=== PATIENT | female | born 1940 | race Caucasian/White ===

== ENCOUNTER → 2018-01-08 07:06 | Outpatient (CLI) | payer MEDICARE, OTHER, SELFPAY ==
[2018-01-08 08:39] LABS: Add Manual Diff / Slide Review NO; Basophils Percent Auto 0.9 % (0-2); Eosinophils Percent Auto 2.3 % (2-4); Hematocrit 40.3 % (36-46); Hemoglobin 13.9 g/dL (12.0-16.0); Mean Corpuscular HGB Conc 34.6 % (30-36); Mean Corpuscular Hemoglobin 31.8 PG (26-34); Mean Corpuscular Volume 91.7 fL (80-100); Monocytes Percent Auto 13.3 % (3-14); Neutrophils Absolute Auto 1900 /uL (3000-5900); Neutrophils Percent Auto 40.5 % (50-75); Platelet Count 213 X10^3/uL (150-400); Red Blood Cell Count 4.39 X10^6/uL (4.0-5.2); Red Cell Distribution Width 12.8 % (11.6-14.8); White Blood Cell Count 4.6 X10^3/uL (4.5-11.0)
[2018-01-08 09:13] LABS: Alanine Aminotransferase 31 IU/L (9-52); Albumin 4.1 g/dL (3.5-5.0); Albumin Globulin Ratio 1.5 (1.0-2.8); Alkaline Phosphatase 93 U/L (38-126); Aspartate Aminotransferase 37 IU/L (14-36); Bilirubin Total 0.5 mg/dL (0.2-1.3); Calcium 9.5 mg/dL (8.4-10.2); Cholesterol 185 mg/dL (140-199); Estimated Glomerular Filt Rate > 60.0 mL/min (>60); Globulin 2.8 g/dL (1.7-4.1); Glucose 95 mg/dL (80-110); HDL Cholesterol 67 mg/dL (40-60); HEMOLYSIS < 15 (0-50); LDL Cholesterol Calculated 100 mg/dL (<100); Potassium 4.1 mmol/L (3.4-5.1); Sodium 139 mmol/L (137-145); Total Protein 6.9 g/dL (6.3-8.2); Triglycerides 89 mg/dL (35-150)
== END ==
PROVIDERS: PCP Internal Medicine; Visit Provider Internal Medicine
DX: I10 Essential (primary) hypertension (principal); E78.2 Mixed hyperlipidemia
CPT/HCPCS: 36415; 80053; 80061; 85025

== ENCOUNTER 2018-03-04 14:09 | Inpatient (IN) | payer MEDICARE, OTHER, SELFPAY ==
[2018-03-04] VITALS (12 sets, daily range): BP systolic 103–143; BP diastolic 61–88; PULSE 84–143; RESP 10–24; TEMP 36.5–37.1; O2SAT 95–100; BMI 23.7
--- NOTE | 2018-03-04 14:24 | ED.DIZZY ---
HPI - Dizziness <VARSHA Parks - Last Filed: 03/04/18 22:43> General Chief Complaint: Dizziness Stated Complaint: SHORTNESS OF BREATH,SHAKY Time Seen by Provider: 03/04/18 14:23 History of Present Illness HPI Narrative: 77-year-old female here for complaint of feeling lightheaded and slightly dizzy today. She reports that she started feeling like this when she woke up this morning at approximately 4 o'clock. She reports when she stood up she started feeling lightheaded. She denies any chest pain. Although she does state that she feels slightly different in the chest no shortness of breath. No fevers no chills. She denies any nausea or vomiting. She was able to ambulate into the emergency room. She denies any cardiac history. She denies any stressors or Related Data Home Medications Medication Instructions Recorded Confirmed NUTRITIONAL SUPPLEMENT (CRANBERRY) 1 cap PO Q DAY #0 06/27/11 03/04/18 Vitamin D3 2,000 iu PO Q DAY #0 06/27/11 03/04/18 polyethylene glycol 3350 [Miralax] 17 gm PO Q DAY #0 01/28/12 03/04/18 pramipexole [Mirapex] 0.25 mg PO HS 03/04/18 03/04/18 Previous Rx's Medication Instructions Recorded estradiol [Vagifem] 10 mcg VG SEE INSTRUCTIONS #90 tab 11/25/17 simvastatin 40 mg tablet 40 mg PO Q DAY #365 tab 01/07/18 apixaban [Eliquis] 5 mg PO BID #30 tab 03/05/18 diltiazem HCl 240 mg PO DAILY #30 cap 03/05/18 Allergies Allergy/AdvReac Type Severity Reaction Status Date / Time niacin [NIACIN] AdvReac Unknown itching Verified 01/07/18 11:39 Review of Systems <VARSHA Parks - Last Filed: 03/04/18 22:43> Constitutional Denies chills, Denies fatigue, Denies fever(s), Denies lethargy and Denies weakness Eyes Denies change in vision, Denies eye discharge, Denies irritation and Denies loss of vision ENT Ears, Nose, Mouth, and Throat: Denies change in voice, Denies neck pain and Denies sore throat Cardiovascular Denies chest pain, Reports lightheadedness, Denies dyspnea and Denies dyspnea on exertion Respiratory Denies cough, Denies dyspnea, Denies dyspnea on exertion and Denies wheezing Gastrointestinal Gastrointestinal: Denies abdominal pain, Denies change in bowel habits, Denies diarrhea, Denies nausea and Denies vomiting Genitourinary Denies hematuria, Denies flank pain, Denies urinary incontinence and Denies urinary urgency Musculoskeletal Denies neck pain Integumentary/Breasts Denies pruritus, Denies erythema, Denies rash and Denies wounds Neurologic Denies confusion, Denies loss of vision and Denies weakness Psychiatric Denies anxiety, Denies confusion, Denies depression, Denies homicidal ideation and Denies suicidal ideation Endocrine Denies fatigue and Denies flushing Hematologic/Lymphatic Denies easy bruising Allergic/Immunologic Denies wheezing Exam <VARSHA Parks - Last Filed: 03/04/18 22:43> Initial Vital Signs Initial Vital Signs: Vital Signs Temperature 97.8 F 03/04/18 14:19 Pulse Rate 137 H 03/04/18 14:19 Respiratory Rate 22 03/04/18 14:19 Blood Pressure 118/80 03/04/18 14:19 Pulse Oximetry 97 03/04/18 14:19 Const General: cooperative and well developed Nutritional Appearance: well nourished Orientation: alert, awake, oriented x3 and not confused [facility] Mouth: oral mucosae normal and moist mucous membranes Eyes Conjunctivae: conjunctivae normal Sclera: sclerae normal Pupils: PERRL EOM: EOM intact bilaterally Resp Effort & Inspection: normal respiratory effort, able to speak in complete sentences, no respiratory distress and no use of accessory muscles Auscultation: clear to auscultation bilaterally, no rales, no rhonchi and no wheezes Cardio Rate: tachycardic Rhythm: abnormal rhythm regularly irregular Heart Sounds: no click, no gallops, no murmurs and no rubs Pulses: normal peripheral pulses Skin General: no rashes or lesions noted, No jaundice and No petechiae Extrem General: full ROM, no clubbing, cyanosis or edema, no pedal edema, no calf tenderness and No edema <Faye Soler DO - Last Filed: 03/08/18 06:33> Initial Vital Signs Initial Vital Signs: Vital Signs Temperature 97.8 F 07/19/18 14:19 Pulse Rate 137 H 03/04/18 14:19 Respiratory Rate 22 03/04/18 14:19 Blood Pressure 118/80 03/04/18 14:19 Pulse Oximetry 97 03/04/18 14:19 Course <VARSHA Parks - Last Filed: 03/04/18 22:43> Orders Ordered: Discontinued Medications Apixaban (Eliquis) 5 mg PO BID [facility] Last Admin: 03/05/18 18:30 Dose: 5 mg Admin: 03/05/18 09:18 Dose: 5 mg Admin: 03/04/18 20:15 Dose: 5 mg Diltiazem HCl (Cardizem) 20 mg IV NOW ONE Stop: 03/04/18 14:31 Last Admin: 03/04/18 15:59 Dose: Diltiazem HCl (Cardizem) 10 mg IV NOW ONE Stop: 03/04/18 14:51 Last Admin: 03/04/18 14:25 Dose: 10 mg Diltiazem HCl (Cardizem) 30 mg PO Q6HR [facility] Last Admin: 03/05/18 12:49 Dose: 30 mg Admin: 03/05/18 09:17 Dose: 30 mg Diltiazem HCl (Cardizem) 30 mg PO NOW ONE Stop: 03/05/18 13:55 Last Admin: 03/05/18 14:00 Dose: 30 mg Diltiazem HCl (Cardizem) 60 mg PO Q6HR [facility] Diltiazem HCl (Cardizem Cd) 240 mg PO DAILY [facility] Last Admin: 03/05/18 18:50 Dose: 240 mg Diltiazem HCl 125 mg/ Dextrose 125 mls @ 5 mls/hr IV TITRATE [facility]; Protocol Last Admin: 03/05/18 14:52 Dose: Sodium Chloride (Normal Saline 0.9%) 500 mls @ 500 mls/hr IV BOLUS ONE Stop: 03/04/18 20:20 Last Infusion: 03/04/18 20:15 Dose: 0 mls/hr Admin: 03/04/18 19:14 Dose: 500 mls/hr Sodium Chloride (Normal Saline 0.9%) 250 mls @ 21 mls/hr IV Q24H PRN PRN Reason: Flush Metoprolol Tartrate (Lopressor) 25 mg PO NOW ONE Stop: 03/04/18 17:15 Last Admin: 03/04/18 17:21 Dose: 25 mg Pramipexole Dihydrochloride (Mirapex) 0.25 mg PO 1900 [facility] Last Admin: 03/04/18 22:01 Dose: 0.25 mg Admin: 03/04/18 21:58 Dose: 0.25 mg Vital Signs - 8 hr 03/04/18 15:41 03/04/18 16:00 03/04/18 17:07 Temperature Pulse Rate 104 H 102 H 106 H Respiratory Rate 15 15 13 Blood Pressure Blood Pressure [Right Arm] 123/81 H 109/61 120/76 Pulse Oximetry 100 95 99 03/04/18 18:05 03/04/18 19:00 03/04/18 19:10 Temperature 98.8 F Pulse Rate 113 H 101 H 94 H Respiratory Rate 24 19 11 L Blood Pressure 120/88 H 117/84 H 143/79 H Blood Pressure [Right Arm] Pulse Oximetry 100 97 99 03/04/18 20:00 03/04/18 21:00 03/04/18 22:00 Temperature 97.7 F 97.8 F Pulse Rate 93 H 84 84 Respiratory Rate 10 L 12 13 Blood Pressure 127/87 H 107/62 103/68 Blood Pressure [Right Arm] Pulse Oximetry 97 95 95 <Faye Soler, DO - Last Filed: 03/08/18 06:33> Orders Ordered: Discontinued Medications Apixaban (Eliquis) 5 mg PO BID [facility] Last Admin: 03/05/18 18:30 Dose: 5 mg Admin: 03/05/18 09:18 Dose: 5 mg Admin: 03/04/18 20:15 Dose: 5 mg Diltiazem HCl (Cardizem) 20 mg IV NOW ONE Stop: 03/04/18 14:31 Last Admin: 03/04/18 15:59 Dose: Diltiazem HCl (Cardizem) 10 mg IV NOW ONE Stop: 03/04/18 14:51 Last Admin: 03/04/18 14:25 Dose: 10 mg Diltiazem HCl (Cardizem) 30 mg PO Q6HR [facility] Last Admin: 03/05/18 12:49 Dose: 30 mg Admin: 03/05/18 09:17 Dose: 30 mg Diltiazem HCl (Cardizem) 30 mg PO NOW ONE Stop: 03/05/18 13:55 Last Admin: 03/05/18 14:00 Dose: 30 mg Diltiazem HCl (Cardizem) 60 mg PO Q6HR [facility] Diltiazem HCl (Cardizem Cd) 240 mg PO DAILY [facility] Last Admin: 03/05/18 18:50 Dose: 240 mg Diltiazem HCl 125 mg/ Dextrose 125 mls @ 5 mls/hr IV TITRATE [facility]; Protocol Last Admin: 03/05/18 14:52 Dose: Sodium Chloride (Normal Saline 0.9%) 500 mls @ 500 mls/hr IV BOLUS ONE Stop: 03/04/18 20:20 Last Infusion: 03/04/18 20:15 Dose: 0 mls/hr Admin: 03/04/18 19:14 Dose: 500 mls/hr Sodium Chloride (Normal Saline 0.9%) 250 mls @ 21 mls/hr IV Q24H PRN PRN Reason: Flush Metoprolol Tartrate (Lopressor) 25 mg PO NOW ONE Stop: 03/04/18 17:15 Last Admin: 03/04/18 17:21 Dose: 25 mg Pramipexole Dihydrochloride (Mirapex) 0.25 mg PO 1900 [facility] Last Admin: 03/04/18 22:01 Dose: 0.25 mg Admin: 03/04/18 21:58 Dose: 0.25 mg Vital Signs - 8 hr 03/04/18 15:41 03/04/18 16:00 03/04/18 17:07 Temperature Pulse Rate 104 H 102 H 106 H Respiratory Rate 15 15 13 Blood Pressure Blood Pressure [Right Arm] 123/81 H 109/61 120/76 Pulse Oximetry 100 95 99 03/04/18 18:05 03/04/18 19:00 03/04/18 19:10 Temperature 98.8 F Pulse Rate 113 H 101 H 94 H Respiratory Rate 24 19 11 L Blood Pressure 120/88 H 117/84 H 143/79 H Blood Pressure [Right Arm] Pulse Oximetry 100 97 99 03/04/18 20:00 03/04/18 21:00 03/04/18 22:00 Temperature 97.7 F 97.8 F Pulse Rate 93 H 84 84 Respiratory Rate 10 L 12 13 Blood Pressure 127/87 H 107/62 103/68 Blood Pressure [Right Arm] Pulse Oximetry 97 95 95 MDM - Dizziness <Lm EspitiaVARSHA - Last Filed: 03/04/18 22:43> Lab Data Result diagrams: 03/05/18 04:30 03/05/18 04:30 Lab Results 03/04/18 03/04/18 03/04/18 Range/Units 14:25 14:25 14:25 WBC 8.9 (4.5-11.0) X10^3/uL RBC 4.79 (4.0-5.2) X10^6/uL Hgb 15.1 (12.0-16.0) g/dL Hct 44.4 (36-46) % MCV 92.5 (80-100) fL MCH 31.4 (26-34) PG MCHC 34.0 (30-36) % RDW 13.3 (11.6-14.8) % Plt Count 289 (150-400) X10^3/uL Neut % (Auto) 64.4 (50-75) % Lymph % (Auto) 25.6 (25-40) % [place] % (Auto) 9.8 (3-14) % Eos % (Auto) 0.0 L (2-4) % Baso % (Auto) 0.2 (0-2) % Neut # (Auto) 5700 (0405-2751) /uL PT 11.6 (10.1-12.7) SECONDS INR 1.1 (0.9-1.3) APTT 27 (26.4-36.2) SECONDS Sodium 138 (137-145) mmol/L Potassium 4.0 (3.4-5.1) mmol/L Chloride 104 (98-107) mmol/L Carbon Dioxide 24 (22-32) mmol/L BUN 32 H (7-17) mg/dL Creatinine 1.00 (0.52-1.04) mg/dL Estimated GFR 54.1 L (>60) mL/min BUN/Creatinine Ratio 32.0 H (6-22) Glucose 125 H (80-110) mg/dL Calcium 9.4 (8.4-10.2) mg/dL Magnesium (1.6-2.3) mg/dL Total Bilirubin 0.7 (0.2-1.3) mg/dL AST 35 (14-36) IU/L ALT 29 (9-52) IU/L Alkaline Phosphatase 73 (38-126) U/L Total Creatine Kinase 103 (30-135) U/L CK-MB (CK-2) 1.99 (<2.37) ng/mL CK-MB (CK-2) Rel Index 1.9 (1.5-5.0) % Troponin I < 0.012 (0.01-0.034) ng/mL Total Protein 7.4 (6.3-8.2) g/dL Albumin 4.4 (3.5-5.0) g/dL Globulin 3.0 (1.7-4.1) g/dL Albumin/Globulin Ratio 1.5 (1.0-2.8) TSH (0.47-4.68) uIU/mL 03/04/18 03/04/18 03/05/18 Range/Units 14:25 14:25 04:30 WBC 7.8 (4.5-11.0) X10^3/uL RBC 4.97 (4.0-5.2) X10^6/uL Hgb 15.7 (12.0-16.0) g/dL Hct 46.2 H (36-46) % MCV 92.9 (80-100) fL MCH 31.5 (26-34) PG MCHC 33.9 (30-36) % RDW 13.3 (11.6-14.8) % Plt Count 290 (150-400) X10^3/uL Neut % (Auto) 52.6 (50-75) % Lymph % (Auto) 34.9 (25-40) % [place] % (Auto) 11.8 (3-14) % Eos % (Auto) 0.3 L (2-4) % Baso % (Auto) 0.4 (0-2) % Neut # (Auto) 4100 (9164-8006) /uL PT (10.1-12.7) SECONDS INR (0.9-1.3) APTT (26.4-36.2) SECONDS Sodium (137-145) mmol/L Potassium (3.4-5.1) mmol/L Chloride (98-107) mmol/L Carbon Dioxide (22-32) mmol/L BUN (7-17) mg/dL Creatinine (0.52-1.04) mg/dL Estimated GFR (>60) mL/min BUN/Creatinine Ratio (6-22) Glucose (80-110) mg/dL Calcium (8.4-10.2) mg/dL Magnesium 2.4 H (1.6-2.3) mg/dL Total Bilirubin (0.2-1.3) mg/dL AST (14-36) IU/L ALT (9-52) IU/L Alkaline Phosphatase (38-126) U/L Total Creatine Kinase (30-135) U/L CK-MB (CK-2) (<2.37) ng/mL CK-MB (CK-2) Rel Index (1.5-5.0) % Troponin I (0.01-0.034) ng/mL Total Protein (6.3-8.2) g/dL Albumin (3.5-5.0) g/dL Globulin (1.7-4.1) g/dL Albumin/Globulin Ratio (1.0-2.8) TSH 2.11 (0.47-4.68) uIU/mL 03/05/ Range/Units 04:30 WBC (4.5-11.0) X10^3/uL RBC (4.0-5.2) X10^6/uL Hgb (12.0-16.0) g/dL Hct (36-46) % MCV (80-100) fL MCH (26-34) PG MCHC (30-36) % RDW (11.6-14.8) % Plt Count (150-400) X10^3/uL Neut % (Auto) (50-75) % Lymph % (Auto) (25-40) % [place] % (Auto) (3-14) % Eos % (Auto) (2-4) % Baso % (Auto) (0-2) % Neut # (Auto) (0171-4987) /uL PT (10.1-12.7) SECONDS INR (0.9-1.3) APTT (26.4-36.2) SECONDS Sodium 138 (137-145) mmol/L Potassium 4.0 (3.4-5.1) mmol/L Chloride 104 (98-107) mmol/L Carbon Dioxide 26 (22-32) mmol/L BUN 23 H (7-17) mg/dL Creatinine 0.80 (0.52-1.04) mg/dL Estimated GFR > 60.0 (>60) mL/min BUN/Creatinine Ratio 28.8 H (6-22) Glucose 107 (80-110) mg/dL Calcium 9.0 (8.4-10.2) mg/dL Magnesium (1.6-2.3) mg/dL Total Bilirubin 0.5 (0.2-1.3) mg/dL AST 30 (14-36) IU/L ALT 32 (9-52) IU/L Alkaline Phosphatase 71 (38-126) U/L Total Creatine Kinase (30-135) U/L CK-MB (CK-2) (<2.37) ng/mL CK-MB (CK-2) Rel Index (1.5-5.0) % Troponin I (0.01-0.034) ng/mL Total Protein 7.0 (6.3-8.2) g/dL Albumin 4.1 (3.5-5.0) g/dL Globulin 2.9 (1.7-4.1) g/dL Albumin/Globulin Ratio 1.4 (1.0-2.8) TSH (0.47-4.68) uIU/mL Imaging Data CT scan - chest: Radiologist's impression: Signed Patient: [place] Sierra MR#: [id number] : 1940 Acct:[id number] Age/Sex: 77 / F Date of Service: 03/04/18 Loc: ED Accession Number: [id number] Procedure: CT angio chest PE protocol Ordering Provider: Lm Espitia PROCEDURE: CT ANGIO CHEST PE PROTOCOL INDICATIONS: New onset AFib RVR history of breast cancer TECHNIQUE: After the administration of intravenous contrast, 2 mm thick sections acquired from the pulmonary apices to the posterior costophrenic angles. 3-dimensional maximum intensity projection (MIP) coronal and sagittal reformats were then acquired through the thorax. For radiation dose reduction, the following was used: automated exposure control, adjustment of mA and/or kV according to patient size. COMPARISON: [facility], CT, CT CARTER, 09/08/2016, 13:32. FINDINGS: Image quality: Excellent. Pulmonary arteries: Pulmonary arteries are prominent in size, and demonstrate no intraluminal filling defects to suggest central pulmonary embolism. Lungs and pleura: There is 11 mm left apical nodule (se 6 im 14). There is an ill-defined right middle lobe pulmonary nodule measuring up to 8 mm (se 6 im 48). No pleural effusions or pneumothorax. Central and peripheral airways are patent. Mediastinum: Heart size is normal, without pericardial effusion. There is a possible filling defect in the left ventricle. Right atrial enlargement. No mediastinal or hilar adenopathy. Thoracic aorta is normal in caliber and enhancement. Esophagus is normal in caliber, without hiatal hernia. Bones and chest wall: No suspicious bony lesions. Right mastectomy with implant reconstruction. Right axillary postoperative change. Abdomen: Visualized upper abdominal solid organs appear normal in the early arterial phase of enhancement. IMPRESSION: 1. No CT evidence of acute pulmonary emboli. The pulmonary arteries are prominent in size which may represent elevated pressure. 2. Possible filling defect within the left ventricle. Please note study is not performed with cardiac gating which precludes definitive evaluation of cardiac lumens. 3. Bilateral pulmonary nodules. Recommend followup as described below. Fleischner Society criteria for SOLID lung nodule followup. Nodule size (mm)Low-risk patientHigh-risk patient?4No follow-up neededFollow-up at 12 mo; if no change, no further follow-up>[id number] CT at 12 mo; if no change, no further follow-up needed.Initial follow-up CT at 6-12 mo, then 18-24 mo if no change. >6-8Initial follow-up CT at 6-12 mo, then 18-24 mo if no change. Initial follow-up CT at 3-6 mo, then 9-12 mo and 24 mo if no change. >8Follow-up CT at 3, 9, 24 mo. Or PET and/or biopsy.Same as for low-risk pts. Dictated by: Luis Fernando Cruz M.D. on 03/04/2018 at 16:08 Approved by: Luis Fernando Cruz M.D. on 03/04/2018 at 16:16 ECG Data Interpretation: EKG shows atrial fibrillation with RVR ventricular rate of 130. QRS duration of 101. QT of 330. MDM Narrative Medical decision making narrative: ekg shows Afib with RVR no prior history of AFib. She was treated with 10 mg of diltiazem iv which decreased here ventricular rate to approximately about 100. Although blood pressure systolic lead dropped to the 90s. She was not given any further diltiazem. PE chest CT was obtained and was negative for blood clot does show a incidental finding of 8 mm nodule to the left lung. CBC was unremarkable. Chem panel shows GFR of 54.1 otherwise was unremarkable. Coags were normal. Cardiac enzymes were obtained and were unremarkable. Patient's ventricular rate started to climb back up into 115-120 area. She was given 25 mg of metoprolol orally. Due to rate control patient is admitted to hospital. Discussed case with hospitalist Dr. Lynch. Who accepted patient. Patient admitted inpatient services. Patient did not have symptoms of chest pain or shortness of breath although she did state she felt different. <Faye Soler, DO - Last Filed: 03/08/18 06:33> Lab Data Attestation: I reviewed the patient's lab results. Lab Results 03/04/18 03/04/18 03/04/18 Range/Units 14:25 14:25 14:25 WBC 8.9 (4.5-11.0) X10^3/uL RBC 4.79 (4.0-5.2) X10^6/uL Hgb 15.1 (12.0-16.0) g/dL Hct 44.4 (36-46) % MCV 92.5 (80-100) fL MCH 31.4 (26-34) PG MCHC 34.0 (30-36) % RDW 13.3 (11.6-14.8) % Plt Count 289 (150-400) X10^3/uL Neut % (Auto) 64.4 (50-75) % Lymph % (Auto) 25.6 (25-40) % [place] % (Auto) 9.8 (3-14) % Eos % (Auto) 0.0 L (2-4) % Baso % (Auto) 0.2 (0-2) % Neut # (Auto) 5700 (3052-2847) /uL PT 11.6 (10.1-12.7) SECONDS INR 1.1 (0.9-1.3) APTT 27 (26.4-36.2) SECONDS Sodium 138 (137-145) mmol/L Potassium 4.0 (3.4-5.1) mmol/L Chloride 104 (98-107) mmol/L Carbon Dioxide 24 (22-32) mmol/L BUN 32 H (7-17) mg/dL Creatinine 1.00 (0.52-1.04) mg/dL Estimated GFR 54.1 L (>60) mL/min BUN/Creatinine Ratio 32.0 H (6-22) Glucose 125 H (80-110) mg/dL Calcium 9.4 (8.4-10.2) mg/dL Magnesium (1.6-2.3) mg/dL Total Bilirubin 0.7 (0.2-1.3) mg/dL AST 35 (14-36) IU/L ALT 29 (9-52) IU/L Alkaline Phosphatase 73 (38-126) U/L Total Creatine Kinase 103 (30-135) U/L CK-MB (CK-2) 1.99 (<2.37) ng/mL CK-MB (CK-2) Rel Index 1.9 (1.5-5.0) % Troponin I < 0.012 (0.01-0.034) ng/mL Total Protein 7.4 (6.3-8.2) g/dL Albumin 4.4 (3.5-5.0) g/dL Globulin 3.0 (1.7-4.1) g/dL Albumin/Globulin Ratio 1.5 (1.0-2.8) TSH (0.47-4.68) uIU/mL 03/04/18 03/04/18 03/05/18 Range/Units 14:25 14:25 04:30 WBC 7.8 (4.5-11.0) X10^3/uL RBC 4.97 (4.0-5.2) X10^6/uL Hgb 15.7 (12.0-16.0) g/dL Hct 46.2 H (36-46) % MCV 92.9 (80-100) fL MCH 31.5 (26-34) PG MCHC 33.9 (30-36) % RDW 13.3 (11.6-14.8) % Plt Count 290 (150-400) X10^3/uL Neut % (Auto) 52.6 (50-75) % Lymph % (Auto) 34.9 (25-40) % [place] % (Auto) 11.8 (3-14) % Eos % (Auto) 0.3 L (2-4) % Baso % (Auto) 0.4 (0-2) % Neut # (Auto) 4100 (7994-0932) /uL PT (10.1-12.7) SECONDS INR (0.9-1.3) APTT (26.4-36.2) SECONDS Sodium (137-145) mmol/L Potassium (3.4-5.1) mmol/L Chloride (98-107) mmol/L Carbon Dioxide (22-32) mmol/L BUN (7-17) mg/dL Creatinine (0.52-1.04) mg/dL Estimated GFR (>60) mL/min BUN/Creatinine Ratio (6-22) Glucose (80-110) mg/dL Calcium (8.4-10.2) mg/dL Magnesium 2.4 H (1.6-2.3) mg/dL Total Bilirubin (0.2-1.3) mg/dL AST (14-36) IU/L ALT (9-52) IU/L Alkaline Phosphatase (38-126) U/L Total Creatine Kinase (30-135) U/L CK-MB (CK-2) (<2.37) ng/mL CK-MB (CK-2) Rel Index (1.5-5.0) % Troponin I (0.01-0.034) ng/mL Total Protein (6.3-8.2) g/dL Albumin (3.5-5.0) g/dL Globulin (1.7-4.1) g/dL Albumin/Globulin Ratio (1.0-2.8) TSH 2.11 (0.47-4.68) uIU/mL 03/05/18 Range/Units 04:30 WBC (4.5-11.0) X10^3/uL RBC (4.0-5.2) X10^6/uL Hgb (12.0-16.0) g/dL Hct (36-46) % MCV (80-100) fL MCH (26-34) PG MCHC (30-36) % RDW (11.6-14.8) % Plt Count (150-400) X10^3/uL Neut % (Auto) (50-75) % Lymph % (Auto) (25-40) % [place] % (Auto) (3-14) % Eos % (Auto) (2-4) % Baso % (Auto) (0-2) % Neut # (Auto) (7541-2796) /uL PT (10.1-12.7) SECONDS INR (0.9-1.3) APTT (26.4-36.2) SECONDS Sodium 138 (137-145) mmol/L Potassium 4.0 (3.4-5.1) mmol/L Chloride 104 (98-107) mmol/L Carbon Dioxide 26 (22-32) mmol/L BUN 23 H (7-17) mg/dL Creatinine 0.80 (0.52-1.04) mg/dL Estimated GFR > 60.0 (>60) mL/min BUN/Creatinine Ratio 28.8 H (6-22) Glucose 107 (80-110) mg/dL Calcium 9.0 (8.4-10.2) mg/dL Magnesium (1.6-2.3) mg/dL Total Bilirubin 0.5 (0.2-1.3) mg/dL AST 30 (14-36) IU/L ALT 32 (9-52) IU/L Alkaline Phosphatase 71 (38-126) U/L Total Creatine Kinase (30-135) U/L CK-MB (CK-2) (<2.37) ng/mL CK-MB (CK-2) Rel Index (1.5-5.0) % Troponin I (0.01-0.034) ng/mL Total Protein 7.0 (6.3-8.2) g/dL Albumin 4.1 (3.5-5.0) g/dL Globulin 2.9 (1.7-4.1) g/dL Albumin/Globulin Ratio 1.4 (1.0-2.8) TSH (0.47-4.68) uIU/mL ECG Data Attestation: I personally reviewed and interpreted this ECG as follows: Prior ECG tracings: not available for review Interpretation: EKG 1. atrial fibrillation rate [address] changes Q-wave noted in lead 3 some artifact noted in V4 EKG 2. Atrial fibrillation rate 134 with artifact still noted in V4 no ST changes Discharge Plan Departure Patient Disposition: Admitted As Inpatient Clinical Impression: Atrial fibrillation with RVR Discharge Date/Time: 03/04/18 18:17 Interventions: ED Discharge Assessment Last Done: 03/04/18 18:05 Admit Date/Time: 03/04/18 18:06 Admit Provider: Alma Rosa Lynch <Faye Soler DO - Last Filed: 03/08/18 06:33> Cosign ED Attending Margiature Attestation: I discussed all findings with the patient [and /spouse mother], Education has been performed regarding treatment plan, diagnosis, warning signs and symptoms and all concerns have been addressed. Verbally agree with and understood all of the above.
[2018-03-04] MEDS: dilTIAZem 25 MG/5 ML SDV 10 MG IV (14:25)
--- NOTE | 2018-03-04 14:31 | DI.RAD.S_ITS ---
PROCEDURE: XR CHEST 1V INDICATIONS: Lightheadedness TECHNIQUE: One view of the chest was acquired. COMPARISON: None. FINDINGS: Surgical changes and devices: Surgical clips projecting in the right axilla Lungs and pleura: No pleural effusions or pneumothorax. Lungs are clear. Diffuse mild scarring/atelectasis Mediastinum: Mediastinal contours appear normal. Heart size is normal. Bones and chest wall: No suspicious bony lesions. Overlying soft tissues appear unremarkable. IMPRESSION: Diffuse scarring/atelectasis. No acute consolidation. Dictated by: Angel Luis Winter M.D. on 03/04/2018 at 16:55 Approved by: Angel Luis Winter M.D. on 03/04/2018 at 16:57
[2018-03-04 14:39] LABS: Add Manual Diff / Slide Review NO; Basophils Percent Auto 0.2 % (0-2); Hematocrit 44.4 % (36-46); Hemoglobin 15.1 g/dL (12.0-16.0); Lymphocytes Percent Auto 25.6 % (25-40); Mean Corpuscular Hemoglobin 31.4 PG (26-34); Mean Corpuscular Volume 92.5 fL (80-100); Monocytes Percent Auto 9.8 % (3-14); Neutrophils Absolute Auto 5700 /uL (3000-5900); Neutrophils Percent Auto 64.4 % (50-75); Platelet Count 289 X10^3/uL (150-400); Red Blood Cell Count 4.79 X10^6/uL (4.0-5.2); Red Cell Distribution Width 13.3 % (11.6-14.8); White Blood Cell Count 8.9 X10^3/uL (4.5-11.0)
[2018-03-04 14:45] LABS: Alanine Aminotransferase 29 IU/L (9-52); Albumin 4.4 g/dL (3.5-5.0); Albumin Globulin Ratio 1.5 (1.0-2.8); Alkaline Phosphatase 73 U/L (38-126); Aspartate Aminotransferase 35 IU/L (14-36); Bilirubin Total 0.7 mg/dL (0.2-1.3); Blood Urea Nitrogen 32 mg/dL (7-17); Calcium 9.4 mg/dL (8.4-10.2); Carbon Dioxide 24 mmol/L (22-32); Chloride 104 mmol/L (98-107); Creatine Kinase 103 U/L (30-135); Estimated Glomerular Filt Rate 54.1 mL/min (>60); Glucose 125 mg/dL (80-110); Sodium 138 mmol/L (137-145); Total Protein 7.4 g/dL (6.3-8.2)
--- NOTE | 2018-03-04 14:53 | DI.CT.S_ITS ---
PROCEDURE: CT ANGIO CHEST PE PROTOCOL INDICATIONS: New onset AFib RVR history of breast cancer TECHNIQUE: After the administration of intravenous contrast, 2 mm thick sections acquired from the pulmonary apices to the posterior costophrenic angles. 3-dimensional maximum intensity projection (MIP) coronal and sagittal reformats were then acquired through the thorax. For radiation dose reduction, the following was used: automated exposure control, adjustment of mA and/or kV according to patient size. COMPARISON: [facility], CT, CT CARTER, 09/08/2016, 13:32. FINDINGS: Image quality: Excellent. Pulmonary arteries: Pulmonary arteries are prominent in size, and demonstrate no intraluminal filling defects to suggest central pulmonary embolism. Lungs and pleura: There is 11 mm left apical nodule (se 6 im 14). There is an ill-defined right middle lobe pulmonary nodule measuring up to 8 mm (se 6 im 48). No pleural effusions or pneumothorax. Central and peripheral airways are patent. Mediastinum: Heart size is normal, without pericardial effusion. There is a possible filling defect in the left ventricle. Right atrial enlargement. No mediastinal or hilar adenopathy. Thoracic aorta is normal in caliber and enhancement. Esophagus is normal in caliber, without hiatal hernia. Bones and chest wall: No suspicious bony lesions. Right mastectomy with implant reconstruction. Right axillary postoperative change. Abdomen: Visualized upper abdominal solid organs appear normal in the early arterial phase of enhancement. IMPRESSION: 1. No CT evidence of acute pulmonary emboli. The pulmonary arteries are prominent in size which may represent elevated pressure. 2. Possible filling defect within the left ventricle. Please note study is not performed with cardiac gating which precludes definitive evaluation of cardiac lumens. 3. Bilateral pulmonary nodules. Recommend followup as described below. Fleischner Society criteria for SOLID lung nodule followup. Nodule size (mm)Low-risk patientHigh-risk patient?4No follow-up neededFollow-up at 12 mo; if no change, no further follow-up>7-7Otjjuz-uv CT at 12 mo; if no change, no further follow-up needed.Initial follow-up CT at 6-12 mo, then 18-24 mo if no change. >6-8Initial follow-up CT at 6-12 mo, then 18-24 mo if no change. Initial follow-up CT at 3-6 mo, then 9-12 mo and 24 mo if no change. >8Follow-up CT at 3, 9, 24 mo. Or PET and/or biopsy.Same as for low-risk pts. Dictated by: Luis Fernando Cruz M.D. on 03/04/2018 at 16:08 Approved by: Luis Fernando Cruz M.D. on 03/04/2018 at 16:16
[2018-03-04 14:58] LABS: Troponin I < 0.012 ng/mL (0.01-0.034)
[2018-03-04 15:00] LABS: CKMB % Relative Index 1.9 % (1.5-5.0); Creatine Kinase MB 1.99 ng/mL (<2.37); HEMOLYSIS 20 (0-50)
--- NOTE | 2018-03-04 15:26 | PC.NURSE ---
Hr decreased to 90s but continues with afib.
--- NOTE | 2018-03-04 15:49 | PC.NURSE ---
PT had a 6 beat run of VTAC. Pt reported some pressure in left side of chest just prior to episode. BP stable at 126/92. hr at 94. Provider aware. no new orders given at this time.
[2018-03-04 16:17] LABS: INR 1.1 (0.9-1.3); Prothrombin Time 11.6 SECONDS (10.1-12.7)
[2018-03-04 16:20] LABS: PTT Partial Thromboplastin Tim 27 SECONDS (26.4-36.2)
--- NOTE | 2018-03-04 16:38 | ED_ITS ---
HPI - Dizziness <VARSHA Parks - Last Filed: 03/04/18 22:43> General Chief Complaint: Dizziness Stated Complaint: SHORTNESS OF BREATH,SHAKY Time Seen by Provider: 03/04/18 14:23 History of Present Illness HPI Narrative: 77-year-old female here for complaint of feeling lightheaded and slightly dizzy today. She reports that she started feeling like this when she woke up this morning at approximately 4 o'clock. She reports when she stood up she started feeling lightheaded. She denies any chest pain. Although she does state that she feels slightly different in the chest no shortness of breath. No fevers no chills. She denies any nausea or vomiting. She was able to ambulate into the emergency room. She denies any cardiac history. She denies any stressors or Related Data Home Medications Medication Instructions Recorded Confirmed NUTRITIONAL SUPPLEMENT (CRANBERRY) 1 cap PO Q DAY #0 06/27/11 03/04/18 Vitamin D3 2,000 iu PO Q DAY #0 06/27/11 03/04/18 polyethylene glycol 3350 [Miralax] 17 gm PO Q DAY #0 01/28/12 03/04/18 pramipexole [Mirapex] 0.25 mg PO HS 03/04/18 03/04/18 Previous Rx's Medication Instructions Recorded estradiol [Vagifem] 10 mcg VG SEE INSTRUCTIONS #90 tab 11/25/17 simvastatin 40 mg tablet 40 mg PO Q DAY #365 tab 01/07/18 apixaban [Eliquis] 5 mg PO BID #30 tab 03/05/18 diltiazem HCl 240 mg PO DAILY #30 cap 03/05/18 Allergies Allergy/AdvReac Type Severity Reaction Status Date / Time niacin [NIACIN] AdvReac Unknown itching Verified 01/07/18 11:39 Review of Systems <VARSHA Parks - Last Filed: 03/04/18 22:43> Constitutional Denies chills, Denies fatigue, Denies fever(s), Denies lethargy and Denies weakness Eyes Denies change in vision, Denies eye discharge, Denies irritation and Denies loss of vision ENT Ears, Nose, Mouth, and Throat: Denies change in voice, Denies neck pain and Denies sore throat Cardiovascular Denies chest pain, Reports lightheadedness, Denies dyspnea and Denies dyspnea on exertion Respiratory Denies cough, Denies dyspnea, Denies dyspnea on exertion and Denies wheezing Gastrointestinal Gastrointestinal: Denies abdominal pain, Denies change in bowel habits, Denies diarrhea, Denies nausea and Denies vomiting Genitourinary Denies hematuria, Denies flank pain, Denies urinary incontinence and Denies urinary urgency Musculoskeletal Denies neck pain Integumentary/Breasts Denies pruritus, Denies erythema, Denies rash and Denies wounds Neurologic Denies confusion, Denies loss of vision and Denies weakness Psychiatric Denies anxiety, Denies confusion, Denies depression, Denies homicidal ideation and Denies suicidal ideation Endocrine Denies fatigue and Denies flushing Hematologic/Lymphatic Denies easy bruising Allergic/Immunologic Denies wheezing Exam <VARSHA Parks - Last Filed: 03/04/18 22:43> Initial Vital Signs Initial Vital Signs: Vital Signs Temperature 97.8 F 03/04/18 14:19 Pulse Rate 137 H 03/04/18 14:19 Respiratory Rate 22 03/04/18 14:19 Blood Pressure 118/80 03/04/18 14:19 Pulse Oximetry 97 03/04/18 14:19 Const General: cooperative and well developed Nutritional Appearance: well nourished Orientation: alert, awake, oriented x3 and not confused [facility] Mouth: oral mucosae normal and moist mucous membranes Eyes Conjunctivae: conjunctivae normal Sclera: sclerae normal Pupils: PERRL EOM: EOM intact bilaterally Resp Effort & Inspection: normal respiratory effort, able to speak in complete sentences, no respiratory distress and no use of accessory muscles Auscultation: clear to auscultation bilaterally, no rales, no rhonchi and no wheezes Cardio Rate: tachycardic Rhythm: abnormal rhythm regularly irregular Heart Sounds: no click, no gallops, no murmurs and no rubs Pulses: normal peripheral pulses Skin General: no rashes or lesions noted, No jaundice and No petechiae Extrem General: full ROM, no clubbing, cyanosis or edema, no pedal edema, no calf tenderness and No edema <Faye Soler DO - Last Filed: 03/08/18 06:33> Initial Vital Signs Initial Vital Signs: Vital Signs Temperature 97.8 F 07/19/18 14:19 Pulse Rate 137 H 03/04/18 14:19 Respiratory Rate 22 03/04/18 14:19 Blood Pressure 118/80 03/04/18 14:19 Pulse Oximetry 97 03/04/18 14:19 Course <VARSHA Parks - Last Filed: 03/04/18 22:43> Orders Ordered: Discontinued Medications Apixaban (Eliquis) 5 mg PO BID [facility] Last Admin: 03/05/18 18:30 Dose: 5 mg Admin: 03/05/18 09:18 Dose: 5 mg Admin: 03/04/18 20:15 Dose: 5 mg Diltiazem HCl (Cardizem) 20 mg IV NOW ONE Stop: 03/04/18 14:31 Last Admin: 03/04/18 15:59 Dose: Diltiazem HCl (Cardizem) 10 mg IV NOW ONE Stop: 03/04/18 14:51 Last Admin: 03/04/18 14:25 Dose: 10 mg Diltiazem HCl (Cardizem) 30 mg PO Q6HR [facility] Last Admin: 03/05/18 12:49 Dose: 30 mg Admin: 03/05/18 09:17 Dose: 30 mg Diltiazem HCl (Cardizem) 30 mg PO NOW ONE Stop: 03/05/18 13:55 Last Admin: 03/05/18 14:00 Dose: 30 mg Diltiazem HCl (Cardizem) 60 mg PO Q6HR [facility] Diltiazem HCl (Cardizem Cd) 240 mg PO DAILY [facility] Last Admin: 03/05/18 18:50 Dose: 240 mg Diltiazem HCl 125 mg/ Dextrose 125 mls @ 5 mls/hr IV TITRATE [facility]; Protocol Last Admin: 03/05/18 14:52 Dose: Sodium Chloride (Normal Saline 0.9%) 500 mls @ 500 mls/hr IV BOLUS ONE Stop: 03/04/18 20:20 Last Infusion: 03/04/18 20:15 Dose: 0 mls/hr Admin: 03/04/18 19:14 Dose: 500 mls/hr Sodium Chloride (Normal Saline 0.9%) 250 mls @ 21 mls/hr IV Q24H PRN PRN Reason: Flush Metoprolol Tartrate (Lopressor) 25 mg PO NOW ONE Stop: 03/04/18 17:15 Last Admin: 03/04/18 17:21 Dose: 25 mg Pramipexole Dihydrochloride (Mirapex) 0.25 mg PO 1900 [facility] Last Admin: 03/04/18 22:01 Dose: 0.25 mg Admin: 03/04/18 21:58 Dose: 0.25 mg Vital Signs - 8 hr 03/04/18 15:41 03/04/18 16:00 03/04/18 17:07 Temperature Pulse Rate 104 H 102 H 106 H Respiratory Rate 15 15 13 Blood Pressure Blood Pressure [Right Arm] 123/81 H 109/61 120/76 Pulse Oximetry 100 95 99 03/04/18 18:05 03/04/18 19:00 03/04/18 19:10 Temperature 98.8 F Pulse Rate 113 H 101 H 94 H Respiratory Rate 24 19 11 L Blood Pressure 120/88 H 117/84 H 143/79 H Blood Pressure [Right Arm] Pulse Oximetry 100 97 99 03/04/18 20:00 03/04/18 21:00 03/04/18 22:00 Temperature 97.7 F 97.8 F Pulse Rate 93 H 84 84 Respiratory Rate 10 L 12 13 Blood Pressure 127/87 H 107/62 103/68 Blood Pressure [Right Arm] Pulse Oximetry 97 95 95 <Faye Soler, DO - Last Filed: 03/08/18 06:33> Orders Ordered: Discontinued Medications Apixaban (Eliquis) 5 mg PO BID [facility] Last Admin: 03/05/18 18:30 Dose: 5 mg Admin: 03/05/18 09:18 Dose: 5 mg Admin: 03/04/18 20:15 Dose: 5 mg Diltiazem HCl (Cardizem) 20 mg IV NOW ONE Stop: 03/04/18 14:31 Last Admin: 03/04/18 15:59 Dose: Diltiazem HCl (Cardizem) 10 mg IV NOW ONE Stop: 03/04/18 14:51 Last Admin: 03/04/18 14:25 Dose: 10 mg Diltiazem HCl (Cardizem) 30 mg PO Q6HR [facility] Last Admin: 03/05/18 12:49 Dose: 30 mg Admin: 03/05/18 09:17 Dose: 30 mg Diltiazem HCl (Cardizem) 30 mg PO NOW ONE Stop: 03/05/18 13:55 Last Admin: 03/05/18 14:00 Dose: 30 mg Diltiazem HCl (Cardizem) 60 mg PO Q6HR [facility] Diltiazem HCl (Cardizem Cd) 240 mg PO DAILY [facility] Last Admin: 03/05/18 18:50 Dose: 240 mg Diltiazem HCl 125 mg/ Dextrose 125 mls @ 5 mls/hr IV TITRATE [facility]; Protocol Last Admin: 03/05/18 14:52 Dose: Sodium Chloride (Normal Saline 0.9%) 500 mls @ 500 mls/hr IV BOLUS ONE Stop: 03/04/18 20:20 Last Infusion: 03/04/18 20:15 Dose: 0 mls/hr Admin: 03/04/18 19:14 Dose: 500 mls/hr Sodium Chloride (Normal Saline 0.9%) 250 mls @ 21 mls/hr IV Q24H PRN PRN Reason: Flush Metoprolol Tartrate (Lopressor) 25 mg PO NOW ONE Stop: 03/04/18 17:15 Last Admin: 03/04/18 17:21 Dose: 25 mg Pramipexole Dihydrochloride (Mirapex) 0.25 mg PO 1900 [facility] Last Admin: 03/04/18 22:01 Dose: 0.25 mg Admin: 03/04/18 21:58 Dose: 0.25 mg Vital Signs - 8 hr 03/04/18 15:41 03/04/18 16:00 03/04/18 17:07 Temperature Pulse Rate 104 H 102 H 106 H Respiratory Rate 15 15 13 Blood Pressure Blood Pressure [Right Arm] 123/81 H 109/61 120/76 Pulse Oximetry 100 95 99 03/04/18 18:05 03/04/18 19:00 03/04/18 19:10 Temperature 98.8 F Pulse Rate 113 H 101 H 94 H Respiratory Rate 24 19 11 L Blood Pressure 120/88 H 117/84 H 143/79 H Blood Pressure [Right Arm] Pulse Oximetry 100 97 99 03/04/18 20:00 03/04/18 21:00 03/04/18 22:00 Temperature 97.7 F 97.8 F Pulse Rate 93 H 84 84 Respiratory Rate 10 L 12 13 Blood Pressure 127/87 H 107/62 103/68 Blood Pressure [Right Arm] Pulse Oximetry 97 95 95 MDM - Dizziness <Lm EspitiaVARSHA - Last Filed: 03/04/18 22:43> Lab Data Result diagrams: 03/05/18 04:30 03/05/18 04:30 Lab Results 03/04/18 03/04/18 03/04/18 Range/Units 14:25 14:25 14:25 WBC 8.9 (4.5-11.0) X10^3/uL RBC 4.79 (4.0-5.2) X10^6/uL Hgb 15.1 (12.0-16.0) g/dL Hct 44.4 (36-46) % MCV 92.5 (80-100) fL MCH 31.4 (26-34) PG MCHC 34.0 (30-36) % RDW 13.3 (11.6-14.8) % Plt Count 289 (150-400) X10^3/uL Neut % (Auto) 64.4 (50-75) % Lymph % (Auto) 25.6 (25-40) % Brooke % (Auto) 9.8 (3-14) % Eos % (Auto) 0.0 L (2-4) % Baso % (Auto) 0.2 (0-2) % Neut # (Auto) 5700 (2883-8935) /uL PT 11.6 (10.1-12.7) SECONDS INR 1.1 (0.9-1.3) APTT 27 (26.4-36.2) SECONDS Sodium 138 (137-145) mmol/L Potassium 4.0 (3.4-5.1) mmol/L Chloride 104 (98-107) mmol/L Carbon Dioxide 24 (22-32) mmol/L BUN 32 H (7-17) mg/dL Creatinine 1.00 (0.52-1.04) mg/dL Estimated GFR 54.1 L (>60) mL/min BUN/Creatinine Ratio 32.0 H (6-22) Glucose 125 H (80-110) mg/dL Calcium 9.4 (8.4-10.2) mg/dL Magnesium (1.6-2.3) mg/dL Total Bilirubin 0.7 (0.2-1.3) mg/dL AST 35 (14-36) IU/L ALT 29 (9-52) IU/L Alkaline Phosphatase 73 (38-126) U/L Total Creatine Kinase 103 (30-135) U/L CK-MB (CK-2) 1.99 (<2.37) ng/mL CK-MB (CK-2) Rel Index 1.9 (1.5-5.0) % Troponin I < 0.012 (0.01-0.034) ng/mL Total Protein 7.4 (6.3-8.2) g/dL Albumin 4.4 (3.5-5.0) g/dL Globulin 3.0 (1.7-4.1) g/dL Albumin/Globulin Ratio 1.5 (1.0-2.8) TSH (0.47-4.68) uIU/mL 03/04/18 03/04/18 03/05/18 Range/Units 14:25 14:25 04:30 WBC 7.8 (4.5-11.0) X10^3/uL RBC 4.97 (4.0-5.2) X10^6/uL Hgb 15.7 (12.0-16.0) g/dL Hct 46.2 H (36-46) % MCV 92.9 (80-100) fL MCH 31.5 (26-34) PG MCHC 33.9 (30-36) % RDW 13.3 (11.6-14.8) % Plt Count 290 (150-400) X10^3/uL Neut % (Auto) 52.6 (50-75) % Lymph % (Auto) 34.9 (25-40) % Brooke % (Auto) 11.8 (3-14) % Eos % (Auto) 0.3 L (2-4) % Baso % (Auto) 0.4 (0-2) % Neut # (Auto) 4100 (1006-2072) /uL PT (10.1-12.7) SECONDS INR (0.9-1.3) APTT (26.4-36.2) SECONDS Sodium (137-145) mmol/L Potassium (3.4-5.1) mmol/L Chloride (98-107) mmol/L Carbon Dioxide (22-32) mmol/L BUN (7-17) mg/dL Creatinine (0.52-1.04) mg/dL Estimated GFR (>60) mL/min BUN/Creatinine Ratio (6-22) Glucose (80-110) mg/dL Calcium (8.4-10.2) mg/dL Magnesium 2.4 H (1.6-2.3) mg/dL Total Bilirubin (0.2-1.3) mg/dL AST (14-36) IU/L ALT (9-52) IU/L Alkaline Phosphatase (38-126) U/L Total Creatine Kinase (30-135) U/L CK-MB (CK-2) (<2.37) ng/mL CK-MB (CK-2) Rel Index (1.5-5.0) % Troponin I (0.01-0.034) ng/mL Total Protein (6.3-8.2) g/dL Albumin (3.5-5.0) g/dL Globulin (1.7-4.1) g/dL Albumin/Globulin Ratio (1.0-2.8) TSH 2.11 (0.47-4.68) uIU/mL 03/05/ Range/Units 04:30 WBC (4.5-11.0) X10^3/uL RBC (4.0-5.2) X10^6/uL Hgb (12.0-16.0) g/dL Hct (36-46) % MCV (80-100) fL MCH (26-34) PG MCHC (30-36) % RDW (11.6-14.8) % Plt Count (150-400) X10^3/uL Neut % (Auto) (50-75) % Lymph % (Auto) (25-40) % Brooke % (Auto) (3-14) % Eos % (Auto) (2-4) % Baso % (Auto) (0-2) % Neut # (Auto) (8453-8493) /uL PT (10.1-12.7) SECONDS INR (0.9-1.3) APTT (26.4-36.2) SECONDS Sodium 138 (137-145) mmol/L Potassium 4.0 (3.4-5.1) mmol/L Chloride 104 (98-107) mmol/L Carbon Dioxide 26 (22-32) mmol/L BUN 23 H (7-17) mg/dL Creatinine 0.80 (0.52-1.04) mg/dL Estimated GFR > 60.0 (>60) mL/min BUN/Creatinine Ratio 28.8 H (6-22) Glucose 107 (80-110) mg/dL Calcium 9.0 (8.4-10.2) mg/dL Magnesium (1.6-2.3) mg/dL Total Bilirubin 0.5 (0.2-1.3) mg/dL AST 30 (14-36) IU/L ALT 32 (9-52) IU/L Alkaline Phosphatase 71 (38-126) U/L Total Creatine Kinase (30-135) U/L CK-MB (CK-2) (<2.37) ng/mL CK-MB (CK-2) Rel Index (1.5-5.0) % Troponin I (0.01-0.034) ng/mL Total Protein 7.0 (6.3-8.2) g/dL Albumin 4.1 (3.5-5.0) g/dL Globulin 2.9 (1.7-4.1) g/dL Albumin/Globulin Ratio 1.4 (1.0-2.8) TSH (0.47-4.68) uIU/mL Imaging Data CT scan - chest: Radiologist's impression: Signed Patient: [place] Sierra MR#: [id number] : 1940 Acct:[id number] Age/Sex: 77 / F Date of Service: 03/04/18 Loc: ED Accession Number: [id number] Procedure: CT angio chest PE protocol Ordering Provider: Lm Espitia PROCEDURE: CT ANGIO CHEST PE PROTOCOL INDICATIONS: New onset AFib RVR history of breast cancer TECHNIQUE: After the administration of intravenous contrast, 2 mm thick sections acquired from the pulmonary apices to the posterior costophrenic angles. 3-dimensional maximum intensity projection (MIP) coronal and sagittal reformats were then acquired through the thorax. For radiation dose reduction, the following was used: automated exposure control, adjustment of mA and/or kV according to patient size. COMPARISON: [facility], CT, CT CARTER, 09/08/2016, 13:32. FINDINGS: Image quality: Excellent. Pulmonary arteries: Pulmonary arteries are prominent in size, and demonstrate no intraluminal filling defects to suggest central pulmonary embolism. Lungs and pleura: There is 11 mm left apical nodule (se 6 im 14). There is an ill-defined right middle lobe pulmonary nodule measuring up to 8 mm (se 6 im 48). No pleural effusions or pneumothorax. Central and peripheral airways are patent. Mediastinum: Heart size is normal, without pericardial effusion. There is a possible filling defect in the left ventricle. Right atrial enlargement. No mediastinal or hilar adenopathy. Thoracic aorta is normal in caliber and enhancement. Esophagus is normal in caliber, without hiatal hernia. Bones and chest wall: No suspicious bony lesions. Right mastectomy with implant reconstruction. Right axillary postoperative change. Abdomen: Visualized upper abdominal solid organs appear normal in the early arterial phase of enhancement. IMPRESSION: 1. No CT evidence of acute pulmonary emboli. The pulmonary arteries are prominent in size which may represent elevated pressure. 2. Possible filling defect within the left ventricle. Please note study is not performed with cardiac gating which precludes definitive evaluation of cardiac lumens. 3. Bilateral pulmonary nodules. Recommend followup as described below. Fleischner Society criteria for SOLID lung nodule followup. Nodule size (mm)Low-risk patientHigh-risk patient?4No follow-up neededFollow-up at 12 mo; if no change, no further follow-up>[id number] CT at 12 mo; if no change, no further follow-up needed.Initial follow-up CT at 6-12 mo, then 18-24 mo if no change. >6-8Initial follow-up CT at 6-12 mo, then 18-24 mo if no change. Initial follow- up CT at 3-6 mo, then 9-12 mo and 24 mo if no change. >8Follow-up CT at 3, 9, 24 mo. Or PET and/or biopsy.Same as for low-risk pts. Dictated by: Luis Fernando Cruz M.D. on 03/04/2018 at 16:08 Approved by: Luis Fernando Cruz M.D. on 03/04/2018 at 16:16 ECG Data Interpretation: EKG shows atrial fibrillation with RVR ventricular rate of 130. QRS duration of 101. QT of 330. MDM Narrative Medical decision making narrative: ekg shows Afib with RVR no prior history of AFib. She was treated with 10 mg of diltiazem iv which decreased here ventricular rate to approximately about 100. Although blood pressure systolic lead dropped to the 90s. She was not given any further diltiazem. PE chest CT was obtained and was negative for blood clot does show a incidental finding of 8 mm nodule to the left lung. CBC was unremarkable. Chem panel shows GFR of 54.1 otherwise was unremarkable. Coags were normal. Cardiac enzymes were obtained and were unremarkable. Patient's ventricular rate started to climb back up into 115-120 area. She was given 25 mg of metoprolol orally. Due to rate control patient is admitted to hospital. Discussed case with hospitalist Dr. Lynch. Who accepted patient. Patient admitted inpatient services. Patient did not have symptoms of chest pain or shortness of breath although she did state she felt different. <Faye Soler, DO - Last Filed: 03/08/18 06:33> Lab Data Attestation: I reviewed the patient's lab results. Lab Results 03/04/18 03/04/18 03/04/18 Range/Units 14:25 14:25 14:25 WBC 8.9 (4.5-11.0) X10^3/uL RBC 4.79 (4.0-5.2) X10^6/uL Hgb 15.1 (12.0-16.0) g/dL Hct 44.4 (36-46) % MCV 92.5 (80-100) fL MCH 31.4 (26-34) PG MCHC 34.0 (30-36) % RDW 13.3 (11.6-14.8) % Plt Count 289 (150-400) X10^3/uL Neut % (Auto) 64.4 (50-75) % Lymph % (Auto) 25.6 (25-40) % Brooke % (Auto) 9.8 (3-14) % Eos % (Auto) 0.0 L (2-4) % Baso % (Auto) 0.2 (0-2) % Neut # (Auto) 5700 (7005-5647) /uL PT 11.6 (10.1-12.7) SECONDS INR 1.1 (0.9-1.3) APTT 27 (26.4-36.2) SECONDS Sodium 138 (137-145) mmol/L Potassium 4.0 (3.4-5.1) mmol/L Chloride 104 (98-107) mmol/L Carbon Dioxide 24 (22-32) mmol/L BUN 32 H (7-17) mg/dL Creatinine 1.00 (0.52-1.04) mg/dL Estimated GFR 54.1 L (>60) mL/min BUN/Creatinine Ratio 32.0 H (6-22) Glucose 125 H (80-110) mg/dL Calcium 9.4 (8.4-10.2) mg/dL Magnesium (1.6-2.3) mg/dL Total Bilirubin 0.7 (0.2-1.3) mg/dL AST 35 (14-36) IU/L ALT 29 (9-52) IU/L Alkaline Phosphatase 73 (38-126) U/L Total Creatine Kinase 103 (30-135) U/L CK-MB (CK-2) 1.99 (<2.37) ng/mL CK-MB (CK-2) Rel Index 1.9 (1.5-5.0) % Troponin I < 0.012 (0.01-0.034) ng/mL Total Protein 7.4 (6.3-8.2) g/dL Albumin 4.4 (3.5-5.0) g/dL Globulin 3.0 (1.7-4.1) g/dL Albumin/Globulin Ratio 1.5 (1.0-2.8) TSH (0.47-4.68) uIU/mL 03/04/18 03/04/18 03/05/18 Range/Units 14:25 14:25 04:30 WBC 7.8 (4.5-11.0) X10^3/uL RBC 4.97 (4.0-5.2) X10^6/uL Hgb 15.7 (12.0-16.0) g/dL Hct 46.2 H (36-46) % MCV 92.9 (80-100) fL MCH 31.5 (26-34) PG MCHC 33.9 (30-36) % RDW 13.3 (11.6-14.8) % Plt Count 290 (150-400) X10^3/uL Neut % (Auto) 52.6 (50-75) % Lymph % (Auto) 34.9 (25-40) % Brooke % (Auto) 11.8 (3-14) % Eos % (Auto) 0.3 L (2-4) % Baso % (Auto) 0.4 (0-2) % Neut # (Auto) 4100 (3933-9969) /uL PT (10.1-12.7) SECONDS INR (0.9-1.3) APTT (26.4-36.2) SECONDS Sodium (137-145) mmol/L Potassium (3.4-5.1) mmol/L Chloride (98-107) mmol/L Carbon Dioxide (22-32) mmol/L BUN (7-17) mg/dL Creatinine (0.52-1.04) mg/dL Estimated GFR (>60) mL/min BUN/Creatinine Ratio (6-22) Glucose (80-110) mg/dL Calcium (8.4-10.2) mg/dL Magnesium 2.4 H (1.6-2.3) mg/dL Total Bilirubin (0.2-1.3) mg/dL AST (14-36) IU/L ALT (9-52) IU/L Alkaline Phosphatase (38-126) U/L Total Creatine Kinase (30-135) U/L CK-MB (CK-2) (<2.37) ng/mL CK-MB (CK-2) Rel Index (1.5-5.0) % Troponin I (0.01-0.034) ng/mL Total Protein (6.3-8.2) g/dL Albumin (3.5-5.0) g/dL Globulin (1.7-4.1) g/dL Albumin/Globulin Ratio (1.0-2.8) TSH 2.11 (0.47-4.68) uIU/mL 03/05/18 Range/Units 04:30 WBC (4.5-11.0) X10^3/uL RBC (4.0-5.2) X10^6/uL Hgb (12.0-16.0) g/dL Hct (36-46) % MCV (80-100) fL MCH (26-34) PG MCHC (30-36) % RDW (11.6-14.8) % Plt Count (150-400) X10^3/uL Neut % (Auto) (50-75) % Lymph % (Auto) (25-40) % Brooke % (Auto) (3-14) % Eos % (Auto) (2-4) % Baso % (Auto) (0-2) % Neut # (Auto) (0439-7170) /uL PT (10.1-12.7) SECONDS INR (0.9-1.3) APTT (26.4-36.2) SECONDS Sodium 138 (137-145) mmol/L Potassium 4.0 (3.4-5.1) mmol/L Chloride 104 (98-107) mmol/L Carbon Dioxide 26 (22-32) mmol/L BUN 23 H (7-17) mg/dL Creatinine 0.80 (0.52-1.04) mg/dL Estimated GFR > 60.0 (>60) mL/min BUN/Creatinine Ratio 28.8 H (6-22) Glucose 107 (80-110) mg/dL Calcium 9.0 (8.4-10.2) mg/dL Magnesium (1.6-2.3) mg/dL Total Bilirubin 0.5 (0.2-1.3) mg/dL AST 30 (14-36) IU/L ALT 32 (9-52) IU/L Alkaline Phosphatase 71 (38-126) U/L Total Creatine Kinase (30-135) U/L CK-MB (CK-2) (<2.37) ng/mL CK-MB (CK-2) Rel Index (1.5-5.0) % Troponin I (0.01-0.034) ng/mL Total Protein 7.0 (6.3-8.2) g/dL Albumin 4.1 (3.5-5.0) g/dL Globulin 2.9 (1.7-4.1) g/dL Albumin/Globulin Ratio 1.4 (1.0-2.8) TSH (0.47-4.68) uIU/mL ECG Data Attestation: I personally reviewed and interpreted this ECG as follows: Prior ECG tracings: not available for review Interpretation: EKG 1. atrial fibrillation rate [address] changes Q-wave noted in lead 3 some artifact noted in V4 EKG 2. Atrial fibrillation rate 134 with artifact still noted in V4 no ST changes Discharge Plan Departure Patient Disposition: Admitted As Inpatient Clinical Impression: Atrial fibrillation with RVR Discharge Date/Time: 03/04/18 18:17 Interventions: ED Discharge Assessment Last Done: 03/04/18 18:05 Admit Date/Time: 03/04/18 18:06 Admit Provider: Alma Rosa Lynch <Faye Soler DO - Last Filed: 03/08/18 06:33> Cosign ED Attending Margiature Attestation: I discussed all findings with the patient [and /spouse mother], Education has been performed regarding treatment plan, diagnosis, warning signs and symptoms and all concerns have been addressed. Verbally agree with and understood all of the above.
[2018-03-04] MEDS: METOPROLOL 25 MG TABLET PO (17:21)
--- NOTE | 2018-03-04 18:52 | DI.ECHO.S_ITS ---
[facility]---------+ [facility] +---------+ : : [address] : : : : [id number] : : : : Phone: [phone] Echocardiogram Report + + :Name: NIKI RAYMOND Study Date: 03/05/2018 Height: 71 in : :[facility] Exam Location: [facility] Weight: 170 lb : : Gender: Female BSA: 2.0 m2 : :: 1940 Age: 77 yrs BP: 119/80 mmHg: :Reason For Study: AFIB : : Performed By: Endy Raphael : :Referring: MIRNA CHEN : + + Interpretation Summary 1. Normal left ventricular size, wall thickness and systolic function with an estimated EF of 55 to 60% 2. Normal right ventricular size and systolic function. The estimated right atrial pressure is low. 3. No evidence for significant valvular pathology There is no old study available for comparison Procedure: A two-dimensional transthoracic echocardiogram with color flow and Doppler was performed. The study quality was technically difficult. There is no prior echocardiogram noted for this patient. A contrast injection of Definity was performed to improve assessment of LV function. The patient was in atrial fibrillation with rapid ventricular response during the exam with a heart rate exceeding 100 bpm. The patient had a heart rate of 95-124 beats per minute. Left Ventricle: The left ventricle is normal in size. There is normal left ventricular wall thickness. The ejection fraction is estimated to be 55-60%. There are no obvious focal wall motion abnormalities noted but poor endocardial definition reduces the sensitivity for the detection of such. Irregular rhythm makes identification of subtle wall motion abnormalities difficult. Right Ventricle: The right ventricle is normal in size and function. Atria: Both atria are normal in size. No color doppler evidence for an ASD. Mitral Valve: The mitral valve is normal in structure and function. There is no mitral regurgitation noted. Aortic Valve: The aortic valve opens well. No doppler evidence for hemodynamically significant valvular stenosis. No aortic regurgitation is present. Tricuspid Valve: The tricuspid valve leaflets are thin and pliable. There is trace tricuspid regurgitation. Pulmonary artery pressures cannot be estimated because of the lack of a measurable TR jet velocity. Pulmonic Valve: The pulmonic valve is not well visualized. Great Vessels: The aortic root is normal size. The dimensions of the ascending aorta are normal. The IVC is of normal diameter and collapses greater than 50% with a sniff. This suggests a low right atrial pressure of 3 mm Hg. Pericardium/ Pleura There is no pericardial effusion. There is no pleural effusion. MMode/2D Measurements & Calculations LVIDd: 3.7 cm Ao root diam: 2.9 cm LVIDs: 2.3 cm Aortic Jxn: 2.6 cm FS: 38.9 % asc Aorta Diam: 3.4 cm EPSS: 0.21 cm IVSd: 0.67 cm LVPWd: 0.93 cm LV lemos. diameter/BSA (cm/m^2): 1.9 LV sys. diameter/BSA (cm/m^2): 1.2 LA dimension: 2.9 cm RA long axis: 4.7 cm LA A2 area: 15.3 cm2 RA area: 13.7 cm2 LA A4 area: 15.1 cm2 RA vol: 33.8 ml LA length (vol): 5.4 cm RA : 17.2 ml/m2 LA vol: 36.5 ml IVC diam: 1.6 cm LA vol index: 18.5 ml/m2 Doppler Measurements & Calculations Ao V2 max: 78.3 cm/sec MV E max ramírez: 75.3 cm/sec Ao V2 mean: 62.5 cm/sec MV A max ramírez: 1.4 cm/sec Ao max P.5 mmHg MV E/A: 55.0 Ao mean P.6 mmHg Med Peak E' Ramírez: 7.5 cm/sec Ao V2 VTI: 14.9 cm E/E' med: 10.1 MV dec time: 0.11 sec Reading Physician:KELSIE
[2018-03-04] MEDS: SODIUM CHLORIDE 0.9% 500 ML IV (19:14)
[2018-03-04] MEDS: APIXABAN 5 MG TABLET PO (20:15)
--- NOTE | 2018-03-04 20:53 | PM.HP.1 ---
History of Present Illness Date Patient Seen: 03/04/18 Time Patient Seen: 17:56 Chief complaint: SHORTNESS OF BREATH,SHAKY Narrative: Patient is a 77-year-old woman with a history of hypertension, hyperlipidemia and breast cancer s/p mastectomy and 3 doses of radiation who presented to the ED after several hours of waxing and waning light-headedness, perceived anxiety and pounding heart. She woke up at 4AM this morning and felt sweaty and agitated with a pounding heart. She then got up around 7AM and felt light-headed on standing. She felt as though she might pass out, although she did not. It helped to put her head down toward her chest. She continued to have some feelings of anxiety, lightheadedness, and she initially attributed this to nervousness about going out on her partner?s boat, as she has had intermittent episodes of pounding heart which she attributed to anxiety during boating before. After the boat outing, the feelings of pounding or movement inside her chest and shortness of breath were still unresolved; she thought she may be having an anxiety or panic attack so she came to the ER. She has had a few similar but milder episodes in the past, which she attributed to anxiety. She has not had chest pain. She has not had tremor or vision changes and has no known history of thyroid disease. No unilateral leg swelling or pain. No known history of A fib or structural heart disease. She has a history of hypertension managed with Lisinopril and hydrochlorothiazide, and blood pressure is normally in the 110?s. She also takes aspirin and simvastatin. She does experience some light-headedness typically. She has no history of clot or stroke. She has a history of breast cancer which was treated 2 years ago. She had a lumpectomy and underwent 3 days of radiation, but then MRI showed the cancer had spread farther than initially thought, so she had a right mastectomy and reconstruction and did not undergo further radiation. She did not have any chemotherapy. In the ED, she was found to have A fib with RVR, heart rate in the 130?s-140?s which was difficult to control with diltiazem and metoprolol. 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) Essential hypertension (Chronic) Mixed hyperlipidemia (Chronic) Back pain (Chronic) Hyperglycemia (Chronic 06/27/11) Knee osteoarthritis (Acute) Surgical History H/O right mastectomy (Inactive ~10/2017) History of hip replacement (Acute) History of lumpectomy (Inactive 08/19/16) S/P carpal tunnel release (Inactive ~01/06/18) Family & Social History Social History: household members significant other Prior Living Arrangements House Safety & Behavioral: Feels Safe in Current Yes Environment Been Physically Hurt or No Threatened By a Person Suicidal Ideation Description None Tobacco & Substance use: Smoking Status Former smoker alcohol intake current alcohol intake frequency 0-2 drinks per day Substance Use Type does not use Meds Home Medications Medication Instructions Recorded Confirmed Type NUTRITIONAL SUPPLEMENT (CRANBERRY) 1 cap PO Q DAY #0 06/27/11 03/04/18 History Vitamin D3 2,000 iu PO Q DAY #0 06/27/11 03/04/18 History polyethylene glycol 3350 [Miralax] 17 gm PO Q DAY #0 01/28/12 03/04/18 History aspirin 81 mg PO QDAY #0 10/22/16 03/04/18 History lisinopril 5 mg PO Q DAY #365 tab 05/01/17 03/04/18 Rx estradiol [Vagifem] 10 mcg VG SEE INSTRUCTIONS #90 tab 11/25/17 03/04/18 Rx hydrochlorothiazide 25 mg tablet 25 mg PO QDAY #365 tab 01/07/18 03/04/18 Rx simvastatin 40 mg tablet 40 mg PO Q DAY #365 tab 01/07/18 03/04/18 Rx pramipexole [Mirapex] 0.25 mg PO HS 03/04/18 03/04/18 History Allergies Allergy/AdvReac Type Severity Reaction Status Date / Time niacin [NIACIN] AdvReac Unknown itching Verified 01/07/18 11:39 Review of Systems Review of Systems All systems reviewed & are unremarkable except as noted in HPI and below Exam Vital Signs (past 8 hours): - 03/04/18 14:19 03/04/18 14:25 03/04/18 14:41 Temperature 97.8 F Pulse Rate 137 H 143 H 124 H Respiratory Rate 22 18 Blood Pressure 118/80 117/80 Blood Pressure [Right Arm] 118/80 Pulse Oximetry 97 100 03/04/18 15:41 03/04/18 16:00 03/04/18 17:07 Temperature Pulse Rate 104 H 102 H 106 H Respiratory Rate 15 15 13 Blood Pressure Blood Pressure [Right Arm] 123/81 H 109/61 120/76 Pulse Oximetry 100 95 99 03/04/18 18:05 03/04/18 19:00 03/04/18 19:10 Temperature 98.8 F Pulse Rate 113 H 101 H 94 H Respiratory Rate 24 19 11 L Blood Pressure 120/88 H 117/84 H 143/79 H Blood Pressure [Right Arm] Pulse Oximetry 100 97 99 03/04/18 20:00 Temperature Pulse Rate 93 H Respiratory Rate 10 L Blood Pressure 127/87 H Blood Pressure [Right Arm] Pulse Oximetry 97 Oxygen Delivery Method Room Air Narrative Exam Narrative: GEN: Well developed, well nourished, no acute distress. HEENT: Normocephalic. PERRL, EOMI. No proptosis. Vision and hearing grossly intact. Neck supple, nontender without masses or thyromegaly. CARDIAC: Fast rate, Irregular rhythm. No murmurs, gallops or rubs. No carotid bruit. No cyanosis or pallor. EXTREMITY: No peripheral edema. Dorsalis pedis pulses intact bilaterally. Extremities warm and well perfused. No unilateral leg swelling, redness or pain. LUNGS: Breathing comfortably. Clear to auscultation bilaterally. No wheezes. ABDOMEN: Soft, nontender, nondistended. No guarding or rebound. No masses. NEURO: No tremor. PSYCH: Alert and oriented, responds appropriately to questions. Normal affect. Objective Labs Result Diagrams: 03/04/18 14:25 03/04/18 14:25 Labs: Laboratory Results - last 24 hr 03/04/18 03/04/18 03/04/18 14:25 14:25 14:25 WBC 8.9 RBC 4.79 Hgb 15.1 Hct 44.4 MCV 92.5 MCH 31.4 MCHC 34.0 RDW 13.3 Plt Count 289 Neut % (Auto) 64.4 Lymph % (Auto) 25.6 [place] % (Auto) 9.8 Eos % (Auto) 0.0 L Baso % (Auto) 0.2 Neut # (Auto) 5700 PT 11.6 INR 1.1 APTT 27 Sodium 138 Potassium 4.0 Chloride 104 Carbon Dioxide 24 BUN 32 H Creatinine 1.00 Estimated GFR 54.1 L BUN/Creatinine Ratio 32.0 H Glucose 125 H Calcium 9.4 Total Bilirubin 0.7 AST 35 ALT 29 Alkaline Phosphatase 73 Total Creatine Kinase 103 CK-MB (CK-2) 1.99 CK-MB (CK-2) Rel Index 1.9 Troponin I < 0.012 Total Protein 7.4 Albumin 4.4 Globulin 3.0 Albumin/Globulin Ratio 1.5 Assessment & Plan Plan: Assessment/Plan Narrative: 77 yo female with new onset atrial fibrillation. Seems likely that she has these episodes in the past but attributed them to anxiety. Possible etiologies include mild dehydration with elevated BUN/creatinine, thryoid disorder, electrolyte disturbance, valvular abnormality. Discussed warfarin vs NOACs with patient. 1. Will replete fluids with 500 cc bolus. 2. Diltiazem drip since she responded well to this in the ED. Titrate to resting heart rate <100. 3. Check Magnesium and thyroid. Na, K, Ca, Cl were normal. 4. Echocardiogram tomorrow. 5. Apixiban for anticoagulation. Hypertension. Will monitor blood pressure and add back her hctz and lisinopril as needed as we add rate control. Restless legs. Continue mirapex. DVT prophylaxis: apixiban CODE STATUS: full code DISPOSITION: home once rate is controlled adequately. Patient is at risk of decompensation given new onset atrial fibrillation and requires inpatient monitoring and will likely require 2 midnights of care. Quality VTE Deep Vein Thrombosis/Pulmonary Embolism Present on Admission: No
[2018-03-04 21:00] LABS: Magnesium 2.4 mg/dL (1.6-2.3)
--- NOTE | 2018-03-04 21:09 | PC.NURSE ---
1820 - Pt to room from ER. Able to stand and walk to bed. Denies lightheadedness or chest pain. HR 110-120 with activity. decreasing to 90's at rest. Educated pt to a-fib, treatment plan, and oriented to room and routine. 500cc bolus given as ordered. PT with hr in the 90's at rest. Diltiazem gtt not yet initated. Up to bsc, again, denies lightheadedness, denies chest pain. Snack provided. Call light in reach.
[2018-03-04 21:32] LABS: TSH w/ Reflex to FT4 2.11 uIU/mL (0.47-4.68)
[2018-03-04] MEDS: PRAMIPEXOLE 0.25 MG TABLET PO ×2 (21:58→22:01)
[2018-03-05] VITALS (17 sets, daily range): BP systolic 110–137; BP diastolic 55–95; PULSE 80–138; RESP 10–27; TEMP 36–36.6; O2SAT 95–105
[2018-03-05 05:09] LABS: Add Manual Diff / Slide Review NO; Basophils Percent Auto 0.4 % (0-2); Eosinophils Percent Auto 0.3 % (2-4); Hematocrit 46.2 % (36-46); Hemoglobin 15.7 g/dL (12.0-16.0); Lymphocytes Percent Auto 34.9 % (25-40); Mean Corpuscular HGB Conc 33.9 % (30-36); Mean Corpuscular Hemoglobin 31.5 PG (26-34); Mean Corpuscular Volume 92.9 fL (80-100); Monocytes Percent Auto 11.8 % (3-14); Neutrophils Absolute Auto 4100 /uL (3000-5900); Neutrophils Percent Auto 52.6 % (50-75); Platelet Count 290 X10^3/uL (150-400); Red Blood Cell Count 4.97 X10^6/uL (4.0-5.2); Red Cell Distribution Width 13.3 % (11.6-14.8); White Blood Cell Count 7.8 X10^3/uL (4.5-11.0)
[2018-03-05 05:19] LABS: Alanine Aminotransferase 32 IU/L (9-52); Albumin 4.1 g/dL (3.5-5.0); Albumin Globulin Ratio 1.4 (1.0-2.8); Alkaline Phosphatase 71 U/L (38-126); Aspartate Aminotransferase 30 IU/L (14-36); BUN Creatinine Ratio 28.8 (6-22); Bilirubin Total 0.5 mg/dL (0.2-1.3); Blood Urea Nitrogen 23 mg/dL (7-17); Carbon Dioxide 26 mmol/L (22-32); Chloride 104 mmol/L (98-107); Estimated Glomerular Filt Rate > 60.0 mL/min (>60); Globulin 2.9 g/dL (1.7-4.1); Glucose 107 mg/dL (80-110); HEMOLYSIS 17 (0-50); Sodium 138 mmol/L (137-145)
--- NOTE | 2018-03-05 07:43 | PM.PN.1 ---
Subjective Date Patient Seen: 03/05/18 Time Patient Seen: 07:43 Interval history: Please see discharge summary for this days details. Exam Vital Signs (past 8 hours): - 03/05/18 00:03 03/05/18 01:00 03/05/18 02:00 Temperature 96.8 F L Pulse Rate 82 96 H 90 Respiratory Rate 18 27 H 12 Blood Pressure 121/68 H 127/61 H 113/57 L Pulse Oximetry 96 96 96 03/05/18 03:00 03/05/18 04:00 03/05/18 05:00 Temperature 98 F Pulse Rate 92 H 90 92 H Respiratory Rate 16 15 15 Blood Pressure 110/68 119/77 117/72 Pulse Oximetry 96 96 96 03/05/18 06:00 Temperature Pulse Rate 87 Respiratory Rate 10 L Blood Pressure 123/84 H Pulse Oximetry 96 Oxygen Delivery Method Room Air Oxygen Flow Rate 0 Objective Labs Result Diagrams: 03/05/18 04:30 03/05/18 04:30 Labs: Laboratory Results - last 24 hr 03/04/18 03/04/18 03/04/18 14:25 14:25 14:25 WBC 8.9 RBC 4.79 Hgb 15.1 Hct 44.4 MCV 92.5 MCH 31.4 MCHC 34.0 RDW 13.3 Plt Count 289 Neut % (Auto) 64.4 Lymph % (Auto) 25.6 [place] % (Auto) 9.8 Eos % (Auto) 0.0 L Baso % (Auto) 0.2 Neut # (Auto) 5700 PT 11.6 INR 1.1 APTT 27 Sodium 138 Potassium 4.0 Chloride 104 Carbon Dioxide 24 BUN 32 H Creatinine 1.00 Estimated GFR 54.1 L BUN/Creatinine Ratio 32.0 H Glucose 125 H Calcium 9.4 Magnesium Total Bilirubin 0.7 AST 35 ALT 29 Alkaline Phosphatase 73 Total Creatine Kinase 103 CK-MB (CK-2) 1.99 CK-MB (CK-2) Rel Index 1.9 Troponin I < 0.012 Total Protein 7.4 Albumin 4.4 Globulin 3.0 Albumin/Globulin Ratio 1.5 TSH 03/04/18 03/04/18 03/05/18 14:25 14:25 04:30 WBC 7.8 RBC 4.97 Hgb 15.7 Hct 46.2 H MCV 92.9 MCH 31.5 MCHC 33.9 RDW 13.3 Plt Count 290 Neut % (Auto) 52.6 Lymph % (Auto) 34.9 [place] % (Auto) 11.8 Eos % (Auto) 0.3 L Baso % (Auto) 0.4 Neut # (Auto) 4100 PT INR APTT Sodium Potassium Chloride Carbon Dioxide BUN Creatinine Estimated GFR BUN/Creatinine Ratio Glucose Calcium Magnesium 2.4 H Total Bilirubin AST ALT Alkaline Phosphatase Total Creatine Kinase CK-MB (CK-2) CK-MB (CK-2) Rel Index Troponin I Total Protein Albumin Globulin Albumin/Globulin Ratio TSH 2.11 03/05/18 04:30 WBC RBC Hgb Hct MCV MCH MCHC RDW Plt Count Neut % (Auto) Lymph % (Auto) [place] % (Auto) Eos % (Auto) Baso % (Auto) Neut # (Auto) PT INR APTT Sodium 138 Potassium 4.0 Chloride 104 Carbon Dioxide 26 BUN 23 H Creatinine 0.80 Estimated GFR > 60.0 BUN/Creatinine Ratio 28.8 H Glucose 107 Calcium 9.0 Magnesium Total Bilirubin 0.5 AST 30 ALT 32 Alkaline Phosphatase 71 Total Creatine Kinase CK-MB (CK-2) CK-MB (CK-2) Rel Index Troponin I Total Protein 7.0 Albumin 4.1 Globulin 2.9 Albumin/Globulin Ratio 1.4 TSH Assessment & Plan Plan: Assessment/Plan Narrative: 77 yo female with new onset atrial fibrillation. Seems likely that she has these episodes in the past but attributed them to anxiety. Possible etiologies include mild dehydration with elevated BUN/creatinine, thryoid disorder, electrolyte disturbance, valvular abnormality. Discussed warfarin vs NOACs with patient. 1. EKG 2. Diltiazem 30 mg q 6 hours 3. Magnesium, thyroid, Na, K, Ca, and Cl were normal. 4. Echocardiogram today. 5. Apixiban for anticoagulation. Hypertension. Will monitor blood pressure and add back her hctz and lisinopril as needed as we add rate control. Restless legs. Continue mirapex. DVT prophylaxis: apixiban CODE STATUS: full code DISPOSITION: home once rate is controlled adequately. Patient is at risk of decompensation given new onset atrial fibrillation and requires inpatient monitoring and will likely require 2 midnights of care. Quality VTE Deep Vein Thrombosis/Pulmonary Embolism Present on Admission: No
[2018-03-05] MEDS: dilTIAZem 30 MG TABLET PO ×3 (09:17→14:00)
[2018-03-05] MEDS: APIXABAN 5 MG TABLET PO ×2 (09:18→18:30)
--- NOTE | 2018-03-05 09:30 | CM.MNRNOTE ---
Dayshift Note: Pt received laying in bed, HR 90s at rest. Dr. Lynch to bedside, HR up to 120s, a-fib RVR, while interacting with physician. Pt with echo at bedside, EKG done. HR up to 130s at times. Pt given first dose of oral diltiazem, 30 mg PO. HR remains in 110s-130. Pt denies dizziness, SOB or discomfort of any kind. Tolerating meals. Will continue to monitor, notify MD with changes.
--- NOTE | 2018-03-05 12:11 | CM.DANOTE ---
DCP: Case received, EMR reviewed and met with patient. Introduced self and role. DCP template completed with information currently available. Patient is a 77 year old female who admitted yesterday evening to the care of the hospitalist team. PCP: Dr. Gutierrez. Payer confirmed Medicare/[employer] Patient came in with symptoms of weakness and shortness of breath. Is inpatient status. Will be having an echo today. P: Patient plans to go home, has been independent. DCP will continue to plan and assess Sara Trimble RN/[employer] Supervisor
--- NOTE | 2018-03-05 14:45 | PC.NURSE ---
Day shift: On unit at approx 1445. Oriented to room. Call light in reach. Pt told that MD orders for bedrest and she can use BSC for now. High fall risk. Meds in drawer from ICU. Pt A&Ox3.
--- NOTE | 2018-03-05 17:58 | PM.DS.1 ---
History of Present Illness Date Patient Seen: 03/05/18 Time Patient Seen: 17:58 Chief complaint: SHORTNESS OF BREATH,SHAKY Narrative: Patient is a 77-year-old woman with a history of hypertension, hyperlipidemia and breast cancer s/p mastectomy and 3 doses of radiation who presented to the ED after several hours of waxing and waning light-headedness, perceived anxiety and pounding heart. She woke up at 4AM this morning and felt sweaty and agitated with a pounding heart. She then got up around 7AM and felt light-headed on standing. She felt as though she might pass out, although she did not. It helped to put her head down toward her chest. She continued to have some feelings of anxiety, lightheadedness, and she initially attributed this to nervousness about going out on her partner?s boat, as she has had intermittent episodes of pounding heart which she attributed to anxiety during boating before. After the boat outing, the feelings of pounding or movement inside her chest and shortness of breath were still unresolved; she thought she may be having an anxiety or panic attack so she came to the ER. She has had a few similar but milder episodes in the past, which she attributed to anxiety. She has not had chest pain. She has not had tremor or vision changes and has no known history of thyroid disease. No unilateral leg swelling or pain. No known history of A fib or structural heart disease. She has a history of hypertension managed with Lisinopril and hydrochlorothiazide, and blood pressure is normally in the 110?s. She also takes aspirin and simvastatin. She does experience some light-headedness typically. She has no history of clot or stroke. She has a history of breast cancer which was treated 2 years ago. She had a lumpectomy and underwent 3 days of radiation, but then MRI showed the cancer had spread farther than initially thought, so she had a right mastectomy and reconstruction and did not undergo further radiation. She did not have any chemotherapy. In the ED, she was found to have A fib with RVR, heart rate in the 130?s-140?s which was difficult to control with diltiazem and metoprolol. Discharge Providers Date of admission: 03/04/18 18:06 Primary care physician: Mike Gutierrez MD Discharge provider: Alma Rosa Lynch DO Summary Discharge Diagnosis: Atrial fibrillation with rapid ventricular response Hypertension Hyperlipidemia Restless Legs Pulmonary nodule Hospital Course: 77 yo female with new onset atrial fibrillation. Seems likely that she has these episodes in the past but attributed them to anxiety. Possible etiologies include mild dehydration with elevated BUN/creatinine, thryoid disorder, electrolyte disturbance, valvular abnormality, neuroendocrine. No valvular disease on echocardiogram. Rate control on oral diltiazem. Anticoagulation with apixiban. Normal electrolytes and thyroid. Hypertension. Blood pressures were controlled without her home hctz and lisinopril until just before discharge. She was told to stop this since we added the diltiazem. Will have her monitor her blood pressures at home and restart if necessary. She should follow up with Dr. Gutierrez, her PCP in the next week. Pulmonary nodules will require surveilance with repeat CT in 3 months. Patient is wondering if they could compare this to her breast MRI to see if these nodules were present then (10/2016). Will check with radiology. They did compare the CT scan to a prior CT in 08/2016. Restless legs. Continue mirapex. DVT prophylaxis: apixiban CODE STATUS: full code Status at Discharge Functional status at discharge: independent ambulation Overall status at discharge: patient is progressing back to baseline Time Spent with Patient Greater than 30 minutes Exam Vital Signs (past 8 hours): - 03/05/18 10:00 03/05/18 11:00 03/05/18 12:49 Temperature 97.8 F Pulse Rate 100 H 138 H Respiratory Rate 10 L 14 Blood Pressure 124/66 H 110/55 L 114/57 L Pulse Oximetry 96 03/05/18 14:00 03/05/18 16:01 Temperature 97.8 F Pulse Rate 103 H 80 Respiratory Rate 16 Blood Pressure 114/57 L 118/71 Pulse Oximetry 96 Oxygen Delivery Method Room Air Oxygen Flow Rate 0 Narrative Exam Narrative: GEN: Well developed, well nourished, no acute distress. HEENT: Normocephalic. PERRL, EOMI. No proptosis. Vision and hearing grossly intact. Neck supple, nontender without masses or thyromegaly. CARDIAC: Normal rate, Irregular rhythm. No murmurs, gallops or rubs. No carotid bruit. No cyanosis or pallor. EXTREMITY: No peripheral edema. Dorsalis pedis pulses intact bilaterally. Extremities warm and well perfused. No unilateral leg swelling, redness or pain. LUNGS: Breathing comfortably. Clear to auscultation bilaterally. No wheezes. ABDOMEN: Soft, nontender, nondistended. No guarding or rebound. No masses. NEURO: No tremor. PSYCH: Alert and oriented, responds appropriately to questions. Normal affect. Objective Imaging echocardiogram: Radiologist's impression: Interpretation Summary 1. Normal left ventricular size, wall thickness and systolic function with an estimated EF of 55 to 60% 2. Normal right ventricular size and systolic function. The estimated right atrial pressure is low. 3. No evidence for significant valvular pathology There is no old study available for comparison ECG: Atrial fibrillation with rapid ventricular response. CT scan - chest: Radiologist's impression: IMPRESSION: 1. No CT evidence of acute pulmonary emboli. The pulmonary arteries are prominent in size which may represent elevated pressure. 2. Possible filling defect within the left ventricle. Please note study is not performed with cardiac gating which precludes definitive evaluation of cardiac lumens. (subsequent echocardiogram did not note this defect) 3. Bilateral pulmonary nodules. Recommend followup as described below. Lungs and pleura: There is 11 mm left apical nodule (se 6 im 14). There is an ill-defined right middle lobe pulmonary nodule measuring up to 8 mm (se 6 im 48). No pleural effusions or pneumothorax. Central and peripheral airways are patent. Labs Result Diagrams: 03/05/18 04:30 03/05/18 04:30 Labs: Laboratory Results - last 24 hr 03/04/18 03/04/18 03/05/18 14:25 14:25 04:30 WBC 7.8 RBC 4.97 Hgb 15.7 Hct 46.2 H MCV 92.9 MCH 31.5 MCHC 33.9 RDW 13.3 Plt Count 290 Neut % (Auto) 52.6 Lymph % (Auto) 34.9 [place] % (Auto) 11.8 Eos % (Auto) 0.3 L Baso % (Auto) 0.4 Neut # (Auto) 4100 Sodium Potassium Chloride Carbon Dioxide BUN Creatinine Estimated GFR BUN/Creatinine Ratio Glucose Calcium Magnesium 2.4 H Total Bilirubin AST ALT Alkaline Phosphatase Total Protein Albumin Globulin Albumin/Globulin Ratio TSH 2.11 03/05/18 04:30 WBC RBC Hgb Hct MCV MCH MCHC RDW Plt Count Neut % (Auto) Lymph % (Auto) [place] % (Auto) Eos % (Auto) Baso % (Auto) Neut # (Auto) Sodium 138 Potassium 4.0 Chloride 104 Carbon Dioxide 26 BUN 23 H Creatinine 0.80 Estimated GFR > 60.0 BUN/Creatinine Ratio 28.8 H Glucose 107 Calcium 9.0 Magnesium Total Bilirubin 0.5 AST 30 ALT 32 Alkaline Phosphatase 71 Total Protein 7.0 Albumin 4.1 Globulin 2.9 Albumin/Globulin Ratio 1.4 TSH Discharge Plan Discharge Plan Patient Disposition: Home, Self-Care Provider Discharge Instructions Diet: Diet as Tolerated Activity: Avoid strenuous activity until follow up. Discharge Data Primary Care Provider: Mike Gutierrez Attending Provider: Alma Rosa Lynch Admit Date/Time: 03/04/18 18:06 Discharges patient from system. Discharge Date/Time: 03/05/18 19:10 Quality VTE Deep Vein Thrombosis/Pulmonary Embolism Present on Admission: No
[2018-03-05] MEDS: dilTIAZem CD 240 MG CAP PO (18:50)
== END 2018-03-05 19:10 | disposition home or self-care (01) | DRG 310 ==
LOC: ED 17:57 → ICU 03-05 07:44 → AC 03-05 18:00 → ICU 03-06 18:02
PROVIDERS: Emergency Medicine; Admitting Provider Family Medicine; Emergency Provider Nurse Practitioner Family; Family Provider Internal Medicine; PCP Internal Medicine; Visit Provider Family Medicine
DX: I48.91 Unspecified atrial fibrillation (principal); I10 Essential (primary) hypertension; E78.5 Hyperlipidemia, unspecified; G25.81 Restless legs syndrome; Z87.891 Personal history of nicotine dependence; R91.8 Other nonspecific abnormal finding of lung field
CPT/HCPCS: 36415; 36591; 36592; 71045; 71275; 80053; 82550; 82553; 83735; 84443; 84484; 85025; 85610; 85730; 93005; 93041; 93306; 96374; 99223; 99239; 99283; 99285; Q9957; Q9967

== ENCOUNTER → 2018-03-31 07:57 | Outpatient (CLI) | payer MEDICARE, OTHER, SELFPAY ==
[2018-03-04 18:31] VITALS: BMI 23.7
--- NOTE | 2018-03-31 09:23 | PM.TREADMILL ---
Cardiac Stress Test Report Referral & Results Date Patient Seen: 03/31/18 Time Patient Seen: 09:23 Requesting provider: Mike Gutierrez Indication: Atrial fibrillation Rest ECG: Unremarkable Procedure Note: Today following both written and verbal informed consent the patient was exercised according to a standard Bebeto protocol patient went for a total of 5 min 28 sec achieving a maximum heart rate of 138 maximum systolic blood pressure of 178. This is approximately 7.0 METS. Exercise was terminated at this point because of targets having been reached. Patient was also given Cardiolite through a previously started Hep-Lock IV by the nuclear technician approximately 1 minute prior to the cessation of exercise. There are no ST segment changes Normal heart rate and blood pressure response Functional aerobic impairment rated 0 the active scale No dysrhythmia noted, although lots of motion artifact may have obscured minor dysrhythmias such as PVCs or PACs. Impression: No evidence of ischemia. Excellent exercise capacity. Perfusion imaging will be reported separately Please note: Actual ECG tracings can be found in the PACS system.
--- NOTE | 2018-04-01 13:59 | DI.NM.S_ITS ---
DATE OF SERVICE: 03/31/2018 PROCEDURE: Exercise perfusion study. INDICATIONS: Atrial fibrillation with underlying hypertension, hyperlipidemia. RADIOPHARMACEUTICAL: 25.3 mCi technetium-99m Myoview IV was injected at stress and 26.4 mCi technetium-99m Myoview IV was injected at rest. CARDIAC STRESS: Patient underwent exercise perfusion study under the supervision of an attending staff. She walked on Bebeto protocol for 5 minutes 28 seconds, achieved 95% of target heart rate with normal blood pressure response. Baseline rhythm was sinus with low-voltage complexes in chest leads and poor R-wave progression, QS complexes in V1 to V2. There was low-voltage complexes in limb leads as well. Baseline heart rate was about 50. During stress, there was significant artifacts seen. There was intermittent PACs, PVCs without any ventricular tachycardia. In the immediate recovery, it was about 1-[address] depression in inferior leads and some nonspecific changes in anterior leads. RAW DATA: The right breast implant seen. There is increased diaphragmatic. GATED STUDY: Stress LV ejection fraction 82%. I don't see any obvious wall motion abnormalities. Resting end-diastolic volume is 71 mL. No transient ischemic dilatation. TID ratio is 0.93, which is within normal limits. Lung/heart ratio is 0.29, which is within normal limits. MYOCARDIAL PERFUSION SCAN: Stress supine, resting supine images, and stress prone images were compared to each other. It appears to be that patient has normal myocardial perfusion. CONCLUSION: This is a normal myocardial perfusion study. Overall, left ventricular (LV) function is preserved No transient ischemic dilatation. As far as perfusion scan is concerned, this is a low-risk myocardial perfusion scan. [place] - SHANNAN/benny/ doc#: [id number]/job#: [id number] dd: 04/01/2018 13:16:00 dt: 04/01/2018 13:49:00 DICTATING MD/COPIES TO: Nitza Barroso MD COPIES MNE: MATY
== END ==
PROVIDERS: Family Provider Internal Medicine; PCP Internal Medicine; Visit Provider Internal Medicine
DX: I48.91 Unspecified atrial fibrillation (principal); I10 Essential (primary) hypertension; E78.5 Hyperlipidemia, unspecified
CPT/HCPCS: 78452; 93016; 93017; 93018; A9502

== ENCOUNTER 2018-05-06 01:20 | Emergency (ER) | payer MEDICARE, OTHER, SELFPAY ==
[2018-03-04 18:31] VITALS: BMI 23.7
--- NOTE | 2018-05-06 01:22 | ED.ARRPALP ---
HPI - Arrhythmia/Palpitations General Chief Complaint: Arrhythmia/Palpitations Stated Complaint: thinks she is in afib Time Seen by Provider: 05/06/18 01:21 Source: patient Mode of arrival: ambulatory Limitations: no limitations History of Present Illness HPI narrative: 77-year-old female with a known history of atrial fibrillation. She was seen here in the emergency department back in February for 1st episode of this. She was sent home on apixaban and also diltiazem. She states that during her hospital visit here she had an echocardiogram which did not show any abnormalities. She states that she had a stress test performed shortly after she was discharged and this was also unremarkable. She stated that she converted back to sinus rhythm approximately 1 week after being discharged to the hospital. She states that she has not had any episodes since then. Has been taking her medications. She states that approximately 9 o'clock last evening she had which she felt like where the same symptoms she had when she was here with AFib the last time. She states she tried to go to sleep however was woken from sleep. No chest pain but feeling like her heart was pounding. Did have some shortness of breath and unsteadiness at the time. Related Data Home Medications Medication Instructions Recorded Confirmed NUTRITIONAL SUPPLEMENT (CRANBERRY) 1 cap PO Q DAY #0 06/27/11 03/16/18 Vitamin D3 2,000 iu PO Q DAY #0 06/27/11 03/16/18 polyethylene glycol 3350 [Miralax] 17 gm PO Q DAY #0 01/28/12 03/16/18 pramipexole [Mirapex] 0.25 mg PO HS 03/04/18 03/16/18 gabapentin 300 mg capsule 300 mg PO DAILY 03/16/18 lisinopril 5 mg tablet 5 mg PO DAILY 03/16/18 03/16/18 Previous Rx's Medication Instructions Recorded estradiol [Vagifem] 10 mcg VG SEE INSTRUCTIONS #90 tab 11/25/17 apixaban 5 mg tablet 5 mg PO BID #180 tab 03/16/18 atorvastatin 20 mg tablet 20 mg PO DAILY #90 tab 03/16/18 diltiazem CD 240 mg 240 mg PO DAILY #90 cap 03/16/18 capsule,extended release 24 hr hydrochlorothiazide 25 mg tablet 25 mg PO DAILY #90 tab 05/04/18 Allergies Allergy/AdvReac Type Severity Reaction Status Date / Time niacin [NIACIN] AdvReac Unknown itching Verified 03/16/18 15:17 Review of Systems Constitutional Denies fatigue, Denies fever(s) and Denies headache(s) ENT Ears, Nose, Mouth, and Throat: Denies vertigo, Denies dizziness, Denies headache(s) and Reports disequilibrium Cardiovascular Denies chest pain, Denies syncope, Reports irregular heart rhythm, Reports palpitations and Reports dyspnea Respiratory Reports dyspnea Gastrointestinal Gastrointestinal: Denies abdominal pain, Denies diarrhea and Denies nausea Genitourinary Denies dysuria Musculoskeletal Denies myalgias, Denies arthralgias, Denies numbness and Denies tingling Integumentary/Breasts Denies rash Neurologic Denies vertigo, Denies dizziness, Denies syncope, Denies headache(s), Denies lack of coordination, Denies memory loss, Denies numbness, Denies tingling and Reports disequilibrium Psychiatric Denies memory loss Endocrine Denies fatigue and Reports palpitations [facility] Medical History Neoplasm of right breast, 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) Essential hypertension (Chronic 1999) Mixed hyperlipidemia (Chronic 1999) Back pain (Chronic) Hyperglycemia (Chronic 06/27/11) Arthritis of finger (Chronic 2013) Cataract (Chronic 2012) Frequent UTI (Chronic 1993) Hip arthritis (Chronic 2013) Knee osteoarthritis (Chronic) Plantar fasciitis (Chronic 2003) Retinal tear (Chronic 2007) Chicken pox (Resolved) Measles (Resolved) Mumps (Resolved) Positive PPD (Resolved 1961) Surgical History H/O right mastectomy (Resolved ~10/2017) History of lumpectomy (Resolved 08/19/16) S/P carpal tunnel release (Resolved ~01/06/18) Family History Brother No problems noted. Father No problems noted. Mother Heart disease Exam Initial Vital Signs Initial Vital Signs: Vital Signs Temperature 98.2 F 05/06/18 01:31 Pulse Rate 72 05/06/18 01:31 Respiratory Rate 20 05/06/18 01:31 Blood Pressure 172/74 H 05/06/18 01:31 Pulse Oximetry 98 05/06/18 01:31 Const General: cooperative, healthy appearing, comfortable, well developed, well groomed and No acute distress Orientation: alert, awake and oriented x3 HENMT Head: normal to inspection and normocephalic Chest Chest: normal inspection of the chest Resp Effort & Inspection: normal respiratory effort Auscultation: clear to auscultation bilaterally Cardio Rate: regular rate Rhythm: regular rhythm Heart Sounds: no murmurs Pulses: radial pulses present GI Inspection: non-distended Palpation: soft Skin Lesions: no lesions Rashes: no rashes Neuro General: alert, awake and oriented x3 Cognition: normal cognition Speech: speech normal Gait: normal gait Motor: muscle tone normal throughout Sensory Exam: no sensory deficits noted Extrem General: normal to inspection, full ROM, capillary refill normal and No edema Psych Appearance: grossly normal and well kempt Course Orders Ordered: ED Orders 05/06/18 01:22 EKG-12 Lead Stat Vital Signs - 8 hr 05/06/18 01:31 05/06/18 01:53 05/06/18 02:05 Temperature 98.2 F Pulse Rate 72 62 65 Respiratory Rate 20 18 16 Blood Pressure 172/74 H Blood Pressure [Right Arm] 140/67 115/68 Pulse Oximetry 98 97 97 MDM - Arrhythmia/Palpitations Medical Records Attestation: I reviewed the patient's medical records. ECG Data Attestation: I personally reviewed and interpreted this ECG as follows: Prior ECG tracings: not available for review Interpretation: Sinus rhythm Normal axis Ventricular rate is 66 Normal QRS Normal QTC No ST T wave changes MDM Narrative Medical decision making narrative: The patient was in sinus rhythm upon arrival here to the emergency department. She states that she was uncertain as to when she converted back to sinus rhythm but she thought it was just prior to arrival here. She stated that the symptoms she was experiencing last evening are continuing to improve. Had a discussion with her regarding her symptoms. She was observed here in the emergency department for a period of time when her lightheadedness and other symptoms again continue to improve. She did ambulate around the emergency department without any problems and without any disequilibrium. She had a normal stress test within the past 2 months. History of atrial fibrillation. She states this felt like atrial fibrillation. Will hold on further workup for now. I suspect all of her symptoms are residual affects from her being in AFib. She was instructed to contact her primary care doctor tomorrow. She was given return precautions. Both her and her expressed understanding and agreement with plan. Discharge Plan Departure Patient Disposition: Home Clinical Impression: Palpitations Instructions: DI for Atrial Fibrillation, DI for Palpitations Activity Restrictions/Additional Instructions: We are not exactly sure if your any atrial fibrillation last night however given your history and the fact that you stated that symptoms felt very similar it is very possible that you were in AFib prior to arrival here in the ER. I would recommend you continue all of your medications as directed. Contact your primary care doctor for a follow-up. Return to the emergency department for any new symptoms, chest pain, shortness of breath, lightheadedness, palpitations that do not go away after period of time, or any other concerning symptoms. Prescriptions: No Action NUTRITIONAL SUPPLEMENT (CRANBERRY) 1 cap PO Q DAY Qty: 0 RF: 0 Vitamin D3 2,000 iu PO Q DAY Qty: 0 RF: 0 polyethylene glycol 3350 [Miralax] 119 GM powder 17 gm PO Q DAY Qty: 0 RF: 0 estradiol [Vagifem] 10 MCG tablet 10 mcg VG SEE INSTRUCTIONS Qty: 90 RF: 3 hydrochlorothiazide 25 mg tablet 25 mg PO DAILY Qty: 90 RF: 0 lisinopril 5 mg tablet 5 mg PO DAILY RF: 0 gabapentin 300 mg capsule 300 mg PO DAILY RF: 0 atorvastatin 20 mg tablet 20 mg PO DAILY Qty: 90 RF: 3 diltiazem HCl 240 mg capsule,extended release 24hr 240 mg PO DAILY Qty: 90 RF: 3 apixaban [Eliquis] 5 mg tablet 5 mg PO BID Qty: 180 RF: 3 pramipexole [Mirapex] 0.5 MG tablet 0.25 mg PO HS RF: 0
[2018-05-06 01:31] VITALS: BP 172/74; PULSE 72; RESP 20; TEMP 36.8; O2SAT 98; BMI 24.3
[2018-05-06 01:53] VITALS: BP 140/67; PULSE 62; RESP 18; O2SAT 97
[2018-05-06 02:05] VITALS: BP 115/68; PULSE 65; RESP 16; O2SAT 97
== END 2018-05-06 02:05 | disposition home or self-care (01) ==
PROVIDERS: Emergency Provider Emergency Medicine; Family Provider Internal Medicine; PCP Internal Medicine
DX: R00.2 Palpitations (principal)
CPT/HCPCS: 93005; 99282; 99283

== ENCOUNTER → 2018-11-04 09:07 | Outpatient (CLI) | payer MEDICARE, OTHER, SELFPAY ==
--- NOTE | 2018-11-04 | DI.MG.S_ITS ---
UNILATERAL LEFT DIGITAL SCREENING MAMMOGRAM 3D/2D WITH CAD POST MASTECTOMY: 11/04/2018 CLINICAL: Routine screening. Personal history of right breast cancer. Comparison is made to exams dated: 11/03/2017 mammogram, 05/15/2016 mammogram, and 02/13/2014 mammogram - [facility]. The tissue of left breast is extremely dense, which lowers the sensitivity of mammography. Current study was also evaluated with a Computer Aided Detection (CAD) system. There are benign calcifications in the left breast. No significant masses, calcifications, or other findings are seen in the breast. There has been no significant interval change. IMPRESSION: There is no mammographic evidence of malignancy. A 1 year screening mammogram is recommended. This exam was interpreted at Station ID: [id number]. NOTE: For mammograms, a report in lay terms will be sent to the patient. Approximately 15% of breast malignancies will not be visualized mammographically. In the management of a palpable breast mass, a negative mammogram must not discourage biopsy of a clinically suspicious lesion. Electronically Signed By: Riley garcia/benny:11/04/2018 13:40:32 copy to: ANTIONETTE MORA letter sent: Normal Exam ACR BI-RADS Category 2: Benign Finding(s) 3342F
== END ==
PROVIDERS: PCP Internal Medicine; Visit Provider Internal Medicine
DX: Z12.31 Encounter for screening mammogram for malignant neoplasm of breast (principal); Z85.3 Personal history of malignant neoplasm of breast
CPT/HCPCS: 77063; 77067

== ENCOUNTER → 2018-11-17 13:37 | Oncology outpatient (ONC) | payer MEDICARE, OTHER, SELFPAY ==
[2018-03-04 18:31] VITALS: BMI 23.7
[2018-11-17 14:18] VITALS: BP 124/91; PULSE 68; RESP 18; TEMP 36.8; O2SAT 96
--- NOTE | 2018-11-17 14:29 | ONC.PN ---
PN -Subjective Interval history: Diagnosis: DCIS of the right breast, ER negative Previous treatment: 1. Mastectomy October 2016 Interval history: The patient is a 78-year-old woman with a history of DCIS. She returns today for follow-up. Since her last visit here, she has been feeling generally well. She has had an recent knee replacement and is due for physical therapy later today. She has not noticed any other unexpected aches or pains. She has not noticed any changes in the chest wall or breast. No shortness of breath or cough. No GI complaints. She is otherwise feeling well. Her past medical history is otherwise notable for atrial fibrillation. She has a history of hypertension hyperlipidemia. Her current medications include Lipitor diltiazem Eliquis topical vaginal estrogen gabapentin hydrochlorothiazide lisinopril Mirapex and vitamins. Home Medications and Allergies Home Medications Medication Instructions Recorded Confirmed Type NUTRITIONAL SUPPLEMENT (CRANBERRY) 1 cap PO Q DAY #0 06/27/11 09/10/18 History Vitamin D3 2,000 iu PO Q DAY #0 06/27/11 09/10/18 History polyethylene glycol 3350 [Miralax] 17 gm PO Q DAY #0 01/28/12 09/10/18 History estradiol [Vagifem] 10 mcg VG SEE INSTRUCTIONS #90 tab 11/25/17 09/10/18 Rx diltiazem CD 240 mg 240 mg PO DAILY #90 cap 03/16/18 09/10/18 Rx capsule,extended release 24 hr gabapentin 300 mg capsule 300 mg PO DAILY 03/16/18 09/10/18 History vitamin B complex tablet 1 tab PO DAILY 06/04/18 09/10/18 History apixaban 5 mg tablet 5 mg PO BID #180 tab 11/08/18 Rx atorvastatin 20 mg tablet 20 mg PO DAILY #90 tab 11/08/18 Rx hydrochlorothiazide 25 mg tablet 25 mg PO DAILY #90 tab 11/08/18 Rx lisinopril 5 mg tablet 5 mg PO DAILY #90 tab 11/08/18 Rx pramipexole 0.5 mg tablet See Rx Instructions PO HS #90 tab 11/11/18 Rx Allergies Allergy/AdvReac Type Severity Reaction Status Date / Time niacin [NIACIN] AdvReac Unknown itching Verified 09/10/18 11:37 Exam Vital signs: Vital Signs Temp Pulse Resp BP Pulse Ox 11/17/18 14:18 98.3 F 68 18 124/91 H 96 Intake and Output 11/16/18 11/17/18 11/17/18 23:59 07:59 15:59 Other: Weight 81.6 kg Patient Weight 11/17/18 23:59 Weight 81.6 kg - Constitutional positive no acute distress, positive average body habitus - Routine HEENT Exam Head: Present: normocephalic, atraumatic Eye: Present: EOMI, PERRL. Absent: conjunctival icterus, scleral injection ENT: Present: mucous membranes moist, oropharynx clear - Routine Neck Exam Present: supple. Absent: lymphadenopathy, thyromegaly - Routine Chest/Breast/Axilla Exam Breast: Present: right mastectomy Axillae: Absent: lymphadenopathy Comments: She has a well-healed reconstruction on the right. There is no nodularity or masses. There are no suspicious masses in the left breast. There is no axillary adenopathy on either side. - Routine Respiratory Exam Present: Clear to auscultation bilaterally. Absent: rales, wheezes - Routine Cardiovascular Exam Present: RRR, S1, S2. Absent: murmur - Routine Abdominal Exam Present: soft, normoactive bowel sounds. Absent: tenderness, organomegaly, mass - Routine Extremities Exam Comments: She has some compression stockings on her lower extremities. She does have an incision over her right knee which appears to be healing well. - Routine Skin Exam Absent: petechiae, rash - Routine Neurological Exam Present: alert, oriented X3 - Routine Psychiatric Exam Present: normal affect, normal thought process Results - Imaging Additional studies: Procedures Colonoscopy (03/15/12) Assessment and Plan (1) DCIS (ductal carcinoma in situ) of breast Current visit: No Status: Acute 78-year-old woman with a history of DCIS. Her recent mammogram was negative. She is doing well and will return to clinic in 1 year for follow-up. She will be due for another mammogram at that time.
== END ==
LOC: ONC 13:38
PROVIDERS: PCP Internal Medicine
DX: Z09 Encounter for follow-up examination after completed treatment for conditions other than malignant neoplasm (principal); Z86.000 Personal history of in-situ neoplasm of breast; I48.91 Unspecified atrial fibrillation; I10 Essential (primary) hypertension; E78.5 Hyperlipidemia, unspecified; Z79.01 Long term (current) use of anticoagulants
CPT/HCPCS: 99214

== ENCOUNTER → 2018-12-10 08:29 | Outpatient (CLI) | payer MEDICARE, OTHER, SELFPAY ==
[2018-03-04 18:31] VITALS: BMI 23.7
[2018-12-10 09:02] LABS: Add Manual Diff / Slide Review NO; Basophils Absolute Auto 0 /uL (0-100); Basophils Percent Auto 0.9 % (0-2); Eosinophils Absolute Auto 100 /uL (0-450); Eosinophils Percent Auto 1.1 % (2-4); Hematocrit 40.3 % (36-46); Hemoglobin 13.8 g/dL (12.0-16.0); Lymphocytes Absolute Auto 1500 /uL (1100-4500); Lymphocytes Percent Auto 28.4 % (25-40); Mean Corpuscular HGB Conc 34.4 % (30-36); Mean Corpuscular Hemoglobin 31.9 PG (26-34); Mean Corpuscular Volume 92.9 fL (80-100); Monocytes Absolute Auto 700 /uL (0-900); Monocytes Percent Auto 12.6 % (3-14); Neutrophils Absolute Auto 3000 /uL (1500-7000); Platelet Count 291 X10^3/uL (150-400); Red Blood Cell Count 4.34 X10^6/uL (4.0-5.2); Red Cell Distribution Width 13.3 % (11.6-14.8); White Blood Cell Count 5.2 X10^3/uL (4.5-11.0)
[2018-12-10 09:22] LABS: Erythrocyte Sedimentation Rate 38 MM/HR (0-20)
[2018-12-10 09:34] LABS: Alanine Aminotransferase 15 IU/L (9-52); Albumin 4.6 g/dL (3.5-5.0); Albumin Globulin Ratio 1.5 (1.0-2.8); Alkaline Phosphatase 122 U/L (38-126); Aspartate Aminotransferase 24 IU/L (14-36); BUN Creatinine Ratio 22.5 (6-22); Bilirubin Total 0.5 mg/dL (0.2-1.3); Blood Urea Nitrogen 18 mg/dL (7-17); Calcium 9.8 mg/dL (8.4-10.2); Carbon Dioxide 28 mmol/L (22-32); Chloride 99 mmol/L (98-107); Estimated Glomerular Filt Rate > 60.0 mL/min (>60); Glucose 122 mg/dL (80-110); HEMOLYSIS < 15 (0-50); Potassium 4.3 mmol/L (3.4-5.1); Sodium 137 mmol/L (137-145); Total Protein 7.6 g/dL (6.3-8.2)
[2018-12-10 11:17] LABS: TSH w/ Reflex to FT4 0.93 uIU/mL (0.47-4.68)
== END ==
PROVIDERS: PCP Internal Medicine; Visit Provider Internal Medicine
DX: I10 Essential (primary) hypertension (principal); M17.10 Unilateral primary osteoarthritis, unspecified knee; R53.83 Other fatigue; Z79.01 Long term (current) use of anticoagulants
CPT/HCPCS: 36415; 80053; 84443; 85025; 85651

== ENCOUNTER 2018-12-23 10:30 | Outpatient (RCR) | payer MEDICARE, OTHER, SELFPAY ==
[2018-03-04 18:31] VITALS: BMI 23.7
--- NOTE | 2018-11-11 08:54 | PT.OIE ---
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) (Inactive ~06/2016) Back pain (Chronic) Hyperglycemia (Chronic 06/27/11) Cataract (Chronic 2012) Retinal tear (Inactive 2007) Positive PPD (Inactive 1961) Arthritis of finger (Chronic 2013) Hip arthritis (Chronic 2013) Frequent UTI (Chronic 1993) Chicken pox (Resolved) Knee osteoarthritis (Resolved) Measles (Resolved) Mumps (Resolved) Plantar fasciitis (Resolved 2003) Past Surgical History (Last Updated 09/10/18 @ 11:29 by Mike Gutierrez MD) H/O right mastectomy (Inactive ~10/2017) History of lumpectomy (Resolved 08/19/16) S/P carpal tunnel release (Resolved ~01/06/18) Provider Visit Care Team Role Provider Type Mike Gutierrez MD Primary Care Provider Physician Specialty: Internal Medicine Address: [address] [place] [address], [id number] Email: [email or web address] Kenny Coley MD Attending Provider Non-Staff Specialty: Orthopedics Address: [address] [place] [address] Email: Physical Therapy Initial Evaluation PT-OP-A Visit Information Start: 11/10/18 14:05 Freq: Status: Active Protocol: Document 11/10/18 15:14 [facility] (Rec: 11/10/18 15:25 [facility]AK [id number]) Out-Patient Physical Therapy Visit Information Visit Information Visit Type Initial Evaluation Visit Start Time 15:15 Visit Stop Time 16:10 Total Visit Minutes 55 Visit Number 1 Number of RETAIL PRICING COORDINATOR Visits 0 Evaluation Information Evaluation Date 11/10/18 Precautions Precautions WBAT right LE PT-OP-B Current Condition Start: 11/10/18 14:05 Freq: Status: Active Protocol: Document 11/10/18 15:14 [facility] (Rec: 11/10/18 15:25 [facility] [id number]) Current Condition History of Current Condition Onset Date 11/05/18 Current Complaints weakness, decreased ROM, swelling right knee History of Current Condition right TKA by Dr. Coley. Discharged home day after surgery. No stairs at home. Does have shower chair. No grab bars due to not wanting to drill into tile. Taking Tylenol 100mg 3x/day and Oxycodone 5mg PRN (reports taking prior to exercises, and took prior to PT today) Prior Treatments and Tests right CARLA Treatment Goals Patient/Caregiver Goals Return to dancing, taking walks Prior Functional Status Baseline Function- ADL's Independent Baseline Function- Mobility Independent Baseline Function- Gait independent, no device Baseline Function- Work/School retired Baseline Function- Recreation/Hobbies dancing 1-2x/wk, taking long walks Current Functional Impairments (Reported) Functional Limitations- ADL's painful, some assist from Functional Limitations- Mobility/Gait short distance FWW for gait uses left LE to lift right LE in and out of bed 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 PT-OP-C Subjective Start: 11/10/18 14:05 Freq: Status: Active Protocol: Document 11/10/18 15:14 [facility] (Rec: 11/11/18 08:52 [facility] [id number]) Patient Questionnaires Lower Extremity Functional Scale LEFS Score 14% LEFS Impairment 80 to 99% Impaired (Score 1-16 ) OP-PT Pain Assessment Pain Assessment Grid Paper Pain Assessment Grid Completed Yes Location right knee Pain Location Details anterior knee Intensity 5 Scale Used Numeric (1 - 10) Pain Alleviating Factors Cold Medication Inactivity PT-OP-G Mobility & Gait Start: 11/10/18 14:05 Freq: Status: Active Protocol: Document 11/10/18 15:14 [facility] (Rec: 11/11/18 08:52 [facility] [id number]) OP Mobility Evaluation Bed Mobility Supine to and from Sit uses left LE to move right LE Transfers Sit to Stand independent with use of UE's and decreased weight-bearing right LE OP Gait Assessment Gait Gait Assistance Required: Standby Assistance Distance (Feet) 50 Assistive Devices Assistive Device Front Wheeled Walker Gait Deviations General Gait Pattern Antalgic Decreased Stride Length Decreased Feet Clearance Flexed Trunk Factors Limiting Gait Function Factors Limiting Gait Function Decreased Strength Limited Range of Motion Pain Stair Climbing Evaluation Comments Stair Climbing Comments not assessed today. PT-OP-J Posture/Palpation/Skin Start: 11/10/18 14:05 Freq: Status: Active Protocol: Document 11/10/18 15:14 [facility] (Rec: 11/11/18 08:52 [facility] [id number]) Palpation Assessment Location right knee Palpation Findings Edema Soft Tissue Tightness Muscle Guarding Tenderness Palpation Details mild increase in warmth right knee. Skin Assessment Edema Assessment right knee Edema Degree 2+ Edema Appearance Puffy Subjective Edema Description Pain Tightness PT-OP-K Range of Motion Start: 11/10/18 14:05 Freq: Status: Active Protocol: Document 11/10/18 15:14 [facility] (Rec: 11/11/18 08:52 [facility] [id number]) Knee Goniometric Range of Motion Knee Measured in Degrees Right Flexion Active (degrees) 85 Flexion Passive (degrees) 92 Extension Active (degrees) 27 Extension Passive (degrees) 12 Left Flexion Active (degrees) 130 Extension Active (degrees) 0 Knee ROM Limitations Knee ROM Limitations Soft Tissue Tightness Muscle Weakness Pain Swelling PT-OP-M Strength Start: 11/10/18 14:05 Freq: Status: Active Protocol: Document 11/10/18 15:14 [facility] (Rec: 11/11/18 08:52 [facility] [id number]) Knee Strength Knee Manual Muscle Testing Right Comments independent SAQ within available ROM, SLR requires use of UE's with strap. Patient requires use of left LE to move right LE on and off bed Left Flexion (S2) 5 Normal Extension (L3) 5 Normal Ankle/Foot Strength Ankle and Foot Manual Muscle Testing mike Dorsiflexion (L4) 5 Normal Plantarflexion (S1) 5 Normal PT-OP-Q Treatments Start: 11/10/18 14:05 Freq: Status: Active Protocol: Document 11/10/18 15:14 [facility] (Rec: 11/10/18 16:43 [facility] [id number]) Self-Care/Home Management Treatment Education Patient Education Home Exercise Program Pain Management Other Education elevation above heart when icing Reviewed HEP and added standing hip/knee flex, standing knee flex PT-OP-R Modalities Start: 11/10/18 14:05 Freq: Status: Active Protocol: Document 11/10/18 15:14 [facility] (Rec: 11/10/18 16:43 [facility] [id number]) Electric Stimulation Electric Stimulation Interferential Current (IFC) Body Location right knee Duration (Minutes) 12 Intensity 18 Target/Sweep Sweep Patient Position Hooklying Combined With Heat/Cold Cold Pack Comments right LE elevated with wedge, bolster, and pillow PT-OP-T Assessment and Plan Start: 11/10/18 14:05 Freq: Status: Active Protocol: Document 11/10/18 15:14 [facility] (Rec: 11/11/18 08:52 [facility] [id number]) Physical Therapy Assessment Rehab Potential Rehabilitation Potential Good Evaluation Complexity Number of Personal Factors/Comorbidities 3 or More Number of Body Systems Impaired 3 Clinical Presentation at Evaluation Evolving Impairments Impairments Edema Gait Pain ROM Strength Other Concerns Barriers to Rehabilitation weakness right hip with prior CARLA. Goals 4 Impairment lacking HEP to address functional LE strength and ROM impairments Short Term Goal (STG) Progress HEP as tolerated to include functional, closed chain ex STG Duration 4 wks Fpc Goal (LTG) Patient to be independent and compliant with HEP LTG Duration 8 wks 3 Impairment pain right knee 5-8/10 Short Term Goal (STG) decrease pain to no greater than 4/10 STG Duration 4 wks Fpc Goal (LTG) decrease pain to no greater than 1-2/10 LTG Duration 8 wks 2 Impairment Antalgic gait using FWW Short Term Goal (STG) Patient able to ambulate with SPC with min to no limp on level surfaces and stairs STG Duration 4 wks Welding Manager Goal (LTG) Patient able to ambulate without assistive device with no limp on level and uneven surfaces LTG Duration 8 wks 1 Impairment right knee AROM 27-85 Short Term Goal (STG) Improve right knee AROM to 5- 110 STG Duration 4 wks Welding Manager Goal (LTG) Improve right knee AROM to 0- 120 LTG Duration 8 wks Assessment Summary Assessment Patient presents with typical ROM, gait, strength impairments s/p right TKA 3/22 /19. Moderate right LE edema. Patient HEP was reviewed and updated to include 2 standing ex. Gait training regarding upright posture, and increasing ROM of knee with gait using FWW. Patient compliant with wearing thigh- high ELISHA hose but was instructed to elevate right LE above heart when icing after exercise to help with edema. Her was present and both demonstrated good understanding of above. Patient has been compliant with HEP 3x/day as instructed in hospital. She is highly motivated and anticipate her to have a positive recovery from this surgery and be able to return to her active lifestyle. Physical Therapy Plan Frequency and Duration Frequency of Treatment 2x/Week Duration of Treatment 8 wks Plan of Care Start Date 11/10/18 Plan of Care End Date 01/10/19 Therapeutic Interventions Therapeutic Interventions Aquatic Therapy Gait Training Home Exercise Program Manual Therapy Neuromuscular Re-education Patient/Caregiver Education Self-Care/Home Management Soft Tissue Mobilization Taping Therapeutic Activities Therapeutic Exercises Modalities Cold Pack/Ice Massage Electric Stimulation Next Visit Focus/Plan Next Note Type Treatment Note Next Visit Plan Initiate use of recumbant elliptical for gentle warml-up and knee ROM, review HEP and progress with right knee TKA rehab for ROM, strengthening, gait training, pain and edema management with modalities.
--- NOTE | 2018-11-11 08:54 | PT.OPPOC ---
Current Diagnoses Other chronic pain (11/10/18) Unilateral primary osteoarthritis, right knee (11/10/18) Pain in right knee (11/10/18) Difficulty in walking, not elsewhere classified (11/10/18) Weakness (11/10/18) Aftercare following joint replacement surgery (11/10/18) Provider Visit Care Team Role Provider Type Mike Gutierrez MD Primary Care Provider Physician Specialty: Internal Medicine Address: [address] [place] [address] [address], [address] Email: [email or web address] Kenny Coley MD Attending Provider Non-Staff Specialty: Orthopedics Address: [address] [place] [address] [address], [address] Email: Plan Of Care PT-OP-T Assessment and Plan Start: 11/10/18 14:05 Freq: Status: Active Protocol: Document 11/10/18 15:14 SAK (Rec: 11/11/18 08:52 [facility] [id number]) Physical Therapy Assessment Rehab Potential Rehabilitation Potential Good Evaluation Complexity Number of Personal Factors/Comorbidities 3 or More Number of Body Systems Impaired 3 Clinical Presentation at Evaluation Evolving Impairments Impairments Edema Gait Pain ROM Strength Other Concerns Barriers to Rehabilitation weakness right hip with prior CARLA. Goals 4 Impairment lacking HEP to address functional LE strength and ROM impairments Short Term Goal (STG) Progress HEP as tolerated to include functional, closed chain ex STG Duration 4 wks Support Engineer Goal (LTG) Patient to be independent and compliant with HEP LTG Duration 8 wks 3 Impairment pain right knee 5-8/10 Short Term Goal (STG) decrease pain to no greater than 4/10 STG Duration 4 wks Support Engineer Goal (LTG) decrease pain to no greater than 1-2/10 LTG Duration 8 wks 2 Impairment Antalgic gait using FWW Short Term Goal (STG) Patient able to ambulate with SPC with min to no limp on level surfaces and stairs STG Duration 4 wks Support Engineer Goal (LTG) Patient able to ambulate without assistive device with no limp on level and uneven surfaces LTG Duration 8 wks 1 Impairment right knee AROM 27-85 Short Term Goal (STG) Improve right knee AROM to 5- 110 STG Duration 4 wks Halfway Goal (LTG) Improve right knee AROM to 0- 120 LTG Duration 8 wks Assessment Summary Assessment Patient presents with typical ROM, gait, strength impairments s/p right TKA 11/05. Moderate right LE edema. Patient HEP was reviewed and updated to include 2 standing ex. Gait training regarding upright posture, and increasing ROM of knee with gait using FWW. Patient compliant with wearing thigh- high ELISHA hose but was instructed to elevate right LE above heart when icing after exercise to help with edema. Her was present and both demonstrated good understanding of above. Patient has been compliant with HEP 3x/day as instructed in hospital. She is highly motivated and anticipate her to have a positive recovery from this surgery and be able to return to her active lifestyle. Physical Therapy Plan Frequency and Duration Frequency of Treatment 2x/Week Duration of Treatment 8 wks Plan of Care Start Date 11/10/18 Plan of Care End Date 01/10/19 Therapeutic Interventions Therapeutic Interventions Aquatic Therapy Gait Training Home Exercise Program Manual Therapy Neuromuscular Re-education Patient/Caregiver Education Self-Care/Home Management Soft Tissue Mobilization Taping Therapeutic Activities Therapeutic Exercises Modalities Cold Pack/Ice Massage Electric Stimulation Next Visit Focus/Plan Next Note Type Treatment Note Next Visit Plan Initiate use of recumbant elliptical for gentle warml-up and knee ROM, review HEP and progress with right knee TKA rehab for ROM, strengthening, gait training, pain and edema management with modalities. Plan of Care Dates Plan of Care Start Date 11/10/18 Plan of Care End Date 01/10/19 Please Sign and Return: I have reviewed this Plan of Care and certify that the skilled therapy services above are required to meet the patient?s needs. Physician Signature Date Printed Name and Credentials Clinical Instructor Signature Printed Name and Credentials
--- NOTE | 2018-11-12 14:59 | PT.OTN ---
Current Diagnoses Other chronic pain (11/12/18) Unilateral primary osteoarthritis, right knee (11/12/18) Pain in right knee (11/12/18) Physical Therapy Treatment Note PT-OP-A Visit Information Start: 11/10/18 14:05 Freq: Status: Active Protocol: Document 11/12/18 08:21 SAK (Rec: 11/12/18 09:00 [facility] [id number]) Out-Patient Physical Therapy Visit Information Visit Information Visit Type Treatment Note Visit Start Time 08:15 Visit Stop Time 09:12 Total Visit Minutes 57 Visit Number 2 Number of GOLD BURNISHER Visits 0 Evaluation Information Evaluation Date 11/10/18 Precautions Precautions WBAT right LE PT-OP-B Current Condition Start: 11/10/18 14:05 Freq: Status: Active Protocol: Document 11/10/18 15:14 SAK (Rec: 11/10/18 15:25 [facility] [id number]) Current Condition History of Current Condition Onset Date 11/05/18 Current Complaints weakness, decreased ROM, swelling right knee History of Current Condition right TKA by Dr. Coley. Discharged home day after surgery. No stairs at home. Does have shower chair. No grab bars due to not wanting to drill into tile. Taking Tylenol 100mg 3x/day and Oxycodone 5mg PRN (reports taking prior to exercises, and took prior to PT today) Prior Treatments and Tests right CARLA Treatment Goals Patient/Caregiver Goals Return to dancing, taking walks Prior Functional Status Baseline Function- ADL's Independent Baseline Function- Mobility Independent Baseline Function- Gait independent, no device Baseline Function- Work/School retired Baseline Function- Recreation/Hobbies dancing 1-2x/wk, taking long walks Current Functional Impairments (Reported) Functional Limitations- ADL's painful, some assist from Functional Limitations- Mobility/Gait short distance FWW for gait uses left LE to lift right LE in and out of bed 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 PT-OP-C Subjective Start: 11/10/18 14:05 Freq: Status: Active Protocol: Document 11/12/18 08:21 SAK (Rec: 11/12/18 14:57 [facility] [id number]) OP-PT Subjective Patient Comments Patient Comments Fatigued, took pain pill prior to PT. PT-OP-G Mobility & Gait Start: 11/10/18 14:05 Freq: Status: Active Protocol: Document 11/10/18 15:14 [facility] (Rec: 11/11/18 08:52 [facility] [id number]) OP Mobility Evaluation Bed Mobility Supine to and from Sit uses left LE to move right LE Transfers Sit to Stand independent with use of UE's and decreased weight-bearing right LE OP Gait Assessment Gait Gait Assistance Required: Standby Assistance Distance (Feet) 50 Assistive Devices Assistive Device Front Wheeled Walker Gait Deviations General Gait Pattern Antalgic Decreased Stride Length Decreased Feet Clearance Flexed Trunk Factors Limiting Gait Function Factors Limiting Gait Function Decreased Strength Limited Range of Motion Pain Stair Climbing Evaluation Comments Stair Climbing Comments not assessed today. PT-OP-J Posture/Palpation/Skin Start: 11/10/18 14:05 Freq: Status: Active Protocol: Document 11/10/18 15:14 [facility] (Rec: 11/11/18 08:52 [facility] [id number]) Palpation Assessment Location right knee Palpation Findings Edema Soft Tissue Tightness Muscle Guarding Tenderness Palpation Details mild increase in warmth right knee. Skin Assessment Edema Assessment right knee Edema Degree 2+ Edema Appearance Puffy Subjective Edema Description Pain Tightness PT-OP-K Range of Motion Start: 11/10/18 14:05 Freq: Status: Active Protocol: Document 11/10/18 15:14 [facility] (Rec: 11/11/18 08:52 [facility] [id number]) Knee Goniometric Range of Motion Knee Measured in Degrees Right Flexion Active (degrees) 85 Flexion Passive (degrees) 92 Extension Active (degrees) 27 Extension Passive (degrees) 12 Left Flexion Active (degrees) 130 Extension Active (degrees) 0 Knee ROM Limitations Knee ROM Limitations Soft Tissue Tightness Muscle Weakness Pain Swelling PT-OP-M Strength Start: 11/10/18 14:05 Freq: Status: Active Protocol: Document 11/10/18 15:14 [facility] (Rec: 11/11/18 08:52 [facility] [id number]) Knee Strength Knee Manual Muscle Testing Right Comments independent SAQ within available ROM, SLR requires use of UE's with strap. Patient requires use of left LE to move right LE on and off bed Left Flexion (S2) 5 Normal Extension (L3) 5 Normal Ankle/Foot Strength Ankle and Foot Manual Muscle Testing mike Dorsiflexion (L4) 5 Normal Plantarflexion (S1) 5 Normal PT-OP-Q Treatments Start: 11/10/18 14:05 Freq: Status: Active Protocol: Document 11/12/18 08:21 [facility] (Rec: 11/12/18 09:00 [facility] [id number]) Cardio Equipment Recumbent Elliptical (Biodex) Duration (Minutes) 6 Resistance 1 Seat Position 10 Therapeutic Exercises Supine Exercises quad set Side right Reps/Minutes towel roll under ankle gravity assisted knee flex Reps/Minutes 5x Sitting Exercises knee flex Reps/Minutes 3x 10 Comments opposite LE assisting with stretch LAQ Reps/Minutes 10x Standing Exercises HC stretch Equipment Used JULIAN Reps/Minutes 30 x 2 knee flex Reps/Minutes 10x march Reps/Minutes 10x step-touches Reps/Minutes 10x 4, 10x 6 Gait Training Gait Activity level surface Device Used cane Level of Assistance CGA to SBA, verbal cues for sequencing Self-Care/Home Management Treatment Education Patient Education Home Exercise Program Other Education added gravity eliminated knee flex PT-OP-R Modalities Start: 11/10/18 14:05 Freq: Status: Active Protocol: Document 11/12/18 08:21 [facility] (Rec: 11/12/18 09:00 [facility] [id number]) Electric Stimulation Electric Stimulation Interferential Current (IFC) Body Location right knee Duration (Minutes) 12 Intensity 18 Target/Sweep Sweep Patient Position Hooklying Combined With Heat/Cold Cold Pack Comments right LE elevated with wedge, bolster, and pillow PT-OP-T Assessment and Plan Start: 11/10/18 14:05 Freq: Status: Active Protocol: Document 11/12/18 08:21 [facility] (Rec: 11/12/18 09:00 [facility] [id number]) Physical Therapy Assessment Goals 4 Impairment lacking HEP to address functional LE strength and ROM impairments Short Term Goal (STG) Progress HEP as tolerated to include functional, closed chain ex STG Duration 4 wks Senior Living Goal (LTG) Patient to be independent and compliant with HEP LTG Duration 8 wks 3 Impairment pain right knee 5-8/10 Short Term Goal (STG) decrease pain to no greater than 4/10 STG Duration 4 wks Senior Living Goal (LTG) decrease pain to no greater than 1-2/10 LTG Duration 8 wks 2 Impairment Antalgic gait using FWW Short Term Goal (STG) Patient able to ambulate with SPC with min to no limp on level surfaces and stairs STG Duration 4 wks Continuity Director Goal (LTG) Patient able to ambulate without assistive device with no limp on level and uneven surfaces LTG Duration 8 wks 1 Impairment right knee AROM 27-85 Short Term Goal (STG) Improve right knee AROM to 5- 110 STG Duration 4 wks Continuity Director Goal (LTG) Improve right knee AROM to 0- 120 LTG Duration 8 wks Assessment Summary Assessment right knee flex inc to 94, with decreased edema noted at end of session as compared to last session. Demonstrates good understanding of HEP, present to observe and is able to assist with gravity assisted knee flex. Physical Therapy Plan Frequency and Duration Frequency of Treatment 2x/Week Duration of Treatment 8 wks Plan of Care Start Date 11/10/18 Plan of Care End Date 01/10/19 Therapeutic Interventions Therapeutic Interventions Aquatic Therapy Gait Training Home Exercise Program Manual Therapy Neuromuscular Re-education Patient/Caregiver Education Self-Care/Home Management Soft Tissue Mobilization Taping Therapeutic Activities Therapeutic Exercises Modalities Cold Pack/Ice Massage Electric Stimulation Next Visit Focus/Plan Next Note Type Treatment Note Next Visit Plan Add shuttle leg press and shuttle balance, contract- relax technique to increase knee flex.
--- NOTE | 2018-11-15 15:36 | PT.OTN ---
Current Diagnoses Other chronic pain (11/15/18) Unilateral primary osteoarthritis, right knee (11/15/18) Pain in right knee (11/15/18) Physical Therapy Treatment Note PT-OP-A Visit Information Start: 11/10/18 14:05 Freq: Status: Active Protocol: Document 11/15/18 09:10 SAK (Rec: 11/15/18 09:45 [facility] [id number]) Out-Patient Physical Therapy Visit Information Visit Information Visit Type Treatment Note Visit Start Time 08:15 Visit Stop Time 09:10 Total Visit Minutes 55 Visit Number 3 Number of LAUNDRY HOUSEKEEPING AIDE Visits 0 Evaluation Information Evaluation Date 11/10/18 Precautions Precautions WBAT right LE PT-OP-B Current Condition Start: 11/10/18 14:05 Freq: Status: Active Protocol: Document 11/10/18 15:14 SAK (Rec: 11/10/18 15:25 [facility] [id number]) Current Condition History of Current Condition Onset Date 11/05/18 Current Complaints weakness, decreased ROM, swelling right knee History of Current Condition right TKA by Dr. Coley. Discharged home day after surgery. No stairs at home. Does have shower chair. No grab bars due to not wanting to drill into tile. Taking Tylenol 100mg 3x/day and Oxycodone 5mg PRN (reports taking prior to exercises, and took prior to PT today) Prior Treatments and Tests right CARLA Treatment Goals Patient/Caregiver Goals Return to dancing, taking walks Prior Functional Status Baseline Function- ADL's Independent Baseline Function- Mobility Independent Baseline Function- Gait independent, no device Baseline Function- Work/School retired Baseline Function- Recreation/Hobbies dancing 1-2x/wk, taking long walks Current Functional Impairments (Reported) Functional Limitations- ADL's painful, some assist from Functional Limitations- Mobility/Gait short distance FWW for gait uses left LE to lift right LE in and out of bed 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 PT-OP-C Subjective Start: 11/10/18 14:05 Freq: Status: Active Protocol: Document 11/15/18 09:10 SAK (Rec: 11/15/18 09:45 [facility] [id number]) OP-PT Subjective Patient Comments Patient Comments Using cane instead of walker now. PT-OP-G Mobility & Gait Start: 11/10/18 14:05 Freq: Status: Active Protocol: Document 11/10/18 15:14 [facility] (Rec: 11/11/18 08:52 [facility] [id number]) OP Mobility Evaluation Bed Mobility Supine to and from Sit uses left LE to move right LE Transfers Sit to Stand independent with use of UE's and decreased weight-bearing right LE OP Gait Assessment Gait Gait Assistance Required: Standby Assistance Distance (Feet) 50 Assistive Devices Assistive Device Front Wheeled Walker Gait Deviations General Gait Pattern Antalgic Decreased Stride Length Decreased Feet Clearance Flexed Trunk Factors Limiting Gait Function Factors Limiting Gait Function Decreased Strength Limited Range of Motion Pain Stair Climbing Evaluation Comments Stair Climbing Comments not assessed today. PT-OP-J Posture/Palpation/Skin Start: 11/10/18 14:05 Freq: Status: Active Protocol: Document 11/10/18 15:14 [facility] (Rec: 11/11/18 08:52 [facility] [id number]) Palpation Assessment Location right knee Palpation Findings Edema Soft Tissue Tightness Muscle Guarding Tenderness Palpation Details mild increase in warmth right knee. Skin Assessment Edema Assessment right knee Edema Degree 2+ Edema Appearance Puffy Subjective Edema Description Pain Tightness PT-OP-K Range of Motion Start: 11/10/18 14:05 Freq: Status: Active Protocol: Document 11/10/18 15:14 [facility] (Rec: 11/11/18 08:52 [facility] [id number]) Knee Goniometric Range of Motion Knee Measured in Degrees Right Flexion Active (degrees) 85 Flexion Passive (degrees) 92 Extension Active (degrees) 27 Extension Passive (degrees) 12 Left Flexion Active (degrees) 130 Extension Active (degrees) 0 Knee ROM Limitations Knee ROM Limitations Soft Tissue Tightness Muscle Weakness Pain Swelling PT-OP-M Strength Start: 11/10/18 14:05 Freq: Status: Active Protocol: Document 11/10/18 15:14 [facility] (Rec: 11/11/18 08:52 [facility] [id number]) Knee Strength Knee Manual Muscle Testing Right Comments independent SAQ within available ROM, SLR requires use of UE's with strap. Patient requires use of left LE to move right LE on and off bed Left Flexion (S2) 5 Normal Extension (L3) 5 Normal Ankle/Foot Strength Ankle and Foot Manual Muscle Testing mike Dorsiflexion (L4) 5 Normal Plantarflexion (S1) 5 Normal PT-OP-Q Treatments Start: 11/10/18 14:05 Freq: Status: Active Protocol: Document 11/15/18 09:10 [facility] (Rec: 11/15/18 09:45 [facility] [id number]) Cardio Equipment Recumbent Elliptical (Biodex) Duration (Minutes) 8 Resistance 1 Seat Position 9 Gym Equipment Shuttle Recovery Bilateral Squats Resistance 50 Shuttle Recovery Platform Stable Reps/Time 10x Therapeutic Exercises Supine Exercises quad set Side right Reps/Minutes towel roll under ankle Comments 10x gravity assisted knee flex Reps/Minutes 6x Comments slider sheet Sitting Exercises knee flex Equipment Used L1 TB Reps/Minutes 10x Standing Exercises stair lunge Reps/Minutes 10x HC stretch Equipment Used JULIAN Reps/Minutes 30 x 2 knee flex Reps/Minutes 10x Gait Training Gait Activity stairs Level of Assistance verbal cues level surface Device Used cane Level of Assistance CGA to SBA, verbal cues for sequencing Distance/Duration 4 stairs Treatment Focus alternating pattern Comments 3x Self-Care/Home Management Treatment Education Patient Education Home Exercise Program Other Education added sitting knee flex with TB, gravity assisted knee flex , stair lunge, HC stretch PT-OP-R Modalities Start: 11/10/18 14:05 Freq: Status: Active Protocol: Document 11/15/18 09:10 [facility] (Rec: 11/15/18 09:45 [facility] [id number]) Electric Stimulation Electric Stimulation Interferential Current (IFC) Body Location right knee Duration (Minutes) 12 Intensity 18 Target/Sweep Sweep Patient Position Hooklying Combined With Heat/Cold Cold Pack Comments right LE elevated with wedge, bolster, and pillow PT-OP-T Assessment and Plan Start: 11/10/18 14:05 Freq: Status: Active Protocol: Document 11/15/18 09:10 [facility] (Rec: 11/15/18 09:45 [facility] [id number]) Physical Therapy Assessment Goals 4 Impairment lacking HEP to address functional LE strength and ROM impairments Short Term Goal (STG) Progress HEP as tolerated to include functional, closed chain ex STG Duration 4 wks Halfway Goal (LTG) Patient to be independent and compliant with HEP LTG Duration 8 wks 3 Impairment pain right knee 5-8/10 Short Term Goal (STG) decrease pain to no greater than 4/10 STG Duration 4 wks Halfway Goal (LTG) decrease pain to no greater than 1-2/10 LTG Duration 8 wks 2 Impairment Antalgic gait using FWW Short Term Goal (STG) Patient able to ambulate with SPC with min to no limp on level surfaces and stairs STG Duration 4 wks Supervisor Marble Goal (LTG) Patient able to ambulate without assistive device with no limp on level and uneven surfaces LTG Duration 8 wks 1 Impairment right knee AROM 27-85 Short Term Goal (STG) Improve right knee AROM to 5- 110 STG Duration 4 wks Supervisor Marble Goal (LTG) Improve right knee AROM to 0- 120 LTG Duration 8 wks Assessment Summary Assessment right knee flex PROM increased to 102, improved gait with ability to ambulate with straight cane, min limp, cues for increased knee flexion. Physical Therapy Plan Frequency and Duration Frequency of Treatment 2x/Week Duration of Treatment 8 wks Plan of Care Start Date 11/10/18 Plan of Care End Date 01/10/19 Therapeutic Interventions Therapeutic Interventions Aquatic Therapy Gait Training Home Exercise Program Manual Therapy Neuromuscular Re-education Patient/Caregiver Education Self-Care/Home Management Soft Tissue Mobilization Taping Therapeutic Activities Therapeutic Exercises Modalities Cold Pack/Ice Massage Electric Stimulation Next Visit Focus/Plan Next Note Type Treatment Note Next Visit Plan Add shuttle balance, contract- relax technique to increase knee flex. Single leg squat on shuttle leg press
--- NOTE | 2018-11-17 17:23 | PT.OTN ---
Current Diagnoses Other chronic pain (11/17/18) Unilateral primary osteoarthritis, right knee (11/17/18) Pain in right knee (11/17/18) Physical Therapy Treatment Note PT-OP-A Visit Information Start: 11/10/18 14:05 Freq: Status: Active Protocol: Document 11/17/18 14:30 SAK (Rec: 11/17/18 15:14 SAK [id number]) Out-Patient Physical Therapy Visit Information Visit Information Visit Type Treatment Note Visit Start Time 14:30 Visit Stop Time 15:25 Total Visit Minutes 55 Visit Number 3 Number of COAL EQUIPMENT OPERATOR Visits 0 Evaluation Information Evaluation Date 11/10/18 Precautions Precautions WBAT right LE PT-OP-B Current Condition Start: 11/10/18 14:05 Freq: Status: Active Protocol: Document 11/10/18 15:14 SAK (Rec: 11/10/18 15:25 [facility] [id number]) Current Condition History of Current Condition Onset Date 11/05/18 Current Complaints weakness, decreased ROM, swelling right knee History of Current Condition right TKA by Dr. Coley. Discharged home day after surgery. No stairs at home. Does have shower chair. No grab bars due to not wanting to drill into tile. Taking Tylenol 100mg 3x/day and Oxycodone 5mg PRN (reports taking prior to exercises, and took prior to PT today) Prior Treatments and Tests right CARLA Treatment Goals Patient/Caregiver Goals Return to dancing, taking walks Prior Functional Status Baseline Function- ADL's Independent Baseline Function- Mobility Independent Baseline Function- Gait independent, no device Baseline Function- Work/School retired Baseline Function- Recreation/Hobbies dancing 1-2x/wk, taking long walks Current Functional Impairments (Reported) Functional Limitations- ADL's painful, some assist from Functional Limitations- Mobility/Gait short distance FWW for gait uses left LE to lift right LE in and out of bed 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 PT-OP-C Subjective Start: 11/10/18 14:05 Freq: Status: Active Protocol: Document 11/17/18 14:30 SAK (Rec: 11/17/18 15:14 [facility] [id number]) OP-PT Subjective Patient Comments Patient Comments Ok the night after last session, bad night last night. Sees surgeon tomorrow. PT-OP-G Mobility & Gait Start: 11/10/18 14:05 Freq: Status: Active Protocol: Document 11/10/18 15:14 [facility] (Rec: 11/11/18 08:52 [facility] [id number]) OP Mobility Evaluation Bed Mobility Supine to and from Sit uses left LE to move right LE Transfers Sit to Stand independent with use of UE's and decreased weight-bearing right LE OP Gait Assessment Gait Gait Assistance Required: Standby Assistance Distance (Feet) 50 Assistive Devices Assistive Device Front Wheeled Walker Gait Deviations General Gait Pattern Antalgic Decreased Stride Length Decreased Feet Clearance Flexed Trunk Factors Limiting Gait Function Factors Limiting Gait Function Decreased Strength Limited Range of Motion Pain Stair Climbing Evaluation Comments Stair Climbing Comments not assessed today. PT-OP-J Posture/Palpation/Skin Start: 11/10/18 14:05 Freq: Status: Active Protocol: Document 11/10/18 15:14 [facility] (Rec: 11/11/18 08:52 [facility] [id number]) Palpation Assessment Location right knee Palpation Findings Edema Soft Tissue Tightness Muscle Guarding Tenderness Palpation Details mild increase in warmth right knee. Skin Assessment Edema Assessment right knee Edema Degree 2+ Edema Appearance Puffy Subjective Edema Description Pain Tightness PT-OP-K Range of Motion Start: 11/10/18 14:05 Freq: Status: Active Protocol: Document 11/10/18 15:14 [facility] (Rec: 11/11/18 08:52 [facility] [id number]) Knee Goniometric Range of Motion Knee Measured in Degrees Right Flexion Active (degrees) 85 Flexion Passive (degrees) 92 Extension Active (degrees) 27 Extension Passive (degrees) 12 Left Flexion Active (degrees) 130 Extension Active (degrees) 0 Knee ROM Limitations Knee ROM Limitations Soft Tissue Tightness Muscle Weakness Pain Swelling PT-OP-M Strength Start: 11/10/18 14:05 Freq: Status: Active Protocol: Document 11/10/18 15:14 [facility] (Rec: 11/11/18 08:52 [facility] [id number]) Knee Strength Knee Manual Muscle Testing Right Comments independent SAQ within available ROM, SLR requires use of UE's with strap. Patient requires use of left LE to move right LE on and off bed Left Flexion (S2) 5 Normal Extension (L3) 5 Normal Ankle/Foot Strength Ankle and Foot Manual Muscle Testing mike Dorsiflexion (L4) 5 Normal Plantarflexion (S1) 5 Normal PT-OP-Q Treatments Start: 11/10/18 14:05 Freq: Status: Active Protocol: Document 11/17/18 14:30 [facility] (Rec: 11/17/18 15:14 [facility] [id number]) Cardio Equipment Recumbent Elliptical (Biodex) Duration (Minutes) 8 Resistance 1 Seat Position 9 Gym Equipment Shuttle Recovery Unilateral Squats Resistance 37 left, 25 right Shuttle Recovery Platform Stable Bilateral Squats Resistance 50 Shuttle Recovery Platform Stable Reps/Time 10x Therapeutic Exercises Supine Exercises quad set Side right Reps/Minutes towel roll under ankle Comments 10x gravity assisted knee flex Reps/Minutes 4x Comments slider sheet Sitting Exercises LAQ Reps/Minutes 10x Comments manual assist at end range Standing Exercises stair lunge Reps/Minutes 10x HC stretch Reps/Minutes 30 x 2 knee flex Reps/Minutes 10x Gait Training Gait Activity stairs Description hallway stairs Level of Assistance verbal cues Distance/Duration 12 stairs Comments 4 stairs alternating pattern. level surface Device Used cane Level of Assistance CGA to SBA, verbal cues for sequencing Neuro Re-Education Treatment Balance Activities tiltboard Details standing bal and weight shift Comments fwd/bck, side PT-OP-R Modalities Start: 11/10/18 14:05 Freq: Status: Active Protocol: Document 11/17/18 14:30 [facility] (Rec: 11/17/18 15:14 [facility] [id number]) Electric Stimulation Electric Stimulation Interferential Current (IFC) Body Location right knee Duration (Minutes) 12 Intensity 18 Target/Sweep Sweep Patient Position Hooklying Combined With Heat/Cold Cold Pack Comments right LE elevated with wedge, bolster, and pillow PT-OP-T Assessment and Plan Start: 11/10/18 14:05 Freq: Status: Active Protocol: Document 11/17/18 14:30 [facility] (Rec: 11/17/18 15:14 [facility] [id number]) Physical Therapy Assessment Goals 4 Impairment lacking HEP to address functional LE strength and ROM impairments Short Term Goal (STG) Progress HEP as tolerated to include functional, closed chain ex STG Duration 4 wks Retirement Goal (LTG) Patient to be independent and compliant with HEP LTG Duration 8 wks 3 Impairment pain right knee 5-8/10 Short Term Goal (STG) decrease pain to no greater than 4/10 STG Duration 4 wks Ophthalmology Technician Goal (LTG) decrease pain to no greater than 1-2/10 LTG Duration 8 wks 2 Impairment Antalgic gait using FWW Short Term Goal (STG) Patient able to ambulate with SPC with min to no limp on level surfaces and stairs STG Duration 4 wks Ophthalmology Technician Goal (LTG) Patient able to ambulate without assistive device with no limp on level and uneven surfaces LTG Duration 8 wks 1 Impairment right knee AROM 27-85 Short Term Goal (STG) Improve right knee AROM to 5- 110 STG Duration 4 wks Ophthalmology Technician Goal (LTG) Improve right knee AROM to 0- 120 LTG Duration 8 wks Assessment Summary Assessment continues to make good progress with right knee flex increase to 110 today. Physical Therapy Plan Frequency and Duration Frequency of Treatment 2x/Week Duration of Treatment 8 wks Plan of Care Start Date 11/10/18 Plan of Care End Date 01/10/19 Therapeutic Interventions Therapeutic Interventions Aquatic Therapy Gait Training Home Exercise Program Manual Therapy Neuromuscular Re-education Patient/Caregiver Education Self-Care/Home Management Soft Tissue Mobilization Taping Therapeutic Activities Therapeutic Exercises Modalities Cold Pack/Ice Massage Electric Stimulation Next Visit Focus/Plan Next Note Type Treatment Note Next Visit Plan Initiate gentle patellar mobilization, continue to progress TKA rehab. Encourage symmetrical movement with gait.
--- NOTE | 2018-11-19 14:41 | PT.OTN ---
Current Diagnoses Other chronic pain (11/19/18) Unilateral primary osteoarthritis, right knee (11/19/18) Pain in right knee (11/19/18) Physical Therapy Treatment Note PT-OP-A Visit Information Start: 11/10/18 14:05 Freq: Status: Active Protocol: Document 11/19/18 09:52 LRN (Rec: 11/19/18 10:37 LRN [id number]) Out-Patient Physical Therapy Visit Information Visit Information Visit Type Treatment Note Visit Start Time 09:52 Visit Stop Time 10:44 Total Visit Minutes 52 Visit Number 4 Number of SQUARING MACHINE OPERATOR Visits 0 Evaluation Information Evaluation Date 11/10/18 PT-OP-B Current Condition Start: 11/10/18 14:05 Freq: Status: Active Protocol: Document 11/10/18 15:14 SAK (Rec: 11/10/18 15:25 SAK [id number]) Current Condition History of Current Condition Onset Date 11/05/18 Current Complaints weakness, decreased ROM, swelling right knee History of Current Condition right TKA by Dr. Coley. Discharged home day after surgery. No stairs at home. Does have shower chair. No grab bars due to not wanting to drill into tile. Taking Tylenol 100mg 3x/day and Oxycodone 5mg PRN (reports taking prior to exercises, and took prior to PT today) Prior Treatments and Tests right CARLA Treatment Goals Patient/Caregiver Goals Return to dancing, taking walks Prior Functional Status Baseline Function- ADL's Independent Baseline Function- Mobility Independent Baseline Function- Gait independent, no device Baseline Function- Work/School retired Baseline Function- Recreation/Hobbies dancing 1-2x/wk, taking long walks Current Functional Impairments (Reported) Functional Limitations- ADL's painful, some assist from Functional Limitations- Mobility/Gait short distance FWW for gait uses left LE to lift right LE in and out of bed 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 PT-OP-C Subjective Start: 11/10/18 14:05 Freq: Status: Active Protocol: Document 11/19/18 09:52 LRN (Rec: 11/19/18 10:37 LRN [id number]) OP-PT Subjective Patient Comments Patient Comments States her knee flexion is limited. Pt is 14 days post op R TKA. Had sotero removed yesterday. Not wearing socks at night anymore. PT-OP-G Mobility & Gait Start: 11/10/18 14:05 Freq: Status: Active Protocol: Document 11/10/18 15:14 [facility] (Rec: 11/11/18 08:52 [facility] [id number]) OP Mobility Evaluation Bed Mobility Supine to and from Sit uses left LE to move right LE Transfers Sit to Stand independent with use of UE's and decreased weight-bearing right LE OP Gait Assessment Gait Gait Assistance Required: Standby Assistance Distance (Feet) 50 Assistive Devices Assistive Device Front Wheeled Walker Gait Deviations General Gait Pattern Antalgic Decreased Stride Length Decreased Feet Clearance Flexed Trunk Factors Limiting Gait Function Factors Limiting Gait Function Decreased Strength Limited Range of Motion Pain Stair Climbing Evaluation Comments Stair Climbing Comments not assessed today. PT-OP-J Posture/Palpation/Skin Start: 11/10/18 14:05 Freq: Status: Active Protocol: Document 11/10/18 15:14 [facility] (Rec: 11/11/18 08:52 [facility] [id number]) Palpation Assessment Location right knee Palpation Findings Edema Soft Tissue Tightness Muscle Guarding Tenderness Palpation Details mild increase in warmth right knee. Skin Assessment Edema Assessment right knee Edema Degree 2+ Edema Appearance Puffy Subjective Edema Description Pain Tightness PT-OP-K Range of Motion Start: 11/10/18 14:05 Freq: Status: Active Protocol: Document 11/10/18 15:14 [facility] (Rec: 11/11/18 08:52 [facility] [id number]) Knee Goniometric Range of Motion Knee Measured in Degrees Right Flexion Active (degrees) 85 Flexion Passive (degrees) 92 Extension Active (degrees) 27 Extension Passive (degrees) 12 Left Flexion Active (degrees) 130 Extension Active (degrees) 0 Knee ROM Limitations Knee ROM Limitations Soft Tissue Tightness Muscle Weakness Pain Swelling PT-OP-M Strength Start: 11/10/18 14:05 Freq: Status: Active Protocol: Document 11/10/18 15:14 [facility] (Rec: 11/11/18 08:52 [facility] [id number]) Knee Strength Knee Manual Muscle Testing Right Comments independent SAQ within available ROM, SLR requires use of UE's with strap. Patient requires use of left LE to move right LE on and off bed Left Flexion (S2) 5 Normal Extension (L3) 5 Normal Ankle/Foot Strength Ankle and Foot Manual Muscle Testing mike Dorsiflexion (L4) 5 Normal Plantarflexion (S1) 5 Normal PT-OP-Q Treatments Start: 11/10/18 14:05 Freq: Status: Active Protocol: Document 11/19/18 09:52 LRN (Rec: 11/19/18 10:37 LRN [id number]) Cardio Equipment Recumbent Stepper (Sci-Fit) Duration (Minutes) 10 Resistance 1 Seat Position 9 Other Seat started at 13 Gym Equipment Shuttle Recovery Unilateral Squats Resistance 25, 37 right; 37 left Shuttle Recovery Platform Stable Reps/Time R: each wgt 10 reps, L: 20x Bilateral Squats Resistance 50 Shuttle Recovery Platform Stable Reps/Time 30x Therapeutic Exercises Supine Exercises R knee flex w/T-Ball Supine Exercise Name Active knee flex Side right Reps/Minutes 30x Gait Training Gait Activity level surface Device Used cane Level of Assistance CGA to SBA, verbal cues for sequencing Treatment Focus Weight shift left and pelvic lateral shift. Manual Therapy Treatment Joint Mobilizations R Patella Joint R patella Direction super>infer, med>lateral PT-OP-R Modalities Start: 11/10/18 14:05 Freq: Status: Active Protocol: Document 11/19/18 09:52 LRN (Rec: 11/19/18 10:37 LRN [id number]) Hot Pack/Cold Pack Treatment Cold Pack Location R knee Patient Position Supine Treatment Duration (minutes) 10 Comments LE elevated PT-OP-T Assessment and Plan Start: 11/10/18 14:05 Freq: Status: Active Protocol: Document 11/19/18 09:52 LRN (Rec: 11/19/18 10:37 LRN [id number]) Physical Therapy Assessment Assessment Summary Assessment Improved R active knee flex to 112-113 deg's. Hyper mobile R patella due to quad weakness . Good tolerance to ex with increase in LE strength noted on Shuttle. Further gait training needed. Physical Therapy Plan Frequency and Duration Frequency of Treatment 2x/Week Duration of Treatment 8 wks Plan of Care Start Date 11/10/18 Plan of Care End Date 01/10/19 Next Visit Focus/Plan Next Note Type Treatment Note Next Visit Plan Continue to progress TKA rehab . Gait training for proper weight shift and posture. Recheck symmetry of step lengths.
--- NOTE | 2018-11-24 13:23 | PT.OTN ---
Current Diagnoses Other chronic pain (11/24/18) Unilateral primary osteoarthritis, right knee (11/24/18) Pain in right knee (11/24/18) Physical Therapy Treatment Note PT-OP-A Visit Information Start: 11/10/18 14:05 Freq: Status: Active Protocol: Document 11/24/18 08:27 [facility] (Rec: 11/24/18 09:49 [facility] [id number]) Out-Patient Physical Therapy Visit Information Visit Information Visit Type Treatment Note Visit Start Time 08:15 Visit Stop Time 09:10 Total Visit Minutes 55 Visit Number 6 Number of PLASTICS FABRICATOR OR WELDER Visits 0 Precautions Precautions WBAT right LE PT-OP-B Current Condition Start: 11/10/18 14:05 Freq: Status: Active Protocol: Document 11/10/18 15:14 [facility] (Rec: 11/10/18 15:25 [facility] [id number]) Current Condition History of Current Condition Onset Date 11/05/18 Current Complaints weakness, decreased ROM, swelling right knee History of Current Condition right TKA by Dr. Coley. Discharged home day after surgery. No stairs at home. Does have shower chair. No grab bars due to not wanting to drill into tile. Taking Tylenol 100mg 3x/day and Oxycodone 5mg PRN (reports taking prior to exercises, and took prior to PT today) Prior Treatments and Tests right CARLA Treatment Goals Patient/Caregiver Goals Return to dancing, taking walks Prior Functional Status Baseline Function- ADL's Independent Baseline Function- Mobility Independent Baseline Function- Gait independent, no device Baseline Function- Work/School retired Baseline Function- Recreation/Hobbies dancing 1-2x/wk, taking long walks Current Functional Impairments (Reported) Functional Limitations- ADL's painful, some assist from Functional Limitations- Mobility/Gait short distance FWW for gait uses left LE to lift right LE in and out of bed 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 PT-OP-C Subjective Start: 11/10/18 14:05 Freq: Status: Active Protocol: Document 11/24/18 08:27 [facility] (Rec: 11/24/18 09:49 [facility] [id number]) OP-PT Subjective Patient Comments Patient Comments no new c/o, slept better last night. PT-OP-G Mobility & Gait Start: 11/10/18 14:05 Freq: Status: Active Protocol: Document 11/10/18 15:14 [facility] (Rec: 11/11/18 08:52 [facility] [id number]) OP Mobility Evaluation Bed Mobility Supine to and from Sit uses left LE to move right LE Transfers Sit to Stand independent with use of UE's and decreased weight-bearing right LE OP Gait Assessment Gait Gait Assistance Required: Standby Assistance Distance (Feet) 50 Assistive Devices Assistive Device Front Wheeled Walker Gait Deviations General Gait Pattern Antalgic Decreased Stride Length Decreased Feet Clearance Flexed Trunk Factors Limiting Gait Function Factors Limiting Gait Function Decreased Strength Limited Range of Motion Pain Stair Climbing Evaluation Comments Stair Climbing Comments not assessed today. PT-OP-J Posture/Palpation/Skin Start: 11/10/18 14:05 Freq: Status: Active Protocol: Document 11/10/18 15:14 [facility] (Rec: 11/11/18 08:52 [facility] [id number]) Palpation Assessment Location right knee Palpation Findings Edema Soft Tissue Tightness Muscle Guarding Tenderness Palpation Details mild increase in warmth right knee. Skin Assessment Edema Assessment right knee Edema Degree 2+ Edema Appearance Puffy Subjective Edema Description Pain Tightness PT-OP-K Range of Motion Start: 11/10/18 14:05 Freq: Status: Active Protocol: Document 11/10/18 15:14 [facility] (Rec: 11/11/18 08:52 [facility] [id number]) Knee Goniometric Range of Motion Knee Measured in Degrees Right Flexion Active (degrees) 85 Flexion Passive (degrees) 92 Extension Active (degrees) 27 Extension Passive (degrees) 12 Left Flexion Active (degrees) 130 Extension Active (degrees) 0 Knee ROM Limitations Knee ROM Limitations Soft Tissue Tightness Muscle Weakness Pain Swelling PT-OP-M Strength Start: 11/10/18 14:05 Freq: Status: Active Protocol: Document 11/10/18 15:14 [facility] (Rec: 11/11/18 08:52 [facility] [id number]) Knee Strength Knee Manual Muscle Testing Right Comments independent SAQ within available ROM, SLR requires use of UE's with strap. Patient requires use of left LE to move right LE on and off bed Left Flexion (S2) 5 Normal Extension (L3) 5 Normal Ankle/Foot Strength Ankle and Foot Manual Muscle Testing mike Dorsiflexion (L4) 5 Normal Plantarflexion (S1) 5 Normal PT-OP-Q Treatments Start: 11/10/18 14:05 Freq: Status: Active Protocol: Document 11/24/18 08:27 [facility] (Rec: 11/24/18 09:49 [facility] [id number]) Cardio Equipment Recumbent Elliptical (Biodex) Duration (Minutes) 5 Resistance 1 Seat Position 9 Bicycle (Upright) Duration (Minutes) 5 Resistance 2 Seat Position 6-5 Gym Equipment Shuttle Recovery Unilateral Squats Resistance 37 mike Shuttle Recovery Platform Stable Reps/Time 1x10 Bilateral Squats Resistance 75 Shuttle Recovery Platform Stable Reps/Time 30x Shuttle Balance chains red Details balance and weight shift Therapeutic Exercises Supine Exercises SAQ Reps/Minutes 10x quad set Side right Reps/Minutes towel roll under ankle Comments 10x gravity assisted knee flex Reps/Minutes 5x Comments slider sheet Standing Exercises knee extension Resistance L1 TB Reps/Minutes 10x knee flex Resistance 1# Reps/Minutes 10x Gait Training Gait Activity backward Treatment Focus knee extension stairs Description hallway stairs Level of Assistance verbal cues Distance/Duration 24 stairs Comments 4 stairs alternating pattern. level surface Level of Assistance SBA, verbal cues Treatment Focus Weight shift left and pelvic lateral shift. Manual Therapy Treatment Soft Tissue Mobilization quads, hamstrings Body Location right quad, HS Mobilization Type Rolling Strumming Intensity/Depth mod Body Position Hooklying PT-OP-R Modalities Start: 11/10/18 14:05 Freq: Status: Active Protocol: Document 11/25/18 08:27 [facility] (Rec: 11/25/18 13:23 [facility] [id number]) Electric Stimulation Electric Stimulation Interferential Current (IFC) Body Location right knee Duration (Minutes) 12 Intensity 18 Target/Sweep Sweep Patient Position Hooklying Combined With Heat/Cold Cold Pack Comments right LE elevated with wedge, bolster, and pillow PT-OP-T Assessment and Plan Start: 11/10/18 14:05 Freq: Status: Active Protocol: Document 11/25/18 08:27 [facility] (Rec: 11/25/18 13:23 [facility] [id number]) Physical Therapy Assessment Goals 4 Impairment lacking HEP to address functional LE strength and ROM impairments Short Term Goal (STG) Progress HEP as tolerated to include functional, closed chain ex STG Duration 4 wks Half-Way Goal (LTG) Patient to be independent and compliant with HEP LTG Duration 8 wks 3 Impairment pain right knee 5-8/10 Short Term Goal (STG) decrease pain to no greater than 4/10 STG Duration 4 wks Property And Supply Officer Goal (LTG) decrease pain to no greater than 1-2/10 LTG Duration 8 wks 2 Impairment Antalgic gait using FWW Short Term Goal (STG) Patient able to ambulate with SPC with min to no limp on level surfaces and stairs STG Duration 4 wks Half-Way Goal (LTG) Patient able to ambulate without assistive device with no limp on level and uneven surfaces LTG Duration 8 wks 1 Impairment right knee AROM 27-85 Short Term Goal (STG) Improve right knee AROM to 5- 110 STG Duration 4 wks Half-Way Goal (LTG) Improve right knee AROM to 0- 120 LTG Duration 8 wks Assessment Summary Assessment right knee PROM to 124 today, active 118 (end of session). Swelling decreasing, patient continues to wear thigh high compression stockings. Physical Therapy Plan Frequency and Duration Frequency of Treatment 2x/Week Duration of Treatment 8 wks Plan of Care Start Date 11/10/18 Plan of Care End Date 01/10/19 Therapeutic Interventions Therapeutic Interventions Aquatic Therapy Gait Training Home Exercise Program Manual Therapy Neuromuscular Re-education Patient/Caregiver Education Self-Care/Home Management Soft Tissue Mobilization Taping Therapeutic Activities Therapeutic Exercises Modalities Cold Pack/Ice Massage Electric Stimulation Next Visit Focus/Plan Next Note Type Treatment Note Next Visit Plan Continue TKA rehab, progress strengthening, add squats, 1- 2# ankle weights with SAQ
--- NOTE | 2018-11-26 15:34 | PT.OTN ---
Current Diagnoses Other chronic pain (11/26/18) Unilateral primary osteoarthritis, right knee (11/26/18) Pain in right knee (11/26/18) Physical Therapy Treatment Note PT-OP-A Visit Information Start: 11/10/18 14:05 Freq: Status: Active Protocol: Document 11/26/18 08:15 [facility] (Rec: 11/26/18 09:21 [facility] [id number]) Out-Patient Physical Therapy Visit Information Visit Information Visit Type Treatment Note Visit Start Time 08:15 Visit Stop Time 09:10 Total Visit Minutes 55 Visit Number 7 Number of OYSTER FISHERMAN Visits 0 Precautions Precautions WBAT right LE PT-OP-B Current Condition Start: 11/10/18 14:05 Freq: Status: Active Protocol: Document 11/10/18 15:14 [facility] (Rec: 11/10/18 15:25 [facility] [id number]) Current Condition History of Current Condition Onset Date 11/05/18 Current Complaints weakness, decreased ROM, swelling right knee History of Current Condition right TKA by Dr. Coley. Discharged home day after surgery. No stairs at home. Does have shower chair. No grab bars due to not wanting to drill into tile. Taking Tylenol 100mg 3x/day and Oxycodone 5mg PRN (reports taking prior to exercises, and took prior to PT today) Prior Treatments and Tests right CARLA Treatment Goals Patient/Caregiver Goals Return to dancing, taking walks Prior Functional Status Baseline Function- ADL's Independent Baseline Function- Mobility Independent Baseline Function- Gait independent, no device Baseline Function- Work/School retired Baseline Function- Recreation/Hobbies dancing 1-2x/wk, taking long walks Current Functional Impairments (Reported) Functional Limitations- ADL's painful, some assist from Functional Limitations- Mobility/Gait short distance FWW for gait uses left LE to lift right LE in and out of bed 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 PT-OP-C Subjective Start: 11/10/18 14:05 Freq: Status: Active Protocol: Document 11/26/18 08:15 [facility] (Rec: 11/26/18 09:21 [facility] [id number]) OP-PT Subjective Patient Comments Patient Comments Improving walking, compliant to HEP. Wondering if her is resisting her too much with knee flex with theraband, very sore. PT-OP-G Mobility & Gait Start: 11/10/18 14:05 Freq: Status: Active Protocol: Document 11/10/18 15:14 [facility] (Rec: 11/11/18 08:52 [facility] [id number]) OP Mobility Evaluation Bed Mobility Supine to and from Sit uses left LE to move right LE Transfers Sit to Stand independent with use of UE's and decreased weight-bearing right LE OP Gait Assessment Gait Gait Assistance Required: Standby Assistance Distance (Feet) 50 Assistive Devices Assistive Device Front Wheeled Walker Gait Deviations General Gait Pattern Antalgic Decreased Stride Length Decreased Feet Clearance Flexed Trunk Factors Limiting Gait Function Factors Limiting Gait Function Decreased Strength Limited Range of Motion Pain Stair Climbing Evaluation Comments Stair Climbing Comments not assessed today. PT-OP-J Posture/Palpation/Skin Start: 11/10/18 14:05 Freq: Status: Active Protocol: Document 11/10/18 15:14 [facility] (Rec: 11/11/18 08:52 [facility] [id number]) Palpation Assessment Location right knee Palpation Findings Edema Soft Tissue Tightness Muscle Guarding Tenderness Palpation Details mild increase in warmth right knee. Skin Assessment Edema Assessment right knee Edema Degree 2+ Edema Appearance Puffy Subjective Edema Description Pain Tightness PT-OP-K Range of Motion Start: 11/10/18 14:05 Freq: Status: Active Protocol: Document 11/10/18 15:14 [facility] (Rec: 11/11/18 08:52 [facility] [id number]) Knee Goniometric Range of Motion Knee Measured in Degrees Right Flexion Active (degrees) 85 Flexion Passive (degrees) 92 Extension Active (degrees) 27 Extension Passive (degrees) 12 Left Flexion Active (degrees) 130 Extension Active (degrees) 0 Knee ROM Limitations Knee ROM Limitations Soft Tissue Tightness Muscle Weakness Pain Swelling PT-OP-M Strength Start: 11/10/18 14:05 Freq: Status: Active Protocol: Document 11/10/18 15:14 [facility] (Rec: 11/11/18 08:52 [facility] [id number]) Knee Strength Knee Manual Muscle Testing Right Comments independent SAQ within available ROM, SLR requires use of UE's with strap. Patient requires use of left LE to move right LE on and off bed Left Flexion (S2) 5 Normal Extension (L3) 5 Normal Ankle/Foot Strength Ankle and Foot Manual Muscle Testing mike Dorsiflexion (L4) 5 Normal Plantarflexion (S1) 5 Normal PT-OP-Q Treatments Start: 11/10/18 14:05 Freq: Status: Active Protocol: Document 11/26/18 08:15 [facility] (Rec: 11/26/18 09:21 [facility] [id number]) Cardio Equipment Recumbent Elliptical (Biodex) Duration (Minutes) 5 Resistance 2 Seat Position 9 Bicycle (Upright) Duration (Minutes) 5 Resistance 2 Seat Position 5-4 Gym Equipment Shuttle Balance chains red Details balance and weight shift Comments fwd/bck, side Therapeutic Exercises Sitting Exercises hip ab/ER Resistance L2 TB Reps/Minutes 10x knee flex Equipment Used L2 TB Reps/Minutes 10x Comments painful Standing Exercises squats Reps/Minutes 10x2 Comments verbal and tactile cues, visual cues from mirror for alignment and form BOSU lunge Reps/Minutes 10x ea Comments cues for LE alignment knee extension Resistance L1 TB Reps/Minutes 10x Manual Therapy Treatment Soft Tissue Mobilization quads, hamstrings Body Location right quad, HS Mobilization Type Rolling Strumming Intensity/Depth mod Body Position Hooklying Joint Mobilizations R Patella Joint R patella Direction super>infer, med>lateral PT-OP-R Modalities Start: 11/10/18 14:05 Freq: Status: Active Protocol: Document 11/26/18 08:15 [facility] (Rec: 11/26/18 09:21 [facility] [id number]) Electric Stimulation Electric Stimulation Interferential Current (IFC) Body Location right knee Duration (Minutes) 12 Intensity 18 Target/Sweep Sweep Patient Position Hooklying Combined With Heat/Cold Cold Pack Comments right LE elevated with wedge, bolster, and pillow PT-OP-T Assessment and Plan Start: 11/10/18 14:05 Freq: Status: Active Protocol: Document 11/26/18 08:15 [facility] (Rec: 11/26/18 09:21 [facility] [id number]) Physical Therapy Assessment Goals 4 Impairment lacking HEP to address functional LE strength and ROM impairments Short Term Goal (STG) Progress HEP as tolerated to include functional, closed chain ex STG Duration 4 wks Special Education Assistant Goal (LTG) Patient to be independent and compliant with HEP LTG Duration 8 wks 3 Impairment pain right knee 5-8/10 Short Term Goal (STG) decrease pain to no greater than 4/10 STG Duration 4 wks Fpc Goal (LTG) decrease pain to no greater than 1-2/10 LTG Duration 8 wks 2 Impairment Antalgic gait using FWW Short Term Goal (STG) Patient able to ambulate with SPC with min to no limp on level surfaces and stairs STG Duration 4 wks Fpc Goal (LTG) Patient able to ambulate without assistive device with no limp on level and uneven surfaces LTG Duration 8 wks 1 Impairment right knee AROM 27-85 Short Term Goal (STG) Improve right knee AROM to 5- 110 STG Duration 4 wks Special Education Assistant Goal (LTG) Improve right knee AROM to 0- 120 LTG Duration 8 wks Physical Therapy Plan Frequency and Duration Frequency of Treatment 2x/Week Duration of Treatment 8 wks Plan of Care Start Date 11/10/18 Plan of Care End Date 01/10/19 Therapeutic Interventions Therapeutic Interventions Aquatic Therapy Gait Training Home Exercise Program Manual Therapy Neuromuscular Re-education Patient/Caregiver Education Self-Care/Home Management Soft Tissue Mobilization Taping Therapeutic Activities Therapeutic Exercises Modalities Cold Pack/Ice Massage Electric Stimulation Next Visit Focus/Plan Next Note Type Treatment Note Next Visit Plan Continue TKA rehab, progress strengthening, add squats, 1- 2# ankle weights with SAQ
--- NOTE | 2018-11-30 14:46 | PT.OTN ---
Current Diagnoses Other chronic pain (11/30/18) Unilateral primary osteoarthritis, right knee (11/30/18) Pain in right knee (11/30/18) Physical Therapy Treatment Note PT-OP-A Visit Information Start: 11/10/18 14:05 Freq: Status: Active Protocol: Document 11/30/18 08:59 [facility]AK (Rec: 11/30/18 09:47 [facility] [id number]) Out-Patient Physical Therapy Visit Information Visit Information Visit Type Treatment Note Visit Start Time 08:15 Visit Stop Time 09:10 Total Visit Minutes 55 Visit Number 8 Number of PUTTY MAKER Visits 0 Evaluation Information Evaluation Date 11/10/18 Precautions Precautions WBAT right LE PT-OP-B Current Condition Start: 11/10/18 14:05 Freq: Status: Active Protocol: Document 11/10/18 15:14 SAK (Rec: 11/10/18 15:25 [facility] [id number]) Current Condition History of Current Condition Onset Date 11/05/18 Current Complaints weakness, decreased ROM, swelling right knee History of Current Condition right TKA by Dr. Coley. Discharged home day after surgery. No stairs at home. Does have shower chair. No grab bars due to not wanting to drill into tile. Taking Tylenol 100mg 3x/day and Oxycodone 5mg PRN (reports taking prior to exercises, and took prior to PT today) Prior Treatments and Tests right CARLA Treatment Goals Patient/Caregiver Goals Return to dancing, taking walks Prior Functional Status Baseline Function- ADL's Independent Baseline Function- Mobility Independent Baseline Function- Gait independent, no device Baseline Function- Work/School retired Baseline Function- Recreation/Hobbies dancing 1-2x/wk, taking long walks Current Functional Impairments (Reported) Functional Limitations- ADL's painful, some assist from Functional Limitations- Mobility/Gait short distance FWW for gait uses left LE to lift right LE in and out of bed 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 PT-OP-C Subjective Start: 11/10/18 14:05 Freq: Status: Active Protocol: Document 11/30/18 08:59 [facility] (Rec: 11/30/18 09:47 [facility] [id number]) OP-PT Subjective Patient Comments Patient Comments Sleeping ok with use of pain medications. Tolerating increased activity fairly well . PT-OP-G Mobility & Gait Start: 11/10/18 14:05 Freq: Status: Active Protocol: Document 11/10/18 15:14 [facility] (Rec: 11/11/18 08:52 [facility] [id number]) OP Mobility Evaluation Bed Mobility Supine to and from Sit uses left LE to move right LE Transfers Sit to Stand independent with use of UE's and decreased weight-bearing right LE OP Gait Assessment Gait Gait Assistance Required: Standby Assistance Distance (Feet) 50 Assistive Devices Assistive Device Front Wheeled Walker Gait Deviations General Gait Pattern Antalgic Decreased Stride Length Decreased Feet Clearance Flexed Trunk Factors Limiting Gait Function Factors Limiting Gait Function Decreased Strength Limited Range of Motion Pain Stair Climbing Evaluation Comments Stair Climbing Comments not assessed today. PT-OP-J Posture/Palpation/Skin Start: 11/10/18 14:05 Freq: Status: Active Protocol: Document 11/10/18 15:14 [facility] (Rec: 11/11/18 08:52 [facility] [id number]) Palpation Assessment Location right knee Palpation Findings Edema Soft Tissue Tightness Muscle Guarding Tenderness Palpation Details mild increase in warmth right knee. Skin Assessment Edema Assessment right knee Edema Degree 2+ Edema Appearance Puffy Subjective Edema Description Pain Tightness PT-OP-K Range of Motion Start: 11/10/18 14:05 Freq: Status: Active Protocol: Document 11/10/18 15:14 [facility] (Rec: 11/11/18 08:52 [facility] [id number]) Knee Goniometric Range of Motion Knee Measured in Degrees Right Flexion Active (degrees) 85 Flexion Passive (degrees) 92 Extension Active (degrees) 27 Extension Passive (degrees) 12 Left Flexion Active (degrees) 130 Extension Active (degrees) 0 Knee ROM Limitations Knee ROM Limitations Soft Tissue Tightness Muscle Weakness Pain Swelling PT-OP-M Strength Start: 11/10/18 14:05 Freq: Status: Active Protocol: Document 11/10/18 15:14 [facility] (Rec: 11/11/18 08:52 [facility] [id number]) Knee Strength Knee Manual Muscle Testing Right Comments independent SAQ within available ROM, SLR requires use of UE's with strap. Patient requires use of left LE to move right LE on and off bed Left Flexion (S2) 5 Normal Extension (L3) 5 Normal Ankle/Foot Strength Ankle and Foot Manual Muscle Testing mike Dorsiflexion (L4) 5 Normal Plantarflexion (S1) 5 Normal PT-OP-Q Treatments Start: 11/10/18 14:05 Freq: Status: Active Protocol: Document 11/30/18 08:59 [facility] (Rec: 11/30/18 09:47 [facility] [id number]) Cardio Equipment Recumbent Elliptical (Biodex) Duration (Minutes) 5 Resistance 2 Seat Position 9 Bicycle (Upright) Duration (Minutes) 6 Resistance 2 Seat Position 5-4 Gym Equipment Shuttle Recovery Unilateral Squats Resistance 37 mike Shuttle Recovery Platform Stable Reps/Time 1x10 Bilateral Squats Resistance 75 Shuttle Recovery Platform Stable Reps/Time 30x Shuttle Balance chains red Details balance and weight shift Comments fwd/bck, side: feet parallel, staggered Therapeutic Exercises Supine Exercises gravity assisted knee flex Reps/Minutes 5x Comments slider sheet Sitting Exercises LAQ Resistance 1# Reps/Minutes 10x Standing Exercises squats Reps/Minutes 10x2 Comments verbal and tactile cues, visual cues from mirror for alignment and form BOSU lunge Reps/Minutes 10x ea Comments cues for LE alignment knee extension Resistance L1 TB Reps/Minutes 10x knee flex Resistance 1# Reps/Minutes 10x Manual Therapy Treatment Soft Tissue Mobilization TKA scar Mobilization Type Rolling Strumming Intensity/Depth Moderate quads, hamstrings Body Location right quad, HS Mobilization Type Rolling Strumming Intensity/Depth mod Body Position Hooklying PT-OP-R Modalities Start: 11/10/18 14:05 Freq: Status: Active Protocol: Document 11/30/18 08:59 [facility] (Rec: 11/30/18 14:46 [facility] [id number]) Electric Stimulation Electric Stimulation Interferential Current (IFC) Body Location right knee Duration (Minutes) 12 Intensity 18 Target/Sweep Sweep Patient Position Hooklying Combined With Heat/Cold Cold Pack Comments right LE elevated with wedge, bolster, and pillow PT-OP-T Assessment and Plan Start: 11/10/18 14:05 Freq: Status: Active Protocol: Document 11/30/18 08:59 [facility] (Rec: 11/30/18 09:47 [facility] [id number]) Physical Therapy Assessment Goals 4 Impairment lacking HEP to address functional LE strength and ROM impairments Short Term Goal (STG) Progress HEP as tolerated to include functional, closed chain ex STG Duration 4 wks Minesweeping Officer Goal (LTG) Patient to be independent and compliant with HEP LTG Duration 8 wks 3 Impairment pain right knee 5-8/10 Short Term Goal (STG) decrease pain to no greater than 4/10 STG Duration 4 wks Minesweeping Officer Goal (LTG) decrease pain to no greater than 1-2/10 LTG Duration 8 wks 2 Impairment Antalgic gait using FWW Short Term Goal (STG) Patient able to ambulate with SPC with min to no limp on level surfaces and stairs STG Duration 4 wks Minesweeping Officer Goal (LTG) Patient able to ambulate without assistive device with no limp on level and uneven surfaces LTG Duration 8 wks 1 Impairment right knee AROM 27-85 Short Term Goal (STG) Improve right knee AROM to 5- 110 STG Duration 4 wks Minesweeping Officer Goal (LTG) Improve right knee AROM to 0- 120 LTG Duration 8 wks Assessment Summary Assessment right knee PROM to 130, active 123. Extension passive 0, active -5 Physical Therapy Plan Frequency and Duration Frequency of Treatment 2x/Week Duration of Treatment 8 wks Plan of Care Start Date 11/10/18 Plan of Care End Date 01/10/19 Therapeutic Interventions Therapeutic Interventions Aquatic Therapy Gait Training Home Exercise Program Manual Therapy Neuromuscular Re-education Patient/Caregiver Education Self-Care/Home Management Soft Tissue Mobilization Taping Therapeutic Activities Therapeutic Exercises Modalities Cold Pack/Ice Massage Electric Stimulation Next Visit Focus/Plan Next Note Type Treatment Note Next Visit Plan Continue TKA rehab, progress strengthening, add squats, 1- 2# ankle weights with SAQ
--- NOTE | 2018-12-02 11:09 | PT.OTN ---
Current Diagnoses Other chronic pain (12/02/18) Unilateral primary osteoarthritis, right knee (12/02/18) Pain in right knee (12/02/18) Physical Therapy Treatment Note PT-OP-A Visit Information Start: 11/10/18 14:05 Freq: Status: Active Protocol: Document 12/02/18 08:17 [facility]AK (Rec: 12/02/18 08:59 [facility] [id number]) Out-Patient Physical Therapy Visit Information Visit Information Visit Type Treatment Note Visit Start Time 08:15 Visit Stop Time 09:10 Total Visit Minutes 55 Visit Number 9 Number of PROGRAM THERAPIST Visits 0 Evaluation Information Evaluation Date 11/10/18 Precautions Precautions WBAT right LE PT-OP-B Current Condition Start: 11/10/18 14:05 Freq: Status: Active Protocol: Document 11/10/18 15:14 [facility]AK (Rec: 11/10/18 15:25 [facility] [id number]) Current Condition History of Current Condition Onset Date 11/05/18 Current Complaints weakness, decreased ROM, swelling right knee History of Current Condition right TKA by Dr. Coley. Discharged home day after surgery. No stairs at home. Does have shower chair. No grab bars due to not wanting to drill into tile. Taking Tylenol 100mg 3x/day and Oxycodone 5mg PRN (reports taking prior to exercises, and took prior to PT today) Prior Treatments and Tests right CARLA Treatment Goals Patient/Caregiver Goals Return to dancing, taking walks Prior Functional Status Baseline Function- ADL's Independent Baseline Function- Mobility Independent Baseline Function- Gait independent, no device Baseline Function- Work/School retired Baseline Function- Recreation/Hobbies dancing 1-2x/wk, taking long walks Current Functional Impairments (Reported) Functional Limitations- ADL's painful, some assist from Functional Limitations- Mobility/Gait short distance FWW for gait uses left LE to lift right LE in and out of bed 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 PT-OP-C Subjective Start: 11/10/18 14:05 Freq: Status: Active Protocol: Document 12/02/18 08:17 SAK (Rec: 12/02/18 08:59 [facility] [id number]) OP-PT Subjective Patient Comments Patient Comments spent 12 hr away from [place] T[place] ice pack as recommended. Bad night last night, more swollen today. PT-OP-G Mobility & Gait Start: 11/10/18 14:05 Freq: Status: Active Protocol: Document 11/10/18 15:14 [facility] (Rec: 11/11/18 08:52 [facility] [id number]) OP Mobility Evaluation Bed Mobility Supine to and from Sit uses left LE to move right LE Transfers Sit to Stand independent with use of UE's and decreased weight-bearing right LE OP Gait Assessment Gait Gait Assistance Required: Standby Assistance Distance (Feet) 50 Assistive Devices Assistive Device Front Wheeled Walker Gait Deviations General Gait Pattern Antalgic Decreased Stride Length Decreased Feet Clearance Flexed Trunk Factors Limiting Gait Function Factors Limiting Gait Function Decreased Strength Limited Range of Motion Pain Stair Climbing Evaluation Comments Stair Climbing Comments not assessed today. PT-OP-J Posture/Palpation/Skin Start: 11/10/18 14:05 Freq: Status: Active Protocol: Document 11/10/18 15:14 [facility] (Rec: 11/11/18 08:52 [facility] [id number]) Palpation Assessment Location right knee Palpation Findings Edema Soft Tissue Tightness Muscle Guarding Tenderness Palpation Details mild increase in warmth right knee. Skin Assessment Edema Assessment right knee Edema Degree 2+ Edema Appearance Puffy Subjective Edema Description Pain Tightness PT-OP-K Range of Motion Start: 11/10/18 14:05 Freq: Status: Active Protocol: Document 11/10/18 15:14 [facility] (Rec: 11/11/18 08:52 [facility] [id number]) Knee Goniometric Range of Motion Knee Measured in Degrees Right Flexion Active (degrees) 85 Flexion Passive (degrees) 92 Extension Active (degrees) 27 Extension Passive (degrees) 12 Left Flexion Active (degrees) 130 Extension Active (degrees) 0 Knee ROM Limitations Knee ROM Limitations Soft Tissue Tightness Muscle Weakness Pain Swelling PT-OP-M Strength Start: 11/10/18 14:05 Freq: Status: Active Protocol: Document 11/10/18 15:14 [facility] (Rec: 11/11/18 08:52 [facility] [id number]) Knee Strength Knee Manual Muscle Testing Right Comments independent SAQ within available ROM, SLR requires use of UE's with strap. Patient requires use of left LE to move right LE on and off bed Left Flexion (S2) 5 Normal Extension (L3) 5 Normal Ankle/Foot Strength Ankle and Foot Manual Muscle Testing mike Dorsiflexion (L4) 5 Normal Plantarflexion (S1) 5 Normal PT-OP-Q Treatments Start: 11/10/18 14:05 Freq: Status: Active Protocol: Document 12/02/18 08:17 [facility] (Rec: 12/02/18 08:59 [facility] [id number]) Cardio Equipment Recumbent Elliptical (Biodex) Duration (Minutes) 5 Resistance 2 Seat Position 8 Bicycle (Upright) Duration (Minutes) 10 Resistance 2 Seat Position 5-4 Therapeutic Exercises Standing Exercises squats Comments verbal instruction to use theraband around thighs, emphasize alignment Gait Training Gait Activity stairs Description hallway stairs Level of Assistance verbal cues Distance/Duration 24 stairs Comments 4 stairs alternating pattern. level surface Level of Assistance SBA, verbal cues Treatment Focus Weight shift left and pelvic lateral shift. Manual Therapy Treatment Soft Tissue Mobilization TKA scar Mobilization Type Rolling Strumming Intensity/Depth Moderate quads, hamstrings Body Location right quad, HS Mobilization Type Rolling Strumming Intensity/Depth mod Body Position Hooklying Joint Mobilizations R Patella Joint R patella Direction super>infer, med>lateral PT-OP-R Modalities Start: 11/10/18 14:05 Freq: Status: Active Protocol: Document 12/02/18 08:17 [facility] (Rec: 12/02/18 08:59 [facility] [id number]) Electric Stimulation Electric Stimulation Interferential Current (IFC) Body Location right knee Duration (Minutes) 12 Intensity 18 Target/Sweep Sweep Patient Position Hooklying Combined With Heat/Cold Cold Pack Comments right LE elevated with wedge, bolster, and pillow PT-OP-T Assessment and Plan Start: 11/10/18 14:05 Freq: Status: Active Protocol: Document 12/02/18 08:17 [facility] (Rec: 12/02/18 08:59 [facility] [id number]) Physical Therapy Assessment Goals 4 Impairment lacking HEP to address functional LE strength and ROM impairments Short Term Goal (STG) Progress HEP as tolerated to include functional, closed chain ex STG Duration 4 wks Linux Systems Administrator Goal (LTG) Patient to be independent and compliant with HEP LTG Duration 8 wks 3 Impairment pain right knee 5-8/10 Short Term Goal (STG) decrease pain to no greater than 4/10 STG Duration 4 wks Linux Systems Administrator Goal (LTG) decrease pain to no greater than 1-2/10 LTG Duration 8 wks 2 Impairment Antalgic gait using FWW Short Term Goal (STG) Patient able to ambulate with SPC with min to no limp on level surfaces and stairs STG Duration 4 wks Fdc Goal (LTG) Patient able to ambulate without assistive device with no limp on level and uneven surfaces LTG Duration 8 wks 1 Impairment right knee AROM 27-85 Short Term Goal (STG) Improve right knee AROM to 5- 110 STG Duration 4 wks Linux Systems Administrator Goal (LTG) Improve right knee AROM to 0- 120 LTG Duration 8 wks Assessment Summary Assessment Improved muscular control on stairs. Increased time spent on scar mobilization, patellar mobilization, and soft tissue work to quads and hamstrings today. Physical Therapy Plan Frequency and Duration Frequency of Treatment 2x/Week Duration of Treatment 8 wks Plan of Care Start Date 11/10/18 Plan of Care End Date 01/10/19 Therapeutic Interventions Therapeutic Interventions Aquatic Therapy Gait Training Home Exercise Program Manual Therapy Neuromuscular Re-education Patient/Caregiver Education Self-Care/Home Management Soft Tissue Mobilization Taping Therapeutic Activities Therapeutic Exercises Modalities Cold Pack/Ice Massage Electric Stimulation Next Visit Focus/Plan Next Note Type Progress Note Next Visit Plan Emphasis on neutral LE alignment, functional strengthening and gait.
--- NOTE | 2018-12-06 16:34 | PT.OTN ---
Current Diagnoses Other chronic pain (12/06/18) Unilateral primary osteoarthritis, right knee (12/06/18) Pain in right knee (12/06/18) Physical Therapy Treatment Note PT-OP-A Visit Information Start: 11/10/18 14:05 Freq: Status: Active Protocol: Document 12/06/18 09:05 SAK (Rec: 12/06/18 09:51 [facility] [id number]) Out-Patient Physical Therapy Visit Information Visit Information Visit Type Treatment Note Visit Start Time 09:00 Visit Stop Time 09:57 Total Visit Minutes 57 Visit Number 10 Number of HYDROLOGICAL TECHNICAL OFFICER Visits 0 Evaluation Information Evaluation Date 11/10/18 Precautions Precautions WBAT right LE PT-OP-B Current Condition Start: 11/10/18 14:05 Freq: Status: Active Protocol: Document 11/10/18 15:14 SAK (Rec: 11/10/18 15:25 [facility] [id number]) Current Condition History of Current Condition Onset Date 11/05/18 Current Complaints weakness, decreased ROM, swelling right knee History of Current Condition right TKA by Dr. Coley. Discharged home day after surgery. No stairs at home. Does have shower chair. No grab bars due to not wanting to drill into tile. Taking Tylenol 100mg 3x/day and Oxycodone 5mg PRN (reports taking prior to exercises, and took prior to PT today) Prior Treatments and Tests right CARLA Treatment Goals Patient/Caregiver Goals Return to dancing, taking walks Prior Functional Status Baseline Function- ADL's Independent Baseline Function- Mobility Independent Baseline Function- Gait independent, no device Baseline Function- Work/School retired Baseline Function- Recreation/Hobbies dancing 1-2x/wk, taking long walks Current Functional Impairments (Reported) Functional Limitations- ADL's painful, some assist from Functional Limitations- Mobility/Gait short distance FWW for gait uses left LE to lift right LE in and out of bed 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 PT-OP-C Subjective Start: 11/10/18 14:05 Freq: Status: Active Protocol: Document 12/06/18 09:05 CANDIDA (Rec: 12/06/18 09:51 [facility] [id number]) OP-PT Subjective Patient Comments Patient Comments Did 3 waltzes with good tolerance 11/29/18. Yesterday sat too long and was very sore , taking 1 1/2 pills per day PT-OP-G Mobility & Gait Start: 11/10/18 14:05 Freq: Status: Active Protocol: Document 11/10/18 15:14 [facility] (Rec: 11/11/18 08:52 [facility] [id number]) OP Mobility Evaluation Bed Mobility Supine to and from Sit uses left LE to move right LE Transfers Sit to Stand independent with use of UE's and decreased weight-bearing right LE OP Gait Assessment Gait Gait Assistance Required: Standby Assistance Distance (Feet) 50 Assistive Devices Assistive Device Front Wheeled Walker Gait Deviations General Gait Pattern Antalgic Decreased Stride Length Decreased Feet Clearance Flexed Trunk Factors Limiting Gait Function Factors Limiting Gait Function Decreased Strength Limited Range of Motion Pain Stair Climbing Evaluation Comments Stair Climbing Comments not assessed today. PT-OP-J Posture/Palpation/Skin Start: 11/10/18 14:05 Freq: Status: Active Protocol: Document 11/10/18 15:14 [facility] (Rec: 11/11/18 08:52 [facility] [id number]) Palpation Assessment Location right knee Palpation Findings Edema Soft Tissue Tightness Muscle Guarding Tenderness Palpation Details mild increase in warmth right knee. Skin Assessment Edema Assessment right knee Edema Degree 2+ Edema Appearance Puffy Subjective Edema Description Pain Tightness PT-OP-K Range of Motion Start: 11/10/18 14:05 Freq: Status: Active Protocol: Document 11/10/18 15:14 [facility] (Rec: 11/11/18 08:52 [facility] [id number]) Knee Goniometric Range of Motion Knee Measured in Degrees Right Flexion Active (degrees) 85 Flexion Passive (degrees) 92 Extension Active (degrees) 27 Extension Passive (degrees) 12 Left Flexion Active (degrees) 130 Extension Active (degrees) 0 Knee ROM Limitations Knee ROM Limitations Soft Tissue Tightness Muscle Weakness Pain Swelling PT-OP-M Strength Start: 11/10/18 14:05 Freq: Status: Active Protocol: Document 11/10/18 15:14 [facility] (Rec: 11/11/18 08:52 [facility] [id number]) Knee Strength Knee Manual Muscle Testing Right Comments independent SAQ within available ROM, SLR requires use of UE's with strap. Patient requires use of left LE to move right LE on and off bed Left Flexion (S2) 5 Normal Extension (L3) 5 Normal Ankle/Foot Strength Ankle and Foot Manual Muscle Testing mike Dorsiflexion (L4) 5 Normal Plantarflexion (S1) 5 Normal PT-OP-Q Treatments Start: 11/10/18 14:05 Freq: Status: Active Protocol: Document 12/06/18 09:05 [facility] (Rec: 12/06/18 09:51 [facility] [id number]) Cardio Equipment Recumbent Elliptical (Biodex) Duration (Minutes) 6 Resistance 2 Seat Position 8 Bicycle (Upright) Duration (Minutes) 10 Resistance 2 Seat Position 5-4 Gym Equipment Shuttle Recovery Unilateral Squats Resistance 37 mike Shuttle Recovery Platform Stable Reps/Time 1x10 Bilateral Squats Resistance 75 Shuttle Recovery Platform Stable Reps/Time 30x Therapeutic Exercises Supine Exercises quad set Side right Reps/Minutes towel roll under ankle Comments 10x gravity assisted knee flex Reps/Minutes 2x Comments slider sheet Standing Exercises resisted walking Standing Exercise Name side, fwd,bck Equipment Used yellow TB squats Resistance L1 TB distal thighs Comments verbal instruction to use theraband around thighs, emphasize alignment knee extension Resistance L2 TB Reps/Minutes 10x HC stretch Reps/Minutes 30 x 2 Comments JULIAN Other Exercises foam stand Equipment Used blue foam Comments tandem EO , WBOS with EC Manual Therapy Treatment Soft Tissue Mobilization TKA scar Mobilization Type Rolling Strumming Intensity/Depth Moderate quads, hamstrings Body Location right quad, HS Mobilization Type Rolling Strumming Intensity/Depth mod Body Position Hooklying Joint Mobilizations R Patella Joint R patella Direction super>infer, med>lateral PT-OP-R Modalities Start: 11/10/18 14:05 Freq: Status: Active Protocol: Document 12/06/18 09:05 [facility] (Rec: 12/06/18 09:51 [facility] [id number]) Electric Stimulation Electric Stimulation Interferential Current (IFC) Body Location right knee Duration (Minutes) 12 Intensity 18 Target/Sweep Sweep Patient Position Hooklying Combined With Heat/Cold Cold Pack Comments right LE elevated with wedge, bolster, and pillow PT-OP-T Assessment and Plan Start: 11/10/18 14:05 Freq: Status: Active Protocol: Document 12/06/18 09:05 [facility] (Rec: 12/06/18 09:51 [facility] [id number]) Physical Therapy Assessment Goals 4 Impairment lacking HEP to address functional LE strength and ROM impairments Short Term Goal (STG) Progress HEP as tolerated to include functional, closed chain ex STG Duration MET Residential Goal (LTG) Patient to be independent and compliant with HEP (12/06/18good goal progress, ongoing progression) LTG Duration 8 wks 3 Impairment pain right knee 5-8/10 Short Term Goal (STG) decrease pain to no greater than 4/10 12/06/18: goal progress STG Duration 4 wks Residential Goal (LTG) decrease pain to no greater than 1-2/10 12/06/18: goal progress LTG Duration 8 wks 2 Impairment Antalgic gait using FWW Short Term Goal (STG) Patient able to ambulate with SPC with min to no limp on level surfaces and stairs STG Duration MET [facility]idential Goal (LTG) Patient able to ambulate without assistive device with no limp on level and uneven surfaces 12/06/18: good goal progress LTG Duration 8 wks 1 Impairment right knee AROM 27-85 Short Term Goal (STG) Improve right knee AROM to 5- 110 12/06/18: good goal progress 8- 130 STG Duration 4 wks Residential Goal (LTG) Improve right knee AROM to 0- 120 12/06/18: good goal progress 8- 130 LTG Duration 8 wks Physical Therapy Plan Frequency and Duration Frequency of Treatment 2x/Week Duration of Treatment 8 wks Plan of Care Start Date 11/10/18 Plan of Care End Date 01/10/19 Therapeutic Interventions Therapeutic Interventions Aquatic Therapy Gait Training Home Exercise Program Manual Therapy Neuromuscular Re-education Patient/Caregiver Education Self-Care/Home Management Soft Tissue Mobilization Taping Therapeutic Activities Therapeutic Exercises Modalities Cold Pack/Ice Massage Electric Stimulation Next Visit Focus/Plan Next Note Type Progress Note Next Visit Plan Excellent knee flex ROM, has not emphasized ext ROM at home as much. Encouraged increased emphasis on quad set with towel roll under ankle
--- NOTE | 2018-12-09 14:03 | PT.OTN ---
Current Diagnoses Other chronic pain (12/09/18) Unilateral primary osteoarthritis, right knee (12/09/18) Pain in right knee (12/09/18) Physical Therapy Treatment Note PT-OP-A Visit Information Start: 11/10/18 14:05 Freq: Status: Active Protocol: Document 12/09/18 11:25 SAK (Rec: 12/09/18 13:54 [facility] [id number]) Out-Patient Physical Therapy Visit Information Visit Information Visit Type Treatment Note Visit Start Time 11:13 Visit Stop Time 12:07 Total Visit Minutes 57 Visit Number 11 Number of RAILCAR BRAKE OPERATOR Visits 0 Evaluation Information Evaluation Date 11/10/18 Precautions Precautions WBAT right LE PT-OP-B Current Condition Start: 11/10/18 14:05 Freq: Status: Active Protocol: Document 11/10/18 15:14 SAK (Rec: 11/10/18 15:25 [facility] [id number]) Current Condition History of Current Condition Onset Date 11/05/18 Current Complaints weakness, decreased ROM, swelling right knee History of Current Condition right TKA by Dr. Coley. Discharged home day after surgery. No stairs at home. Does have shower chair. No grab bars due to not wanting to drill into tile. Taking Tylenol 100mg 3x/day and Oxycodone 5mg PRN (reports taking prior to exercises, and took prior to PT today) Prior Treatments and Tests right CARLA Treatment Goals Patient/Caregiver Goals Return to dancing, taking walks Prior Functional Status Baseline Function- ADL's Independent Baseline Function- Mobility Independent Baseline Function- Gait independent, no device Baseline Function- Work/School retired Baseline Function- Recreation/Hobbies dancing 1-2x/wk, taking long walks Current Functional Impairments (Reported) Functional Limitations- ADL's painful, some assist from Functional Limitations- Mobility/Gait short distance FWW for gait uses left LE to lift right LE in and out of bed 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 PT-OP-C Subjective Start: 11/10/18 14:05 Freq: Status: Active Protocol: Document 12/09/18 11:25 SAK (Rec: 12/09/18 12:10 [facility] [id number]) OP-PT Subjective Patient Comments Patient Comments Stopped taking pain medication 10/08/18. No change in pain; has left message with physician for alternative medication for pain and swelling. Having some pain down her right leg; lateral right ankle tingling; tingling for quite awhile, lateral thigh pain just yesterday, started while sitting in recliner. PT-OP-G Mobility & Gait Start: 11/10/18 14:05 Freq: Status: Active Protocol: Document 11/10/18 15:14 [facility] (Rec: 11/11/18 08:52 [facility] [id number]) OP Mobility Evaluation Bed Mobility Supine to and from Sit uses left LE to move right LE Transfers Sit to Stand independent with use of UE's and decreased weight-bearing right LE OP Gait Assessment Gait Gait Assistance Required: Standby Assistance Distance (Feet) 50 Assistive Devices Assistive Device Front Wheeled Walker Gait Deviations General Gait Pattern Antalgic Decreased Stride Length Decreased Feet Clearance Flexed Trunk Factors Limiting Gait Function Factors Limiting Gait Function Decreased Strength Limited Range of Motion Pain Stair Climbing Evaluation Comments Stair Climbing Comments not assessed today. PT-OP-J Posture/Palpation/Skin Start: 11/10/18 14:05 Freq: Status: Active Protocol: Document 11/10/18 15:14 [facility] (Rec: 11/11/18 08:52 [facility] [id number]) Palpation Assessment Location right knee Palpation Findings Edema Soft Tissue Tightness Muscle Guarding Tenderness Palpation Details mild increase in warmth right knee. Skin Assessment Edema Assessment right knee Edema Degree 2+ Edema Appearance Puffy Subjective Edema Description Pain Tightness PT-OP-K Range of Motion Start: 11/10/18 14:05 Freq: Status: Active Protocol: Document 11/10/18 15:14 [facility] (Rec: 11/11/18 08:52 [facility] [id number]) Knee Goniometric Range of Motion Knee Measured in Degrees Right Flexion Active (degrees) 85 Flexion Passive (degrees) 92 Extension Active (degrees) 27 Extension Passive (degrees) 12 Left Flexion Active (degrees) 130 Extension Active (degrees) 0 Knee ROM Limitations Knee ROM Limitations Soft Tissue Tightness Muscle Weakness Pain Swelling PT-OP-M Strength Start: 11/10/18 14:05 Freq: Status: Active Protocol: Document 11/10/18 15:14 [facility] (Rec: 11/11/18 08:52 [facility] [id number]) Knee Strength Knee Manual Muscle Testing Right Comments independent SAQ within available ROM, SLR requires use of UE's with strap. Patient requires use of left LE to move right LE on and off bed Left Flexion (S2) 5 Normal Extension (L3) 5 Normal Ankle/Foot Strength Ankle and Foot Manual Muscle Testing mike Dorsiflexion (L4) 5 Normal Plantarflexion (S1) 5 Normal PT-OP-Q Treatments Start: 11/10/18 14:05 Freq: Status: Active Protocol: Document 12/09/18 11:25 [facility] (Rec: 12/09/18 14:03 [facility] [id number]) Cardio Equipment Recumbent Elliptical (Biodex) Duration (Minutes) 5 Resistance 2 Seat Position 8 Other emphasis on neutral LE alignment Bicycle (Upright) Duration (Minutes) 10 Resistance 2 Seat Position 5-4 Other emphasis on neutral LE alignment Therapeutic Exercises Supine Exercises SLR Reps/Minutes 10x bridge Reps/Minutes 10x SAQ Reps/Minutes 10x quad set Side right Reps/Minutes alternating wit heelslide, manual overpressure Comments 15x Sidelying Exercises hip abd Reps/Minutes 10x clamshell Reps/Minutes 10x Gait Training Gait Activity level surface Level of Assistance SBA, verbal cues Treatment Focus Weight shift left and pelvic lateral shift. Manual Therapy Treatment Soft Tissue Mobilization TKA scar Mobilization Type Rolling Strumming Intensity/Depth Moderate quads, hamstrings Body Location right quad, HS Mobilization Type Rolling Strumming Intensity/Depth mod Body Position Hooklying PT-OP-R Modalities Start: 11/10/18 14:05 Freq: Status: Active Protocol: Document 12/09/18 11:25 [facility] (Rec: 12/09/18 12:10 [facility] [id number]) Electric Stimulation Electric Stimulation Interferential Current (IFC) Body Location right knee Duration (Minutes) 12 Intensity 18 Target/Sweep Sweep Patient Position Hooklying Combined With Heat/Cold Cold Pack Comments right LE elevated with wedge, bolster, and pillow PT-OP-T Assessment and Plan Start: 11/10/18 14:05 Freq: Status: Active Protocol: Document 12/09/18 11:25 [facility] (Rec: 12/09/18 12:10 [facility] [id number]) Physical Therapy Assessment Goals 4 Impairment lacking HEP to address functional LE strength and ROM impairments Short Term Goal (STG) Progress HEP as tolerated to include functional, closed chain ex STG Duration MET Engagement Manager Goal (LTG) Patient to be independent and compliant with HEP (12/06/18good goal progress, ongoing progression) LTG Duration 8 wks 3 Impairment pain right knee 5-8/10 Short Term Goal (STG) decrease pain to no greater than 4/10 12/06/18: goal progress STG Duration 4 wks Engagement Manager Goal (LTG) decrease pain to no greater than 1-2/10 12/06/18: goal progress LTG Duration 8 wks 2 Impairment Antalgic gait using FWW Short Term Goal (STG) Patient able to ambulate with SPC with min to no limp on level surfaces and stairs STG Duration [facility] Goal (LTG) Patient able to ambulate without assistive device with no limp on level and uneven surfaces 12/06/18: good goal progress LTG Duration 8 wks 1 Impairment right knee AROM 27-85 Short Term Goal (STG) Improve right knee AROM to 5- 110 12/06/18: good goal progress 8- 130 STG Duration 4 wks Engagement Manager Goal (LTG) Improve right knee AROM to 0- 120 12/06/18: good goal progress 8- 130 LTG Duration 8 wks Assessment Summary Assessment Feel hip weakness contributing to back, thigh and foot symptoms. Issued updated HEP, will need to continue further core strengthening to support LE function. Improved knee extension ROM with alternating heelslide and quad set Physical Therapy Plan Frequency and Duration Frequency of Treatment 2x/Week Duration of Treatment 8 wks Plan of Care Start Date 11/10/18 Plan of Care End Date 01/10/19 Therapeutic Interventions Therapeutic Interventions Aquatic Therapy Gait Training Home Exercise Program Manual Therapy Neuromuscular Re-education Patient/Caregiver Education Self-Care/Home Management Soft Tissue Mobilization Taping Therapeutic Activities Therapeutic Exercises Modalities Cold Pack/Ice Massage Electric Stimulation Next Visit Focus/Plan Next Note Type Progress Note Next Visit Plan Continue PT to progress knee extension ROM, strengthening of knees hips and core for improved biomechanics and decreased pain.
--- NOTE | 2018-12-13 14:54 | PT.OTN ---
Current Diagnoses Other chronic pain (12/13/18) Unilateral primary osteoarthritis, right knee (12/13/18) Pain in right knee (12/13/18) Physical Therapy Treatment Note PT-OP-A Visit Information Start: 11/10/18 14:05 Freq: Status: Active Protocol: Document 12/13/18 09:04 SAK (Rec: 12/13/18 09:48 [facility] [id number]) Out-Patient Physical Therapy Visit Information Visit Information Visit Type Treatment Note Visit Start Time 09:00 Visit Stop Time 09:55 Total Visit Minutes 55 Visit Number 12 Number of WATER TANKER DRIVER Visits 0 Evaluation Information Evaluation Date 11/10/18 Precautions Precautions WBAT right LE PT-OP-B Current Condition Start: 11/10/18 14:05 Freq: Status: Active Protocol: Document 11/10/18 15:14 SAK (Rec: 11/10/18 15:25 [facility] [id number]) Current Condition History of Current Condition Onset Date 11/05/18 Current Complaints weakness, decreased ROM, swelling right knee History of Current Condition right TKA by Dr. Coley. Discharged home day after surgery. No stairs at home. Does have shower chair. No grab bars due to not wanting to drill into tile. Taking Tylenol 100mg 3x/day and Oxycodone 5mg PRN (reports taking prior to exercises, and took prior to PT today) Prior Treatments and Tests right CARLA Treatment Goals Patient/Caregiver Goals Return to dancing, taking walks Prior Functional Status Baseline Function- ADL's Independent Baseline Function- Mobility Independent Baseline Function- Gait independent, no device Baseline Function- Work/School retired Baseline Function- Recreation/Hobbies dancing 1-2x/wk, taking long walks Current Functional Impairments (Reported) Functional Limitations- ADL's painful, some assist from Functional Limitations- Mobility/Gait short distance FWW for gait uses left LE to lift right LE in and out of bed 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 PT-OP-C Subjective Start: 11/10/18 14:05 Freq: Status: Active Protocol: Document 12/13/18 09:04 CANDIDA (Rec: 12/13/18 09:48 [facility] [id number]) OP-PT Subjective Patient Comments Patient Comments Contacted her doctor and had blood work done 12/10/18 due to continued concern over pain level, had to take a pain pill yesterday afternoon; states in afternoon her pain really increases despite use of ice, elevaton, rest. Sees surgeon tomorrow. PT-OP-G Mobility & Gait Start: 11/10/18 14:05 Freq: Status: Active Protocol: Document 11/10/18 15:14 [facility] (Rec: 11/11/18 08:52 [facility] [id number]) OP Mobility Evaluation Bed Mobility Supine to and from Sit uses left LE to move right LE Transfers Sit to Stand independent with use of UE's and decreased weight-bearing right LE OP Gait Assessment Gait Gait Assistance Required: Standby Assistance Distance (Feet) 50 Assistive Devices Assistive Device Front Wheeled Walker Gait Deviations General Gait Pattern Antalgic Decreased Stride Length Decreased Feet Clearance Flexed Trunk Factors Limiting Gait Function Factors Limiting Gait Function Decreased Strength Limited Range of Motion Pain Stair Climbing Evaluation Comments Stair Climbing Comments not assessed today. PT-OP-J Posture/Palpation/Skin Start: 11/10/18 14:05 Freq: Status: Active Protocol: Document 11/10/18 15:14 [facility] (Rec: 11/11/18 08:52 [facility] [id number]) Palpation Assessment Location right knee Palpation Findings Edema Soft Tissue Tightness Muscle Guarding Tenderness Palpation Details mild increase in warmth right knee. Skin Assessment Edema Assessment right knee Edema Degree 2+ Edema Appearance Puffy Subjective Edema Description Pain Tightness PT-OP-K Range of Motion Start: 11/10/18 14:05 Freq: Status: Active Protocol: Document 11/10/18 15:14 [facility] (Rec: 11/11/18 08:52 [facility] [id number]) Knee Goniometric Range of Motion Knee Measured in Degrees Right Flexion Active (degrees) 85 Flexion Passive (degrees) 92 Extension Active (degrees) 27 Extension Passive (degrees) 12 Left Flexion Active (degrees) 130 Extension Active (degrees) 0 Knee ROM Limitations Knee ROM Limitations Soft Tissue Tightness Muscle Weakness Pain Swelling PT-OP-M Strength Start: 11/10/18 14:05 Freq: Status: Active Protocol: Document 11/10/18 15:14 [facility] (Rec: 11/11/18 08:52 [facility] [id number]) Knee Strength Knee Manual Muscle Testing Right Comments independent SAQ within available ROM, SLR requires use of UE's with strap. Patient requires use of left LE to move right LE on and off bed Left Flexion (S2) 5 Normal Extension (L3) 5 Normal Ankle/Foot Strength Ankle and Foot Manual Muscle Testing mike Dorsiflexion (L4) 5 Normal Plantarflexion (S1) 5 Normal PT-OP-Q Treatments Start: 11/10/18 14:05 Freq: Status: Active Protocol: Document 12/13/18 09:04 [facility] (Rec: 12/13/18 09:48 [facility] [id number]) Cardio Equipment Recumbent Elliptical (Biodex) Duration (Minutes) 6 Resistance 2 Seat Position 8 Other emphasis on neutral LE alignment Bicycle (Upright) Duration (Minutes) 6 Resistance 2 Seat Position 5 Other emphasis on neutral LE alignment Therapeutic Exercises Supine Exercises quad set Side right Reps/Minutes alternating wit heelslide, manual overpressure Comments 15x Sidelying Exercises hip abd Reps/Minutes 10x clamshell Reps/Minutes 10x Standing Exercises knee extension Resistance L2 TB Reps/Minutes 10x HC stretch Reps/Minutes 30 x 2 Comments JULIAN Manual Therapy Treatment Soft Tissue Mobilization IT band Mobilization Type Rolling Strumming Body Position Sidelying TKA scar Mobilization Type Rolling Strumming Intensity/Depth Moderate quads, hamstrings Body Location right quad, HS, gastroc Mobilization Type Rolling Strumming Intensity/Depth mod Body Position Hooklying Joint Mobilizations R Patella Joint R patella Direction super>infer, med>lateral PT-OP-R Modalities Start: 11/10/18 14:05 Freq: Status: Active Protocol: Document 12/13/18 09:04 [facility] (Rec: 12/13/18 09:48 [facility] [id number]) Electric Stimulation Electric Stimulation Interferential Current (IFC) Body Location right knee Duration (Minutes) 12 Intensity 18 Target/Sweep Sweep Patient Position Hooklying Combined With Heat/Cold Cold Pack Comments right LE elevated with wedge, bolster, and pillow PT-OP-T Assessment and Plan Start: 11/10/18 14:05 Freq: Status: Active Protocol: Document 12/13/18 09:04 [facility] (Rec: 12/13/18 09:48 [facility] [id number]) Physical Therapy Assessment Goals 4 Impairment lacking HEP to address functional LE strength and ROM impairments Short Term Goal (STG) Progress HEP as tolerated to include functional, closed chain ex STG Duration MET [facility] Goal (LTG) Patient to be independent and compliant with HEP (12/06/18good goal progress, ongoing progression) LTG Duration 8 wks 3 Impairment pain right knee 5-8/10 Short Term Goal (STG) decrease pain to no greater than 4/10 12/06/18: goal progress STG Duration 4 wks Penitentiary Goal (LTG) decrease pain to no greater than 1-2/10 12/06/18: goal progress LTG Duration 8 wks 2 Impairment Antalgic gait using FWW Short Term Goal (STG) Patient able to ambulate with SPC with min to no limp on level surfaces and stairs STG Duration [facility] Goal (LTG) Patient able to ambulate without assistive device with no limp on level and uneven surfaces 12/06/18: good goal progress LTG Duration 8 wks 1 Impairment right knee AROM 27-85 Short Term Goal (STG) Improve right knee AROM to 5- 110 12/06/18: good goal progress 8- 130 STG Duration 4 wks Lab Intern Goal (LTG) Improve right knee AROM to 0- 120 12/06/18: good goal progress 8- 130 LTG Duration 8 wks Assessment Summary Assessment Improving right knee flex; complicated by patient need to put pillow under knee at night for comfort to sleep. Today's treatment focused more on manual therapy to right LE musculature and scar as well as emphasis on core stab with ex. Physical Therapy Plan Frequency and Duration Frequency of Treatment 2x/Week Duration of Treatment 8 wks Plan of Care Start Date 11/10/18 Plan of Care End Date 01/10/19 Therapeutic Interventions Therapeutic Interventions Aquatic Therapy Gait Training Home Exercise Program Manual Therapy Neuromuscular Re-education Patient/Caregiver Education Self-Care/Home Management Soft Tissue Mobilization Taping Therapeutic Activities Therapeutic Exercises Modalities Cold Pack/Ice Massage Electric Stimulation Next Visit Focus/Plan Next Note Type Treatment Note Next Visit Plan Continue PT pending recommendations from physician .
--- NOTE | 2018-12-16 16:17 | PT.OTN ---
Current Diagnoses Other chronic pain (12/16/18) Unilateral primary osteoarthritis, right knee (12/16/18) Pain in right knee (12/16/18) Physical Therapy Treatment Note PT-OP-A Visit Information Start: 11/10/18 14:05 Freq: Status: Active Protocol: Document 12/16/18 16:11 SAK (Rec: 12/16/18 16:17 [facility] [id number]) Out-Patient Physical Therapy Visit Information Visit Information Visit Type Treatment Note Visit Start Time 09:00 Visit Stop Time 09:55 Total Visit Minutes 55 Visit Number 13 Number of GEOTHERMAL OPERATIONS ENGINEER Visits 0 Evaluation Information Evaluation Date 11/10/18 Precautions Precautions WBAT right LE PT-OP-B Current Condition Start: 11/10/18 14:05 Freq: Status: Active Protocol: Document 11/10/18 15:14 [facility] (Rec: 11/10/18 15:25 [facility] [id number]) Current Condition History of Current Condition Onset Date 11/05/18 Current Complaints weakness, decreased ROM, swelling right knee History of Current Condition right TKA by Dr. Coley. Discharged home day after surgery. No stairs at home. Does have shower chair. No grab bars due to not wanting to drill into tile. Taking Tylenol 100mg 3x/day and Oxycodone 5mg PRN (reports taking prior to exercises, and took prior to PT today) Prior Treatments and Tests right CARLA Treatment Goals Patient/Caregiver Goals Return to dancing, taking walks Prior Functional Status Baseline Function- ADL's Independent Baseline Function- Mobility Independent Baseline Function- Gait independent, no device Baseline Function- Work/School retired Baseline Function- Recreation/Hobbies dancing 1-2x/wk, taking long walks Current Functional Impairments (Reported) Functional Limitations- ADL's painful, some assist from Functional Limitations- Mobility/Gait short distance FWW for gait uses left LE to lift right LE in and out of bed 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 PT-OP-C Subjective Start: 11/10/18 14:05 Freq: Status: Active Protocol: Document 12/16/18 16:11 [facility] (Rec: 12/16/18 16:17 [facility] [id number]) OP-PT Subjective Patient Comments Patient Comments Patient reports physician advised her to use ice and Tylenol, return in 6 months. X-ray showed good alignment and healing. PT-OP-G Mobility & Gait Start: 11/10/18 14:05 Freq: Status: Active Protocol: Document 11/10/18 15:14 [facility] (Rec: 11/11/18 08:52 [facility] [id number]) OP Mobility Evaluation Bed Mobility Supine to and from Sit uses left LE to move right LE Transfers Sit to Stand independent with use of UE's and decreased weight-bearing right LE OP Gait Assessment Gait Gait Assistance Required: Standby Assistance Distance (Feet) 50 Assistive Devices Assistive Device Front Wheeled Walker Gait Deviations General Gait Pattern Antalgic Decreased Stride Length Decreased Feet Clearance Flexed Trunk Factors Limiting Gait Function Factors Limiting Gait Function Decreased Strength Limited Range of Motion Pain Stair Climbing Evaluation Comments Stair Climbing Comments not assessed today. PT-OP-J Posture/Palpation/Skin Start: 11/10/18 14:05 Freq: Status: Active Protocol: Document 11/10/18 15:14 [facility] (Rec: 11/11/18 08:52 [facility] [id number]) Palpation Assessment Location right knee Palpation Findings Edema Soft Tissue Tightness Muscle Guarding Tenderness Palpation Details mild increase in warmth right knee. Skin Assessment Edema Assessment right knee Edema Degree 2+ Edema Appearance Puffy Subjective Edema Description Pain Tightness PT-OP-K Range of Motion Start: 11/10/18 14:05 Freq: Status: Active Protocol: Document 11/10/18 15:14 [facility] (Rec: 11/11/18 08:52 [facility] [id number]) Knee Goniometric Range of Motion Knee Measured in Degrees Right Flexion Active (degrees) 85 Flexion Passive (degrees) 92 Extension Active (degrees) 27 Extension Passive (degrees) 12 Left Flexion Active (degrees) 130 Extension Active (degrees) 0 Knee ROM Limitations Knee ROM Limitations Soft Tissue Tightness Muscle Weakness Pain Swelling PT-OP-M Strength Start: 11/10/18 14:05 Freq: Status: Active Protocol: Document 11/10/18 15:14 [facility] (Rec: 11/11/18 08:52 [facility] [id number]) Knee Strength Knee Manual Muscle Testing Right Comments independent SAQ within available ROM, SLR requires use of UE's with strap. Patient requires use of left LE to move right LE on and off bed Left Flexion (S2) 5 Normal Extension (L3) 5 Normal Ankle/Foot Strength Ankle and Foot Manual Muscle Testing mike Dorsiflexion (L4) 5 Normal Plantarflexion (S1) 5 Normal PT-OP-Q Treatments Start: 11/10/18 14:05 Freq: Status: Active Protocol: Document 12/16/18 16:11 [facility] (Rec: 12/16/18 16:17 [facility] [id number]) Cardio Equipment Recumbent Elliptical (Biodex) Duration (Minutes) 6 Resistance 2 Seat Position 8 Other emphasis on neutral LE alignment Bicycle (Upright) Duration (Minutes) 6 Resistance 2 Seat Position 5 Other emphasis on neutral LE alignment Gym Equipment Shuttle Recovery Unilateral Squats Resistance 37 mike Shuttle Recovery Platform Stable Reps/Time 1x10 Bilateral Squats Resistance 75 Shuttle Recovery Platform Stable Reps/Time 30x Therapeutic Exercises Supine Exercises gravity assisted knee flex Reps/Minutes 1x Sitting Exercises knee flex Equipment Used L1 TB Reps/Minutes 10x Comments light resistance Standing Exercises squats Resistance L2 TB distal thighs Comments verbal instruction to use theraband around thighs, emphasize alignment Gait Training Gait Activity stairs Description hallway stairs Level of Assistance verbal cues Distance/Duration 24 stairs Comments 4 stairs alternating pattern. Manual Therapy Treatment Soft Tissue Mobilization IT band Mobilization Type Rolling Strumming Body Position Supine TKA scar Mobilization Type Rolling Strumming Intensity/Depth Moderate quads, hamstrings Body Location right quad, HS, gastroc Mobilization Type Rolling Strumming Intensity/Depth mod Body Position Hooklying PT-OP-R Modalities Start: 11/10/18 14:05 Freq: Status: Active Protocol: Document 12/16/18 16:11 [facility] (Rec: 12/16/18 16:17 [facility] [id number]) Electric Stimulation Electric Stimulation Interferential Current (IFC) Body Location right knee Duration (Minutes) 12 Intensity 18 Target/Sweep Sweep Patient Position Hooklying Combined With Heat/Cold Cold Pack Comments right LE elevated with wedge, bolster, and pillow PT-OP-T Assessment and Plan Start: 11/10/18 14:05 Freq: Status: Active Protocol: Document 12/16/18 16:11 [facility] (Rec: 12/16/18 16:17 [facility] [id number]) Physical Therapy Assessment Goals 4 Impairment lacking HEP to address functional LE strength and ROM impairments Short Term Goal (STG) Progress HEP as tolerated to include functional, closed chain ex STG Duration MET Cork Cutter Goal (LTG) Patient to be independent and compliant with HEP (12/06/18good goal progress, ongoing progression) LTG Duration 8 wks 3 Impairment pain right knee 5-8/10 Short Term Goal (STG) decrease pain to no greater than 4/10 12/06/18: goal progress STG Duration 4 wks Cork Cutter Goal (LTG) decrease pain to no greater than 1-2/10 12/06/18: goal progress LTG Duration 8 wks 2 Impairment Antalgic gait using FWW Short Term Goal (STG) Patient able to ambulate with SPC with min to no limp on level surfaces and stairs STG Duration [facility] Goal (LTG) Patient able to ambulate without assistive device with no limp on level and uneven surfaces 12/06/18: good goal progress LTG Duration 8 wks 1 Impairment right knee AROM 27-85 Short Term Goal (STG) Improve right knee AROM to 5- 110 12/06/18: good goal progress 8- 130 STG Duration 4 wks [facility] Goal (LTG) Improve right knee AROM to 0- 120 12/06/18: good goal progress 8- 130 LTG Duration 8 wks Assessment Summary Assessment Patient demonstrating improved awareness of LE alignment with functional activities. Some HS soreness persists with patient able to tolerate minimal resistance to knee flex. Physical Therapy Plan Frequency and Duration Frequency of Treatment 2x/Week Duration of Treatment 8 wks Plan of Care Start Date 11/10/18 Plan of Care End Date 01/10/19 Therapeutic Interventions Therapeutic Interventions Aquatic Therapy Gait Training Home Exercise Program Manual Therapy Neuromuscular Re-education Patient/Caregiver Education Self-Care/Home Management Soft Tissue Mobilization Taping Therapeutic Activities Therapeutic Exercises Modalities Cold Pack/Ice Massage Electric Stimulation Next Visit Focus/Plan Next Note Type Treatment Note Next Visit Plan Add sport cord for resistance with gait with emphasis on neutral LE alignment, correct muscle activation.
--- NOTE | 2018-12-21 16:45 | PT.OTN ---
Current Diagnoses Other chronic pain (12/21/18) Unilateral primary osteoarthritis, right knee (12/21/18) Pain in right knee (12/21/18) Physical Therapy Treatment Note PT-OP-A Visit Information Start: 11/10/18 14:05 Freq: Status: Active Protocol: Document 12/21/18 10:28 SAK (Rec: 12/21/18 11:20 [facility] [id number]) Out-Patient Physical Therapy Visit Information Visit Information Visit Type Treatment Note Visit Start Time 09:00 Visit Stop Time 09:55 Total Visit Minutes 57 Visit Number 14 Number of PHOTOGRAPH PRINTER Visits 0 Evaluation Information Evaluation Date 11/10/18 Precautions Precautions WBAT right LE PT-OP-B Current Condition Start: 11/10/18 14:05 Freq: Status: Active Protocol: Document 11/10/18 15:14 SAK (Rec: 11/10/18 15:25 [facility] [id number]) Current Condition History of Current Condition Onset Date 11/05/18 Current Complaints weakness, decreased ROM, swelling right knee History of Current Condition right TKA by Dr. Coley. Discharged home day after surgery. No stairs at home. Does have shower chair. No grab bars due to not wanting to drill into tile. Taking Tylenol 100mg 3x/day and Oxycodone 5mg PRN (reports taking prior to exercises, and took prior to PT today) Prior Treatments and Tests right CARLA Treatment Goals Patient/Caregiver Goals Return to dancing, taking walks Prior Functional Status Baseline Function- ADL's Independent Baseline Function- Mobility Independent Baseline Function- Gait independent, no device Baseline Function- Work/School retired Baseline Function- Recreation/Hobbies dancing 1-2x/wk, taking long walks Current Functional Impairments (Reported) Functional Limitations- ADL's painful, some assist from Functional Limitations- Mobility/Gait short distance FWW for gait uses left LE to lift right LE in and out of bed 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 PT-OP-C Subjective Start: 11/10/18 14:05 Freq: Status: Active Protocol: Document 12/21/18 10:28 CANDIDA (Rec: 12/21/18 11:20 [facility] [id number]) OP-PT Subjective Patient Comments Patient Comments Reports she tolerated more activity over weekend, no worse pain. PT-OP-G Mobility & Gait Start: 11/10/18 14:05 Freq: Status: Active Protocol: Document 11/10/18 15:14 [facility] (Rec: 11/11/18 08:52 [facility] [id number]) OP Mobility Evaluation Bed Mobility Supine to and from Sit uses left LE to move right LE Transfers Sit to Stand independent with use of UE's and decreased weight-bearing right LE OP Gait Assessment Gait Gait Assistance Required: Standby Assistance Distance (Feet) 50 Assistive Devices Assistive Device Front Wheeled Walker Gait Deviations General Gait Pattern Antalgic Decreased Stride Length Decreased Feet Clearance Flexed Trunk Factors Limiting Gait Function Factors Limiting Gait Function Decreased Strength Limited Range of Motion Pain Stair Climbing Evaluation Comments Stair Climbing Comments not assessed today. PT-OP-J Posture/Palpation/Skin Start: 11/10/18 14:05 Freq: Status: Active Protocol: Document 11/10/18 15:14 [facility] (Rec: 11/11/18 08:52 [facility] [id number]) Palpation Assessment Location right knee Palpation Findings Edema Soft Tissue Tightness Muscle Guarding Tenderness Palpation Details mild increase in warmth right knee. Skin Assessment Edema Assessment right knee Edema Degree 2+ Edema Appearance Puffy Subjective Edema Description Pain Tightness PT-OP-K Range of Motion Start: 11/10/18 14:05 Freq: Status: Active Protocol: Document 11/10/18 15:14 [facility] (Rec: 11/11/18 08:52 [facility] [id number]) Knee Goniometric Range of Motion Knee Measured in Degrees Right Flexion Active (degrees) 85 Flexion Passive (degrees) 92 Extension Active (degrees) 27 Extension Passive (degrees) 12 Left Flexion Active (degrees) 130 Extension Active (degrees) 0 Knee ROM Limitations Knee ROM Limitations Soft Tissue Tightness Muscle Weakness Pain Swelling PT-OP-M Strength Start: 11/10/18 14:05 Freq: Status: Active Protocol: Document 11/10/18 15:14 [facility] (Rec: 11/11/18 08:52 [facility] [id number]) Knee Strength Knee Manual Muscle Testing Right Comments independent SAQ within available ROM, SLR requires use of UE's with strap. Patient requires use of left LE to move right LE on and off bed Left Flexion (S2) 5 Normal Extension (L3) 5 Normal Ankle/Foot Strength Ankle and Foot Manual Muscle Testing mike Dorsiflexion (L4) 5 Normal Plantarflexion (S1) 5 Normal PT-OP-Q Treatments Start: 11/10/18 14:05 Freq: Status: Active Protocol: Document 12/21/18 10:28 [facility] (Rec: 12/21/18 11:20 [facility] [id number]) Cardio Equipment Recumbent Elliptical (Biodex) Duration (Minutes) 6 Resistance 2 Seat Position 8 Other emphasis on neutral LE alignment Bicycle (Upright) Duration (Minutes) 6 Resistance 2 Seat Position 5 Other emphasis on neutral LE alignment Gym Equipment Shuttle Recovery Unilateral Squats Resistance 37 mike Shuttle Recovery Platform Stable Reps/Time 1x10 Bilateral Squats Resistance 75 Shuttle Recovery Platform Stable Reps/Time 30x Shuttle Balance chains red Details balance and weight shift Comments fwd/bck, side: feet parallel, staggered Sport Cord fwd, back, side Cord/Resistance green Reps/Duration 5x Therapeutic Exercises Sidelying Exercises hip abd Reps/Minutes 10x clamshell Reps/Minutes 10x Sitting Exercises knee flex Equipment Used L1 TB Reps/Minutes 10x Comments light resistance Standing Exercises squats Resistance L2 TB distal thighs Comments verbal instruction to use theraband around thighs, emphasize alignment Gait Training Gait Activity stairs Description hallway stairs Level of Assistance verbal cues Distance/Duration 24 stairs Comments 4 stairs alternating pattern. Manual Therapy Treatment Soft Tissue Mobilization IT band Mobilization Type Rolling Strumming Body Position Supine TKA scar Mobilization Type Rolling Strumming Intensity/Depth Moderate quads, hamstrings Body Location right quad, HS, gastroc Mobilization Type Rolling Strumming Intensity/Depth mod Body Position Hooklying Neuro Re-Education Treatment Balance Activities hurdles Reps/Duration 6x4 Comments cues for hip and knee flex, not circumduction PT-OP-R Modalities Start: 11/10/18 14:05 Freq: Status: Active Protocol: Document 12/21/18 10:28 [facility] (Rec: 12/21/18 11:20 [facility] [id number]) Electric Stimulation Electric Stimulation Interferential Current (IFC) Body Location right knee Duration (Minutes) 12 Intensity 18 Target/Sweep Sweep Patient Position Hooklying Combined With Heat/Cold Cold Pack Comments right LE elevated with wedge, bolster, and pillow PT-OP-T Assessment and Plan Start: 11/10/18 14:05 Freq: Status: Active Protocol: Document 12/21/18 10:28 CANDIDA (Rec: 12/21/18 11:20 SAK [id number]) Physical Therapy Assessment Goals 4 Impairment lacking HEP to address functional LE strength and ROM impairments Short Term Goal (STG) Progress HEP as tolerated to include functional, closed chain ex STG Duration MET Bar Gauger And Lubricator Tender Goal (LTG) Patient to be independent and compliant with HEP (12/06/18good goal progress, ongoing progression) LTG Duration 8 wks 3 Impairment pain right knee 5-8/10 Short Term Goal (STG) decrease pain to no greater than 4/10 12/06/18: goal progress STG Duration 4 wks Bar Gauger And Lubricator Tender Goal (LTG) decrease pain to no greater than 1-2/10 12/06/18: goal progress LTG Duration 8 wks 2 Impairment Antalgic gait using FWW Short Term Goal (STG) Patient able to ambulate with SPC with min to no limp on level surfaces and stairs STG Duration MET Mcc Goal (LTG) Patient able to ambulate without assistive device with no limp on level and uneven surfaces 12/06/18: good goal progress LTG Duration 8 wks 1 Impairment right knee AROM 27-85 Short Term Goal (STG) Improve right knee AROM to 5- 110 12/06/18: good goal progress 8- 130 STG Duration 4 wks Bar Gauger And Lubricator Tender Goal (LTG) Improve right knee AROM to 0- 120 12/06/18: good goal progress 8- 130 LTG Duration 8 wks Assessment Summary Assessment Decreasing pain and improving activity level. Improved strength with MMT and functionally. Physical Therapy Plan Frequency and Duration Frequency of Treatment 2x/Week Duration of Treatment 8 wks Plan of Care Start Date 11/10/18 Plan of Care End Date 01/10/19 Therapeutic Interventions Therapeutic Interventions Aquatic Therapy Gait Training Home Exercise Program Manual Therapy Neuromuscular Re-education Patient/Caregiver Education Self-Care/Home Management Soft Tissue Mobilization Taping Therapeutic Activities Therapeutic Exercises Modalities Cold Pack/Ice Massage Electric Stimulation Next Visit Focus/Plan Next Note Type Treatment Note Next Visit Plan Transition to independent HEP after 1 further treatment.
--- NOTE | 2018-12-23 11:27 | PT.OTN ---
Current Diagnoses Other chronic pain (12/23/18) Unilateral primary osteoarthritis, right knee (12/23/18) Pain in right knee (12/23/18) Physical Therapy Treatment Note PT-OP-A Visit Information Start: 11/10/18 14:05 Freq: Status: Active Protocol: Document 12/23/18 10:41 SAK (Rec: 12/23/18 11:26 [facility] [id number]) Out-Patient Physical Therapy Visit Information Visit Information Visit Type Treatment Note Visit Start Time 09:00 Visit Stop Time 09:55 Total Visit Minutes 57 Visit Number 14 Number of WIRE COATER Visits 0 Evaluation Information Evaluation Date 11/10/18 Precautions Precautions WBAT right LE PT-OP-B Current Condition Start: 11/10/18 14:05 Freq: Status: Active Protocol: Document 11/10/18 15:14 SAK (Rec: 11/10/18 15:25 [facility] [id number]) Current Condition History of Current Condition Onset Date 11/05/18 Current Complaints weakness, decreased ROM, swelling right knee History of Current Condition right TKA by Dr. Coley. Discharged home day after surgery. No stairs at home. Does have shower chair. No grab bars due to not wanting to drill into tile. Taking Tylenol 100mg 3x/day and Oxycodone 5mg PRN (reports taking prior to exercises, and took prior to PT today) Prior Treatments and Tests right CARLA Treatment Goals Patient/Caregiver Goals Return to dancing, taking walks Prior Functional Status Baseline Function- ADL's Independent Baseline Function- Mobility Independent Baseline Function- Gait independent, no device Baseline Function- Work/School retired Baseline Function- Recreation/Hobbies dancing 1-2x/wk, taking long walks Current Functional Impairments (Reported) Functional Limitations- ADL's painful, some assist from Functional Limitations- Mobility/Gait short distance FWW for gait uses left LE to lift right LE in and out of bed 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 PT-OP-C Subjective Start: 11/10/18 14:05 Freq: Status: Active Protocol: Document 12/23/18 10:41 CANDIDA (Rec: 12/23/18 11:26 [facility] [id number]) OP-PT Subjective Patient Comments Patient Comments Feeling pretty good, gets tired but pain minimal. PT-OP-G Mobility & Gait Start: 11/10/18 14:05 Freq: Status: Active Protocol: Document 11/10/18 15:14 [facility] (Rec: 11/11/18 08:52 [facility] [id number]) OP Mobility Evaluation Bed Mobility Supine to and from Sit uses left LE to move right LE Transfers Sit to Stand independent with use of UE's and decreased weight-bearing right LE OP Gait Assessment Gait Gait Assistance Required: Standby Assistance Distance (Feet) 50 Assistive Devices Assistive Device Front Wheeled Walker Gait Deviations General Gait Pattern Antalgic Decreased Stride Length Decreased Feet Clearance Flexed Trunk Factors Limiting Gait Function Factors Limiting Gait Function Decreased Strength Limited Range of Motion Pain Stair Climbing Evaluation Comments Stair Climbing Comments not assessed today. PT-OP-J Posture/Palpation/Skin Start: 11/10/18 14:05 Freq: Status: Active Protocol: Document 11/10/18 15:14 [facility] (Rec: 11/11/18 08:52 [facility] [id number]) Palpation Assessment Location right knee Palpation Findings Edema Soft Tissue Tightness Muscle Guarding Tenderness Palpation Details mild increase in warmth right knee. Skin Assessment Edema Assessment right knee Edema Degree 2+ Edema Appearance Puffy Subjective Edema Description Pain Tightness PT-OP-K Range of Motion Start: 11/10/18 14:05 Freq: Status: Active Protocol: Document 11/10/18 15:14 [facility] (Rec: 11/11/18 08:52 [facility] [id number]) Knee Goniometric Range of Motion Knee Measured in Degrees Right Flexion Active (degrees) 85 Flexion Passive (degrees) 92 Extension Active (degrees) 27 Extension Passive (degrees) 12 Left Flexion Active (degrees) 130 Extension Active (degrees) 0 Knee ROM Limitations Knee ROM Limitations Soft Tissue Tightness Muscle Weakness Pain Swelling PT-OP-M Strength Start: 11/10/18 14:05 Freq: Status: Active Protocol: Document 11/10/18 15:14 [facility] (Rec: 11/11/18 08:52 [facility] [id number]) Knee Strength Knee Manual Muscle Testing Right Comments independent SAQ within available ROM, SLR requires use of UE's with strap. Patient requires use of left LE to move right LE on and off bed Left Flexion (S2) 5 Normal Extension (L3) 5 Normal Ankle/Foot Strength Ankle and Foot Manual Muscle Testing mike Dorsiflexion (L4) 5 Normal Plantarflexion (S1) 5 Normal PT-OP-Q Treatments Start: 11/10/18 14:05 Freq: Status: Active Protocol: Document 12/23/18 10:41 [facility] (Rec: 12/23/18 11:26 [facility] [id number]) Cardio Equipment Recumbent Elliptical (Biodex) Duration (Minutes) 6 Resistance 2 Seat Position 8 Other emphasis on neutral LE alignment Bicycle (Upright) Duration (Minutes) 6 Resistance 2 Seat Position 5 Other emphasis on neutral LE alignment Gym Equipment Shuttle Recovery Unilateral Squats Resistance 37 mike Shuttle Recovery Platform Stable Reps/Time 1x10 Bilateral Squats Resistance 75 Shuttle Recovery Platform Stable Reps/Time 30x Shuttle Balance chains red Details balance and weight shift Comments fwd/bck, side: feet parallel, staggered Therapeutic Exercises Sitting Exercises knee flex Equipment Used L1 TB Reps/Minutes 10x Comments light resistance Standing Exercises HC stretch Reps/Minutes 30 x 2 Comments JULIAN Gait Training Gait Activity stairs Description hallway stairs Level of Assistance verbal cues Distance/Duration 24 stairs Comments 4 stairs alternating pattern. Manual Therapy Treatment Soft Tissue Mobilization IT band Mobilization Type Rolling Strumming Body Position Supine TKA scar Mobilization Type Rolling Strumming Intensity/Depth Moderate quads, hamstrings Body Location right quad, HS, gastroc Mobilization Type Rolling Strumming Intensity/Depth mod Body Position Hooklying PT-OP-R Modalities Start: 11/10/18 14:05 Freq: Status: Active Protocol: Document 12/23/18 10:41 [facility] (Rec: 12/23/18 11:26 [facility] [id number]) Electric Stimulation Electric Stimulation Interferential Current (IFC) Body Location right knee Duration (Minutes) 12 Intensity 18 Target/Sweep Sweep Patient Position Hooklying Combined With Heat/Cold Cold Pack Comments right LE elevated with wedge, bolster, and pillow PT-OP-T Assessment and Plan Start: 11/10/18 14:05 Freq: Status: Active Protocol: Document 12/23/18 10:41 [facility] (Rec: 12/23/18 11:26 [facility] [id number]) Physical Therapy Assessment Goals 4 Impairment lacking HEP to address functional LE strength and ROM impairments Short Term Goal (STG) Progress HEP as tolerated to include functional, closed chain ex STG Duration 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) Patient to be independent and compliant with HEP (12/06/18good goal progress, ongoing progression) LTG Duration MET 3 Impairment pain right knee 5-8/10 Short Term Goal (STG) decrease pain to no greater than 4/10 12/06/18: goal progress STG Duration 4 wks Nursing Home Goal (LTG) decrease pain to no greater than 1-2/10 12/06/18: goal progress LTG Duration MET 2 Impairment Antalgic gait using FWW Short Term Goal (STG) Patient able to ambulate with SPC with min to no limp on level surfaces and stairs STG Duration MET Nursing Home Goal (LTG) Patient able to ambulate without assistive device with no limp on level and uneven surfaces 12/06/18: good goal progress LTG Duration MET 1 Impairment right knee AROM 27-85 Short Term Goal (STG) Improve right knee AROM to 5- 110 12/06/18: good goal progress 8- 130 STG Duration 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) Improve right knee AROM to 0- 120 12/06/18: good goal progress 8- 130 LTG Duration MET Assessment Summary Assessment Goals achieved, patient ready for discharge. Physical Therapy Plan Discharge Physical Therapy Discharge Reasons Goals Met
== END 2019-02-10 11:23 | disposition home or self-care (01) ==
LOC: PHYS 10:30
PROVIDERS: PCP Internal Medicine; Visit Provider Orthopaedic Surgery
DX: M17.11 Unilateral primary osteoarthritis, right knee (principal); M25.561 Pain in right knee; G89.29 Other chronic pain
CPT/HCPCS: 97014; 97110; 97116; 97140; 97162; 97535; G0283

== ENCOUNTER → 2019-04-20 12:37 | Outpatient (CLI) | payer MEDICARE, OTHER, SELFPAY ==
[2018-03-04 18:31] VITALS: BMI 23.7
--- NOTE | 2019-04-20 13:26 | DI.CT.S_ITS ---
PROCEDURE: CT CHEST WO CON INDICATIONS: pulmonary nodule TECHNIQUE: Noncontrast 5 mm thick sections acquired from the pulmonary apices to the posterior costophrenic angles. 1 mm lung window, 5 mm thick coronal and sagittal and 7 mm axial MIP reformats were then acquired. For radiation dose reduction, the following was used: automated exposure control, adjustment of mA and/or kV according to patient size. COMPARISON: [facility], CT, CT ANGIO CHEST PE PROTOCOL, 03/04/2018, 14:54. FINDINGS: Image quality: Excellent. Lungs and pleura: No acute air space opacities. Previously identified pulmonary nodules are again seen, located within the left apex seen on series 3 image 44 measuring 11 mm, and also seen on the right at the right middle lobe anteriorly, measuring 8 mm, seen on series 3 image 205. No pleural effusions or pneumothorax. Central and peripheral airways are patent and normal in caliber. Mediastinum: Heart size is normal. No pericardial effusion. No mediastinal adenopathy by size criteria. Thoracic aorta and central pulmonary arteries are normal in size. Esophagus is normal in caliber. No hiatal hernia. Bones and chest wall: No suspicious bony lesions. No vertebral body compression fractures. No axillary or supraclavicular adenopathy by size criteria. Thyroid gland appears normal where well seen. Abdomen: Visualized upper abdominal solid organs and bowel loops appear normal in the absence of contrast. IMPRESSION: Stable appearing bilateral small pulmonary nodules, measuring 11 mm at the left apex and 8 mm at the anterior border of the lateral segment right middle lobe. Given the size of these structures a followup noncontrast low dose pulmonary nodule followup CT scan is recommended in 1 year. Assuming no change thereafter no additional followup would be recommended. Dictated by: Fred Barnes M.D. on 04/20/2019 at 13:27 Approved by: Fred Barnes M.D. on 04/20/2019 at 13:34
== END ==
PROVIDERS: PCP Internal Medicine; Visit Provider Internal Medicine
DX: R91.8 Other nonspecific abnormal finding of lung field (principal)
CPT/HCPCS: 71250

== ENCOUNTER → 2020-01-06 13:35 | Outpatient (CLI) | payer MEDICARE, OTHER, SELFPAY ==
[2018-03-04 18:31] VITALS: BMI 23.7
--- NOTE | 2020-01-06 13:37 | DI.MG.S_ITS ---
UNILATERAL LEFT DIGITAL SCREENING MAMMOGRAM 3D/2D WITH CAD POST MASTECTOMY: 01/06/2020 CLINICAL: Personal history of breast cancer. Comparison is made to exams dated: 11/04/2018 mammogram, 11/03/2017 mammogram, and 05/15/2016 mammogram - [facility]. The tissue of left breast is extremely dense, which lowers the sensitivity of mammography. Current study was also evaluated with a Computer Aided Detection (CAD) system. There are benign calcifications in the left breast. No significant masses, calcifications, or other findings are seen in the breast. There has been no significant interval change. IMPRESSION: There is no mammographic evidence of malignancy. A 1 year screening mammogram is recommended. This exam was interpreted at Station ID: [id number]. NOTE: For mammograms, a report in lay terms will be sent to the patient. Approximately 15% of breast malignancies will not be visualized mammographically. In the management of a palpable breast mass, a negative mammogram must not discourage biopsy of a clinically suspicious lesion. Electronically Signed By: Eliana chen/benny:01/06/2020 15:02:46 copy to: PRITI PEREZ letter sent: Normal Exam ACR BI-RADS Category 2: Benign Finding(s) [id number]
== END ==
PROVIDERS: PCP Internal Medicine
DX: Z12.31 Encounter for screening mammogram for malignant neoplasm of breast (principal); Z86.000 Personal history of in-situ neoplasm of breast
CPT/HCPCS: 77063; 77067

== ENCOUNTER 2020-01-30 19:19 | Emergency (ER) | payer MEDICARE, OTHER, SELFPAY ==
[2018-03-04 18:31] VITALS: BMI 23.7
[2020-01-30] VITALS (14 sets, daily range): BP systolic 113–171; BP diastolic 69–99; PULSE 87–115; RESP 11–20; O2SAT 94–100
--- NOTE | 2020-01-30 19:31 | DI.RAD.S_ITS ---
PROCEDURE: XR CHEST 1V INDICATIONS: shortness of breath TECHNIQUE: One view of the chest was acquired. COMPARISON: [facility], CT, CT CHEST WO CON, 04/20/2019, 12:39. [facility], CR, XR CHEST 1V, 03/04/2018, 14:38. FINDINGS: Surgical changes and devices: None. Lungs and pleura: Left basilar infiltrate consistent with pneumonia. No pleural effusions or pneumothorax. Mediastinum: Mediastinal contours appear normal. Heart size is normal. Bones and chest wall: No suspicious bony lesions. Overlying soft tissues appear unremarkable. IMPRESSION: Left lower lobe pneumonia. Dictated by: Nevaeh Sales M.D. on 01/30/2020 at 20:03 Approved by: Nevaeh Sales M.D. on 01/30/2020 at 20:05
--- NOTE | 2020-01-30 19:34 | ED_ITS ---
HPI - Arrhythmia/Palpitations General Chief Complaint: Arrhythmia/Palpitations Stated Complaint: Dizzy/Light Headed/SOB/High BP and Pulse/Afib Time Seen by Provider: 01/30/20 19:30 Source: patient Mode of arrival: Ambulatory Limitations: no limitations History of Present Illness HPI narrative: The patient complains of dizziness. Have rest there is no disease, when she stands up, she developed dizziness. There is slight dyspnea associated with the dizziness. She has no associated chest pain. She has atrial fib, she is on Cardizem XR 240 mg daily. With the current symptoms she has no chest pain. She has no dyspnea at rest. She has no peripheral edema, no orthopnea. She was diagnosed with atrial fib about 2 years ago. She has no history of CAD/mi. She denies recent illness. She has had no headache, sore throat, cough. She is generally in normal sinus rhythm, she felt the conversion to atrial fib while at home, coinciding with the development of dizziness. Related Data Home Medications Medication Instructions Recorded Confirmed NUTRITIONAL SUPPLEMENT (CRANBERRY) 1 cap PO Q DAY #0 06/27/11 10/25/19 polyethylene glycol 3350 [Miralax] 17 gm PO Q DAY #0 01/28/12 10/25/19 gabapentin 300 mg capsule 300 mg PO DAILY 03/16/18 10/25/19 vitamin B complex 1 tab PO DAILY 06/04/18 10/25/19 Previous Rx's Medication Instructions Recorded estradiol [Vagifem] 10 mcg VG SEE INSTRUCTIONS #90 tab 04/04/19 lisinopril 5 mg tablet 5 mg PO DAILY #90 tab 08/15/19 hydrochlorothiazide 25 mg tablet 25 mg PO DAILY #90 tab 09/05/19 apixaban 5 mg tablet See Rx Instructions .ROUTE 10/06/19 .COMPLEX #180 tablet atorvastatin 20 mg tablet See Rx Instructions .ROUTE 10/06/19 .COMPLEX #90 tablet diltiazem HCl 240 mg See Rx Instructions .ROUTE 10/21/19 capsule,extended release 24 hr .COMPLEX #90 capsule fluconazole 150 mg tablet 150 mg PO ONCE #1 tab 10/25/19 triamcinolone acetonide 0.1 % 1 applictn TOP BID #15 gram 10/25/19 topical ointment pramipexole 0.5 mg tablet See Rx Instructions .ROUTE 11/14/19 .COMPLEX #90 tablet metoprolol tartrate 12.5 mg PO BID #30 tab 01/31/20 Allergies Allergy/AdvReac Type Severity Reaction Status Date / Time niacin [NIACIN] AdvReac Unknown itching Verified 10/25/19 09:55 Review of Systems Review of Systems ROS Unobtainable: All systems reviewed & are unremarkable except as noted in HPI and below Constitutional Constitutional: Denies chills, Denies fever(s), Denies lethargy and Denies weakness Eyes Eyes: Denies change in vision ENT Ears, Nose, Mouth, and Throat: Denies vertigo, Reports dizziness, Denies neck pain and Denies sore throat Cardiovascular Cardiovascular: Denies chest pain, Denies syncope, Reports rapid heart rate and Reports dyspnea Respiratory Respiratory: Reports dyspnea Gastrointestinal Gastrointestinal: Denies abdominal pain, Denies nausea and Denies vomiting Musculoskeletal Musculoskeletal: Denies back pain and Denies neck pain Integumentary/Breasts Skin/Breast: Denies erythema, Denies rash and Denies wounds Neurologic Neurologic: Denies confusion, Denies vertigo, Reports dizziness, Denies syncope, Denies memory loss and Denies weakness Psychiatric Psychiatric: Denies confusion, Denies memory loss and Denies mood swings Patient History Medical History Arthritis of finger (Chronic 2013) Back pain (Chronic) Cataract (Chronic 2012) Chicken pox (Resolved) Essential hypertension (Chronic 1999) Frequent UTI (Chronic 1993) Hip arthritis (Chronic 2013) Hyperglycemia (Chronic 06/27/11) Knee osteoarthritis (Resolved) Measles (Resolved) Mixed hyperlipidemia (Chronic 1999) Mumps (Resolved) Neoplasm of right breast, 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 Father No problems noted. 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) leisure activities: exercise ([place]), games ([employer]) and other (Dance) Smoking Status: Former smoker Tobacco: How many years used: 20 Smokeless tobacco user: other (Cigarettes) quit status: quit date established (1979) second hand exposure: No alcohol intake: current (Couple of margaritas a day. Currently not drinking.) substance use type: does not use Smoking Status: Former smoker alcohol intake frequency: 0-2 drinks per day Substance Use Type: does not use Exam Initial Vital Signs Initial Vital Signs: Vital Signs Pulse Rate 110 H 01/30/20 19:29 Respiratory Rate 20 01/30/20 19:29 Blood Pressure 171/99 H 01/30/20 19:29 Pulse Oximetry 98 01/30/20 19:29 Const General: cooperative and well developed Nutritional Appearance: well nourished [facility] Head: normocephalic and atraumatic Mouth: oral mucosae normal Throat: posterior oropharynx normal Eyes Pupils: PERRL EOM: EOM intact bilaterally Neck Neck: No JVD Chest Chest: normal palpation of entire chest wall Resp Effort & Inspection: normal respiratory effort and able to speak in complete sentences Auscultation: clear to auscultation bilaterally, no rales, no rhonchi and no wheezes Cardio Rate: tachycardic Rhythm: abnormal rhythm irregularly irregular Heart Sounds: S1 normal, S2 normal, no click, no gallops, no murmurs and no rubs Pulses: normal peripheral pulses GI Inspection: non-distended Palpation: soft, no hepatosplenomegaly, No guarding, No pulsatile mass and No tender Auscultation: normal bowel sounds Back/Spine/Pelvis Back: No back tenderness and No CVA tenderness Thoracic/Lumbar Spine: thoracic and lumbar spine normal to inspection Skin General: no rashes or lesions noted, No jaundice and No petechiae Neuro General: patient alert, patient oriented x3, gait normal and no focal motor deficits Speech: speech normal Extrem General: full ROM, no clubbing, cyanosis or edema, no pedal edema and no calf t enderness Psych Appearance: grossly normal Mental Status: mental status grossly normal Attitude: cooperative Thought Process: normal Procedures Cardioversion Consent Signed: Yes Indication: Atrial fib Stability: Stable Joules used: 50 and 100 (x2) Cardiac rhythm post-cardioversion: Atrial fib Additional Comments: Three attempts of cardioversion were attempted, efforts were not successful. The patient has no dyspnea, no chest pain, no weakness or dizziness after the attempts. Procedural Sedation Consent signed: Yes Time out performed: Yes Indication: cardioversion ASA Class: II Mallampati Airway Classification: Class I Time of Last PO Intake: 06:00 Preparation: groundwater monitoring technician applied, pulse oximeter, capnometry used, supplemental O2 applied, suction/airway equipment at bedside and IV secured IV Etomidate dose (mg): 16 ED Sedation Level: Moderate (Concious) Patient Tolerated Procedure: Well Complications: none Interventions: Oxygen applied Course Course Course Narrative: Rate control was successful with IV Lopressor, and oral Cardizem. Cardioversion was unsuccessful. The patient is anticoagulated. In addition to the Cardizem she are ready takes, Lopressor 12.5 mg b.i.d. was added. She is clinically stable and will be discharged home despite the ineffective cardioversion. She is advised to contact her doctor tomorrow for follow-up. Of note, radiology interpretation of the chest x-ray suggests left lower lobe infiltrate. The patient has no clinical findings suggesting pneumonia. Orders Ordered: ED Orders 01/30/20 19:27 EKG-12 Lead Stat 01/30/20 19:31 XR chest 1V Stat 01/30/20 19:35 Complete Blood Count AUTO DIFF Stat Comprehensive Metabolic Panel Stat Lipase Stat Partial Thromboplastin Time Stat Prothrombin Time INR Stat Troponin & CK Cardiac Panel Stat 01/30/20 22:41 EKG-12 Lead Routine Discontinued Medications Diltiazem HCl (Cardizem Cd) 240 mg PO NOW ONE Stop: 01/30/20 20:19 Last Admin: 01/30/20 20:24 Dose: 240 mg Documented by: CARLA Etomidate (Amidate) 16 mg IV NOW ONE Stop: 01/30/20 22:26 Last Admin: 01/30/20 22:35 Dose: 16 mg Documented by: CARLA Sodium Chloride (Normal Saline 0.9%) 1,000 mls @ 150 mls/hr IV CONT GANESH Last Infusion: 01/31/20 00:34 Dose: 0 mls/hr Documented by: Admin: 01/30/20 19:51 Dose: 150 mls/hr Documented by: CARLA Sodium Chloride (Normal Saline 0.9%) 1,000 mls @ 125 mls/hr IV CONT GANESH Last Admin: 01/30/20 21:26 Dose: Not Given Documented by: CARLA Metoprolol Tartrate (Lopressor) 5 mg IV Q5M GANESH Stop: 01/30/20 19:56 Last Admin: 01/30/20 20:04 Dose: 5 mg Documented by: Admin: 01/30/20 19:58 Dose: 5 mg Documented by: Admin: 01/30/20 19:52 Dose: 5 mg Documented by: CARLA Metoprolol Tartrate (Lopressor) 25 mg PO NOW ONE Stop: 01/31/20 00:10 Last Admin: 01/31/20 00:12 Dose: 25 mg Documented by: CARLA Vital Signs Vital signs: Vital Signs - 8 hr 01/30/20 19:29 01/30/20 19:55 01/30/20 20:04 Pulse Rate 110 H 115 H 105 H Respiratory Rate 20 11 L 11 L Blood Pressure 171/99 H Blood Pressure [Right Arm] 124/77 113/69 Pulse Oximetry 98 97 97 01/30/20 20:08 01/30/20 21:45 01/30/20 22:30 Pulse Rate 87 87 105 H Respiratory Rate 13 18 12 Blood Pressure Blood Pressure [Right Arm] 117/78 154/96 H 134/85 Pulse Oximetry 95 96 97 01/30/20 22:35 01/30/20 22:40 01/30/20 22:45 Pulse Rate 102 H 93 H 109 H Respiratory Rate 15 14 15 Blood Pressure Blood Pressure [Right Arm] 134/83 134/85 121/94 H Pulse Oximetry 100 95 94 01/30/20 22:55 01/30/20 23:00 01/30/20 23:05 Pulse Rate 90 98 H 96 H Respiratory Rate 17 13 12 Blood Pressure Blood Pressure [Right Arm] 118/84 123/80 128/78 Pulse Oximetry 97 96 96 06/15/20 23:10 01/30/20 23:15 01/31/20 00:34 Pulse Rate 95 H 92 H 78 Respiratory Rate 16 14 14 Blood Pressure Blood Pressure [Right Arm] 117/84 134/87 130/80 Pulse Oximetry 96 96 96 MDM - Arrhythmia/Palpitations Lab Data Result diagrams: 01/30/20 19:35 01/30/20 19:35 Labs: Lab Results 01/30/20 01/30/20 01/30/20 Range/Units 19:35 19:35 19:35 WBC 7.3 (4.5-11.0) X10^3/uL RBC 4.80 (4.0-5.2) X10^6/uL Hgb 15.5 (12.0-16.0) g/dL Hct 44.2 (36-46) % MCV 92.0 (80-100) fL MCH 32.3 (26-34) PG MCHC 35.1 (30-36) % RDW 13.4 (11.6-14.8) % Plt Count 251 (150-400) X10^3/uL Neut % (Auto) 55.4 (50-75) % Lymph % (Auto) 31.5 (25-40) % [place] % (Auto) 11.8 (3-14) % Eos % (Auto) 0.6 L (2-4) % Baso % (Auto) 0.7 (0-2) % Neut # (Auto) 4100 (9449-5079) /uL Lymph # (Auto) 2300 (1637-6477) /uL [place] # (Auto) 900 (0-900) /uL Eos # (Auto) 0 (0-450) /uL Baso # (Auto) 100 (0-100) /uL PT 14.4 H (10.1-12.7) SECONDS INR 1.2 (0.9-1.3) APTT 37 H D (26.4-36.2) SECONDS Sodium 135 L (137-145) mmol/L Potassium 3.7 (3.4-5.1) mmol/L Chloride 101 (98-107) mmol/L Carbon Dioxide 22 (22-32) mmol/L BUN 18 H (7-17) mg/dL Creatinine 0.83 (0.52-1.04) mg/dL Estimated GFR > 60.0 (>60) mL/min BUN/Creatinine Ratio 21.7 (6-22) Glucose 120 H (80-110) mg/dL Calcium 10.0 (8.4-10.2) mg/dL Total Bilirubin 0.6 (0.2-1.3) mg/dL AST 33 (14-36) IU/L ALT 22 (<35) IU/L Alkaline Phosphatase 115 (38-126) U/L Total Creatine Kinase 116 (30-135) U/L CK-MB (CK-2) 2.05 (<2.37) ng/mL CK-MB (CK-2) Rel Index 1.8 (1.5-5.0) % Troponin I < 0.012 (0.01-0.034) ng/mL Total Protein 7.7 (6.3-8.2) g/dL Albumin 4.6 (3.5-5.0) g/dL Globulin 3.1 (1.7-4.1) g/dL Albumin/Globulin Ratio 1.5 (1.0-2.8) Lipase 126 (23-300) U/L Imaging Data Chest x-ray: Radiologist's Impresson: [address] [address] XRay Report Signed Patient: [place] JMR#: [id number] : 2Acct:[id number] Age/Sex: 79 / FDate of Service: 01/30/20 Loc: ED Accession Number: [id number] Procedure: XR chest 1V Ordering Provider: Olegario Bailey MD PROCEDURE: XR CHEST 1V INDICATIONS: shortness of breath TECHNIQUE: One view of the chest was acquired. COMPARISON: [facility], CT, CT CHEST WO CON, 04/20/2019, 12:39. [facility], CR, XR CHEST 1V, 03/04/2018, 14:38. FINDINGS: Surgical changes and devices: None. Lungs and pleura: Left basilar infiltrate consistent with pneumonia. No pleural effusions or pneumothorax. Mediastinum: Mediastinal contours appear normal. Heart size is normal. Bones and chest wall: No suspicious bony lesions. Overlying soft tissues appear unremarkable. IMPRESSION: Left lower lobe pneumonia. Dictated by: Nevaeh Sales M.D. on 01/30/2020 at 20:03 Approved by: Nevaeh Sales M.D. on 01/30/2020 at 20:05 ECG Data Attestation: I personally reviewed and interpreted this ECG as follows: (EKG 1. AFib with RVR, rate 113. Low voltage in the precordial leads. Possible old anterior [place]. Nonspecific ST T wave changes. EKG 2.: Rate 103 beats per minute. No significant changes from EKG 1. ) Discharge Plan Departure Patient Disposition: Home Clinical Impression: Atrial fibrillation Qualifiers: Atrial fibrillation type: other persistent Qualified Code(s): I48.19 - Other persistent atrial fibrillation Discharge Date/Time: 01/31/20 00:55 Instructions: DI for Atrial Fibrillation Activity Restrictions/Additional Instructions: Continue current medications. Continue your current dose of Cardizem. Also Continue lisinopril for hypertension. Continue Eliquis, the blood thinner. Add Metoprolol 12.5 mg [address] Gutierrez tomorrow for follow-up. He will likely want to review medic ations, he may want to send you to a logistics center manager. Return the ER for chest pain, weakness or dizziness. Prescriptions: New metoprolol tartrate 25 mg tablet 12.5 mg PO BID Qty: 30 RF: 0 No Action NUTRITIONAL SUPPLEMENT (CRANBERRY) 1 cap PO Q DAY Qty: 0 RF: 0 polyethylene glycol 3350 [Miralax] 119 GM powder 17 gm PO Q DAY Qty: 0 RF: 0 estradiol [Vagifem] 10 mcg tablet 10 mcg VG SEE INSTRUCTIONS Qty: 90 RF: 3 lisinopril 5 mg tablet 5 mg PO DAILY Qty: 90 RF: 1 hydrochlorothiazide 25 mg tablet 25 mg PO DAILY Qty: 90 RF: 1 Eliquis 5 mg tablet See Rx Instructions .ROUTE .COMPLEX Qty: 180 RF: 1 atorvastatin 20 mg tablet See Rx Instructions .ROUTE .COMPLEX Qty: 90 RF: 1 diltiazem HCl 240 mg capsule,extended release 24hr See Rx Instructions .ROUTE .COMPLEX Qty: 90 RF: 1 pramipexole 0.5 mg tablet See Rx Instructions .ROUTE .COMPLEX Qty: 90 RF: 1 vitamin B complex tablet 1 tab PO DAILY RF: 0 gabapentin 300 mg capsule 300 mg PO DAILY RF: 0 fluconazole 150 mg tablet 150 mg PO ONCE Qty: 1 RF: 1 triamcinolone acetonide 0.1 % ointment 1 applictn TOP BID Qty: 15 RF: 2 Referrals: Mike Gutierrez MD [Primary Care Provider] -
[2020-01-30 19:44] LABS: Add Manual Diff / Slide Review NO; Basophils Absolute Auto 100 /uL (0-100); Basophils Percent Auto 0.7 % (0-2); Eosinophils Absolute Auto 0 /uL (0-450); Eosinophils Percent Auto 0.6 % (2-4); Hematocrit 44.2 % (36-46); Hemoglobin 15.5 g/dL (12.0-16.0); Lymphocytes Absolute Auto 2300 /uL (1100-4500); Lymphocytes Percent Auto 31.5 % (25-40); Mean Corpuscular HGB Conc 35.1 % (30-36); Mean Corpuscular Hemoglobin 32.3 PG (26-34); Monocytes Absolute Auto 900 /uL (0-900); Monocytes Percent Auto 11.8 % (3-14); Neutrophils Absolute Auto 4100 /uL (1500-7000); Neutrophils Percent Auto 55.4 % (50-75); Platelet Count 251 X10^3/uL (150-400); Red Cell Distribution Width 13.4 % (11.6-14.8); White Blood Cell Count 7.3 X10^3/uL (4.5-11.0)
[2020-01-30] MEDS: SODIUM CHLORIDE 0.9% 1,000 ML 150 ML IV (19:51)
[2020-01-30] MEDS: METOPROLOL TARTRATE 5 MG/5 ML INJ IV ×3 (19:52→20:04)
[2020-01-30 19:54] LABS: INR 1.2 (0.9-1.3); Prothrombin Time 14.4 SECONDS (10.1-12.7)
[2020-01-30 19:57] LABS: PTT Partial Thromboplastin Tim 37 SECONDS (26.4-36.2)
[2020-01-30 19:59] LABS: Alanine Aminotransferase 22 IU/L (<35); Albumin 4.6 g/dL (3.5-5.0); Albumin Globulin Ratio 1.5 (1.0-2.8); Alkaline Phosphatase 115 U/L (38-126); Aspartate Aminotransferase 33 IU/L (14-36); BUN Creatinine Ratio 21.7 (6-22); Bilirubin Total 0.6 mg/dL (0.2-1.3); Blood Urea Nitrogen 18 mg/dL (7-17); Carbon Dioxide 22 mmol/L (22-32); Chloride 101 mmol/L (98-107); Creatine Kinase 116 U/L (30-135); Estimated Glomerular Filt Rate > 60.0 mL/min (>60); Globulin 3.1 g/dL (1.7-4.1); Glucose 120 mg/dL (80-110); HEMOLYSIS < 15 (0-50); Lipase 126 U/L (23-300); Potassium 3.7 mmol/L (3.4-5.1); Sodium 135 mmol/L (137-145); Total Protein 7.7 g/dL (6.3-8.2)
[2020-01-30 20:11] LABS: Troponin I < 0.012 ng/mL (0.01-0.034)
[2020-01-30 20:14] LABS: CKMB % Relative Index 1.8 % (1.5-5.0); Creatine Kinase MB 2.05 ng/mL (<2.37)
[2020-01-30] MEDS: dilTIAZem CD 240 MG CAP PO (20:24)
[2020-01-30] MEDS: ETOMIDATE 2 MG/ML 10 ML VIAL 16 MG IV (22:35)
[2020-01-31] MEDS: METOPROLOL IR 25 MG TABLET PO (00:12)
[2020-01-31 00:34] VITALS: BP 130/80; PULSE 78; RESP 14; O2SAT 96
== END 2020-01-31 00:55 | disposition home or self-care (01) ==
PROVIDERS: Emergency Provider Emergency Medicine; PCP Internal Medicine
DX: I48.91 Unspecified atrial fibrillation (principal); Z79.01 Long term (current) use of anticoagulants; R06.00 Dyspnea, unspecified; R00.0 Tachycardia, unspecified
CPT/HCPCS: 36415; 71045; 80053; 82550; 82553; 83690; 84484; 85025; 85610; 85730; 92960; 93005; 96361; 96374; 99285

== ENCOUNTER → 2021-01-08 10:15 | Outpatient (CLI) | payer MEDICARE, OTHER, SELFPAY ==
[2018-03-04 18:31] VITALS: BMI 23.7
--- NOTE | 2021-01-08 | DI.MG.S_ITS ---
UNILATERAL LEFT DIGITAL SCREENING MAMMOGRAM 3D/2D WITH CAD POST MASTECTOMY: 01/08/2021 CLINICAL: Routine screening. Breast cancer. Comparison is made to exams dated: 01/06/2020 mammogram, 11/04/2018 mammogram, 11/03/2017 mammogram, 10/15/2016 breast MRI, and 05/15/2016 mammogram - [facility]. CT chest 04/20/2019. The tissue of left breast is extremely dense, which lowers the sensitivity of mammography. Current study was also evaluated with a Computer Aided Detection (CAD) system. There are benign calcifications in the left breast. No significant masses, calcifications, or other findings are seen in the breast. There has been no significant interval change. IMPRESSION: BENIGN There is no mammographic evidence of malignancy. A 1 year screening mammogram is recommended. This exam was interpreted at Station ID: [id number]. NOTE: For mammograms, a report in lay terms will be sent to the patient. Approximately 15% of breast malignancies will not be visualized mammographically. In the management of a palpable breast mass, a negative mammogram must not discourage biopsy of a clinically suspicious lesion. Electronically Signed By: Sandro Sanchez M.D. slc/:01/08/2021 11:42:59 copy to: PRITI PEREZ letter sent: Normal Exam ACR BI-RADS Category 2: Benign Finding(s) [id number]
== END ==
PROVIDERS: PCP Internal Medicine; Referring Provider Internal Medicine; Visit Provider Internal Medicine
DX: Z12.31 Encounter for screening mammogram for malignant neoplasm of breast (principal); Z85.3 Personal history of malignant neoplasm of breast
CPT/HCPCS: 77063; 77067

== ENCOUNTER → 2021-04-02 07:04 | Outpatient (CLI) | payer MEDICARE, OTHER, SELFPAY ==
[2018-03-04 18:31] VITALS: BMI 23.7
[2021-04-02 09:19] LABS: Add Manual Diff / Slide Review NO; Basophils Absolute Auto 0 /uL (0-100); Basophils Percent Auto 0.7 % (0-2); Eosinophils Absolute Auto 100 /uL (0-450); Eosinophils Percent Auto 1.3 % (2-4); Hematocrit 40.8 % (36-46); Hemoglobin 13.7 g/dL (12.0-16.0); Lymphocytes Absolute Auto 2300 /uL (1100-4500); Lymphocytes Percent Auto 42.9 % (25-40); Mean Corpuscular HGB Conc 33.5 % (30-36); Mean Corpuscular Hemoglobin 31.3 PG (26-34); Mean Corpuscular Volume 93.3 fL (80-100); Monocytes Absolute Auto 500 /uL (0-900); Monocytes Percent Auto 9.4 % (3-14); Neutrophils Absolute Auto 2400 /uL (1500-7000); Neutrophils Percent Auto 45.7 % (50-75); Platelet Count 265 X10^3/uL (150-400); Red Blood Cell Count 4.37 X10^6/uL (4.0-5.2); Red Cell Distribution Width 13.9 % (11.6-14.8); White Blood Cell Count 5.3 X10^3/uL (4.5-11.0)
[2021-04-02 09:30] LABS: Alanine Aminotransferase 21 IU/L (<35); Albumin 3.9 g/dL (3.5-5.0); Albumin Globulin Ratio 1.3 (1.0-2.8); Alkaline Phosphatase 112 U/L (38-126); Aspartate Aminotransferase 30 IU/L (14-36); BUN Creatinine Ratio 32.9 (6-22); Bilirubin Total 0.4 mg/dL (0.2-1.3); Blood Urea Nitrogen 23 mg/dL (7-17); Calcium 9.5 mg/dL (8.4-10.2); Carbon Dioxide 30 mmol/L (22-32); Chloride 103 mmol/L (98-107); Cholesterol 194 mg/dL (140-199); Estimated Glomerular Filt Rate > 60.0 mL/min (>60); Globulin 2.9 g/dL (1.7-4.1); Glucose 116 mg/dL (80-110); HDL Cholesterol 64 mg/dL (40-60); HEMOLYSIS < 15 (0-50); LDL Cholesterol Calculated 113 mg/dL (<100); Potassium 4.2 mmol/L (3.4-5.1); Sodium 137 mmol/L (137-145); Total Protein 6.8 g/dL (6.3-8.2); Triglycerides 86 mg/dL (35-150)
== END ==
PROVIDERS: PCP Internal Medicine; Referring Provider Internal Medicine; Visit Provider Internal Medicine
DX: E78.2 Mixed hyperlipidemia (principal); I10 Essential (primary) hypertension; I48.0 Paroxysmal atrial fibrillation; Z79.01 Long term (current) use of anticoagulants
CPT/HCPCS: 36415; 80053; 80061; 85025

== ENCOUNTER 2021-12-19 07:31 | Emergency (ER) | payer MEDICARE, OTHER, SELFPAY ==
[2018-03-04 18:31] VITALS: BMI 23.7
[2021-12-19] VITALS (20 sets, daily range): BP systolic 138–175; BP diastolic 67–97; PULSE 43–63; RESP 11–19; TEMP 36.8; O2SAT 96–98; BMI 25.0
--- NOTE | 2021-12-19 07:43 | DI.RAD.S_ITS ---
PROCEDURE: XR CHEST 1V INDICATIONS: chest pain TECHNIQUE: One view of the chest was acquired. COMPARISON: [facility], CR, XR CHEST 1V, 01/30/2020, 19:38. FINDINGS: Surgical changes and devices: Surgical clips in the right axilla. Overlying monitoring wires. Lungs and pleura: Lungs are clear. No pleural effusions or pneumothorax. Mediastinum: Mediastinal contours appear normal. Heart size is normal. Bones and chest wall: No suspicious bony lesions. Overlying soft tissues appear unremarkable. IMPRESSION: No acute cardiopulmonary disease. Dictated by: Eliana James M.D. on 12/19/2021 at 8:28 Approved by: Eliana James M.D. on 12/19/2021 at 8:30
[2021-12-19 08:32] LABS: Add Manual Diff / Slide Review NO; Basophils Absolute Auto 0 /uL (0-100); Basophils Percent Auto 0.8 % (0-2); Eosinophils Absolute Auto 0 /uL (0-450); Eosinophils Percent Auto 0.8 % (2-4); Hematocrit 40.1 % (36-46); Hemoglobin 13.7 g/dL (12.0-16.0); Lymphocytes Absolute Auto 1900 /uL (1100-4500); Lymphocytes Percent Auto 36.7 % (25-40); Mean Corpuscular HGB Conc 34.2 % (30-36); Mean Corpuscular Hemoglobin 31.5 PG (26-34); Monocytes Absolute Auto 500 /uL (0-900); Monocytes Percent Auto 10.1 % (3-14); Neutrophils Absolute Auto 2600 /uL (1500-7000); Neutrophils Percent Auto 51.6 % (50-75); Platelet Count 219 X10^3/uL (150-400); Red Blood Cell Count 4.36 X10^6/uL (4.0-5.2); Red Cell Distribution Width 13.8 % (11.6-14.8); White Blood Cell Count 5.1 X10^3/uL (4.5-11.0)
--- NOTE | 2021-12-19 08:39 | ED_ITS ---
HPI - Chest Pain General Chief Complaint: Chest Pain Stated Complaint: Chest pain Time Seen by Provider: 12/19/21 07:43 Source: patient Mode of arrival: Ambulatory Limitations: no limitations History of Present Illness HPI narrative: Patient is a 81-year-old female history of atrial fibrillation on Eliquis, hyperlipidemia, hypertension presenting today with right-sided chest discomfort. She says the last 2 mornings if she has been of sharp stabbing discomfort and pain. She said yesterday she noticed it when she got up was sharp and stabbing on the right side he went away however this morning around 2:00 a.m. she woke up for it woke her from her sleep she does not know but experienced it again. It actually has continued, but now while resting in the emergency department she says it has subsided but is still present. She can not tell if it is worse with movement or exertion it is not reproducible with palpation. She has no known history of coronary artery disease. She denies any nausea or vomiting no abdominal pain. She did just travel and get back from [place]. Related Data Home Medications Medication Instructions Recorded Confirmed NUTRITIONAL SUPPLEMENT (CRANBERRY) 1 cap PO Q DAY #0 06/27/11 06/13/21 polyethylene glycol 3350 17 17 gm PO Q DAY #0 01/28/12 06/13/21 gram/dose oral powder (Miralax) cholecalciferol (vitamin D3) 125 125 mcg PO DAILY 02/03/20 06/13/21 mcg (5,000 unit) capsule diltiazem HCl 180 mg 180 mg PO DAILY cap 10/04/20 06/13/21 capsule,extended release 24 hr flecainide 50 mg tablet 50 mg PO BID tab 10/04/20 06/13/21 Previous Rx's Medication Instructions Recorded estradiol 10 mcg vaginal tablet 10 mcg VAGINAL 3XW #90 tab 11/09/20 (Vagifem) fluticasone propionate 50 2 spray INTRANASAL BEDTIME #48 g 01/07/21 mcg/actuation nasal spray,suspension apixaban 5 mg tablet (Eliquis) 5 mg PO BID #180 tab 07/01/21 atorvastatin 20 mg tablet 20 mg PO DAILY #90 tab 07/01/21 hydrochlorothiazide 25 mg tablet 25 mg PO DAILY #90 tab 07/01/21 pramipexole 0.5 mg tablet See Rx Instructions .ROUTE 07/01/21 .COMPLEX #90 tablet lisinopril 5 mg tablet 5 mg PO DAILY #90 tab 10/08/21 Allergies Allergy/AdvReac Type Severity Reaction Status Date / Time niacin [NIACIN] AdvReac Unknown itching Verified 06/13/21 14:03 Review of Systems Review of Systems Narrative: GENERAL: Denies chills, fatigue, malaise, fever, sweats, travel HEENT: Denies sinus pain, ear pain, sore throat, difficulty swallowing, neck p ain RESPIRATORY: Denies dyspnea, cough, wheezing, hemoptysis, sputum. CARDIOVASCULAR: See HPI GASTROINTESTINAL: Denies nausea, vomiting, abdominal pain, diarrhea, constipation, melena. : Denies dysuria, frequency, incontinence, hematuria, urinary retention, flank pain. MUSCULOSKELETAL: Denies weakness, joint pain, or bony pain SKIN: No rash, no erythema, no pruritus NEUROLOGIC: Denies weakness, dizziness, headache, numbness, change in speech, confusion PSYCHIATRIC: No concerning psychosocial issues. 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 Father No problems noted. 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 Currently not drinking.) substance use type: does not use Smoking Status: Former smoker alcohol intake frequency: a few times a week Substance Use Type: does not use Exam Initial Vital Signs Initial Vital Signs: Vital Signs Temperature 98.3 F 12/19/21 07:33 Pulse Rate 50 L 12/19/21 07:33 Respiratory Rate 17 12/19/21 07:33 Blood Pressure 175/82 H 12/19/21 07:33 Pulse Oximetry 98 12/19/21 07:33 GENERAL: Alert well-appearing 81-year-old female in no acute distress. HEENT: Head atraumatic,EOMI, pupils reactive, face symmetric, moist mucous membranes CARDIOVASCULAR: Regular rate and rhythm without murmurs, rubs or gallops. Non reproducible pain from epigastric over to right upper quadrant RESPIRATORY: Breath sounds equal bilaterally, no wheezes rales or rhonchi. ABDOMEN: Soft, nontender. Normoactive bowel sounds all 4 quadrants. No guarding or rebound. Negative Arora sign EXTREMITIES: Normal range of motion, no clubbing or edema. Neurovascularly intact NEUROLOGICAL: Alert and oriented x4.Normal gait and speech. SKIN: Warm, dry, no laceration, no petechiae, no rashes or lesions. Scores HEART Score Heart Score history: Slightly Suspicious Heart Score EKG: Normal Heart Score Age: > or = 65 years old Heart Score risk factors: No known risk factors Heart Score troponin: < or = to normal limit Heart Score Total: 2 Course Orders Ordered: ED Orders 12/19/21 10:53 US abdomen limited Stat Discontinued Medications Nitroglycerin (Nitroglycerin 0.4 Mg Sl Tab) 0.4 mg SL NOW ONE Stop: 12/19/21 09:28 Last Admin: 12/19/21 09:40 Dose: 0.4 mg Documented by: NAT Vital Signs Vital signs: Vital Signs - 8 hr 12/19/21 11:00 12/19/21 11:30 12/19/21 11:31 Pulse Rate 48 L 47 L 48 L Respiratory Rate 12 12 16 Blood Pressure 157/71 H 162/72 H Pulse Oximetry 96 98 97 12/19/21 12:00 12/19/21 12:01 Pulse Rate 54 L 51 L Respiratory Rate 11 L 14 Blood Pressure 159/97 H Pulse Oximetry 98 96 MDM - Chest Pain Lab Data Result diagrams: 12/19/21 07:45 12/19/21 07:45 Labs: Lab Results 12/19/21 12/19/21 12/19/21 Range/Units 07:45 07:45 09:13 WBC 5.1 (4.5-11.0) X10^3/uL RBC 4.36 (4.0-5.2) X10^6/uL Hgb 13.7 (12.0-16.0) g/dL Hct 40.1 (36-46) % MCV 92.0 (80-100) fL MCH 31.5 (26-34) PG MCHC 34.2 (30-36) % RDW 13.8 (11.6-14.8) % Plt Count 219 (150-400) X10^3/uL Neut % (Auto) 51.6 (50-75) % Lymph % (Auto) 36.7 (25-40) % [place] % (Auto) 10.1 (3-14) % Eos % (Auto) 0.8 L (2-4) % Baso % (Auto) 0.8 (0-2) % Neut # (Auto) 2600 (1991-2119) /uL Lymph # (Auto) 1900 (6482-1476) /uL [place] # (Auto) 500 (0-900) /uL Eos # (Auto) 0 (0-450) /uL Baso # (Auto) 0 (0-100) /uL Sodium 141 (137-145) mmol/L Potassium 4.1 (3.4-5.1) mmol/L Chloride 108 H (98-107) mmol/L Carbon Dioxide 27 (22-32) mmol/L BUN 12 (7-17) mg/dL Creatinine 0.66 (0.52-1.04) mg/dL Estimated GFR > 60 (>60) mL/min BUN/Creatinine Ratio 18.2 (6-22) Glucose 119 H (80-110) mg/dL Calcium 9.2 (8.4-10.2) mg/dL Total Bilirubin 0.5 (0.2-1.3) mg/dL AST 31 (14-36) IU/L ALT 18 (<35) IU/L Alkaline Phosphatase 106 (38-126) U/L Total Creatine Kinase 135 (30-135) U/L CK-MB (CK-2) 2.15 (<2.37) ng/mL CK-MB (CK-2) Rel Index 1.6 (1.5-5.0) % Troponin I < 0.012 0.013 (0.01-0.034) ng/mL Total Protein 7.1 (6.3-8.2) g/dL Albumin 4.2 (3.5-5.0) g/dL Globulin 2.9 (1.7-4.1) g/dL Albumin/Globulin Ratio 1.4 (1.0-2.8) Lipase 100 (23-300) U/L Imaging Data Chest x-ray: Radiologist's Impression: Signed Patient: [place] MR#: [id number] : 1940 Acct:[id number] Age/Sex: 81 / F Date of Service: 12/19/21 Loc: Accession Number: [id number] ?? Procedure: XR chest 1V Ordering Provider: Faye Soler D.O. PROCEDURE:? XR CHEST 1V ? INDICATIONS:? chest pain ? TECHNIQUE:? One view of the chest was acquired.? ? COMPARISON:? [facility], , XR CHEST 1V, 01/30/2020, 19:38. ? FINDINGS:? ? Surgical changes and devices:? Surgical clips in the right axilla.? Overlying mo nitoring wires. ? Lungs and pleura:? Lungs are clear.? No pleural effusions or pneumothorax.? ? Mediastinum:? Mediastinal contours appear normal.? Heart size is normal.? ? Bones and chest wall:? No suspicious bony lesions.? Overlying soft tissues appear unremarkable.? ? IMPRESSION:? No acute cardiopulmonary disease.? ? ? Dictated by: Eliana James M.D. on 12/19/2021 at 8:28 ? ? Approved by: Eliana James M.D. on 12/19/2021 at 8:30 ? US - abdomen: Radiologist's Impression: Ultrasound Report Signed Patient: [place] Sierra MR#: [id number] : 1940 Acct:[id number] Age/Sex: 81 / F Date of Service: 12/19/21 Loc: ED Accession Number: [id number] ?? Procedure: US abdomen limited Ordering Provider: Faye Soler D.O. PROCEDURE: US ABDOMEN LIMITED ? INDICATIONS:? RUQ PAIN ? TECHNIQUE:? Real-time focused scanning was performed of the abdomen, with image documentation.? ? COMPARISON:? None. ? FINDINGS:? ? Liver is normal in size and homogeneous in echotexture. ? Gallbladder is sonographically normal. No gallstones. No gallbladder wall thickening.? Gallbladder wall measures 1.0 millimeters.? No pericholecystic fluid. No sonographic Arora sign. ? Biliary tree is nondilated.? Common bile duct measures 4.8 millimeters. ? Pancreas is not well visualized due to bowel gas and cannot be evaluated. ? IMPRESSION:? No sonographic evidence of cholelithiasis or cholecystitis. If there is continued clinical concern for cholecystitis, a nuclear medicine HIDA scan should be considered for further evaluation. ? ? ? Dictated by: Lenka Baeza MD, PhD on 12/19/2021 at 11:45 ? ? Approved by: Lenka Baeza MD, PhD on 12/19/2021 at 11:46 ? ECG Data Interpretation: EKG 1. Sinus bradycardia rate 56 TX interval 184 QRS [address] changes similar to previous EKG EKG 2. Sinus rhythm [address] changes [facility] Narrative Medical decision making narrative: Patient has had 2 days of some right-sided chest discomfort. Woke her up 2 m ornings in a row. She did get nitroglycerin here in the ED she says it maybe helped a little but she really does not have any pain any longer. She has 2- troponins 2 normal EKGs ultrasound of right upper quadrant is also negative. This is unlikely to be pulmonary embolism she is on Eliquis and is not hypoxic complaining of shortness of breath. She has a low heart score. At this time I strongly recommend that she follow up outpatient for further testing. Discharge Plan Departure Patient Disposition: Home Clinical Impression: Atypical chest pain Instructions: DI for Atypical Chest Pain Activity Restrictions/Additional Instructions: *You have been diagnosed with atypical chest pain *What to do: At this time blood work and workup in the emergency department is overall reassuring. You still need an echocardiogram and stress test however this can be done with your primary care provider *Continue to take medications as directed *Follow up with your primary care provider in 2-3 days or call [phone] *Return to ER if you should have return if you should have any new or worsening chest pain palpitations dizziness or any new, worsening or concerning symptoms Prescriptions: No Action NUTRITIONAL SUPPLEMENT (CRANBERRY) 1 cap PO Q DAY Qty: 0 0RF polyethylene glycol 3350 [Miralax] 119 GM powder 17 gm PO Q DAY Qty: 0 0RF estradiol [Vagifem] 10 mcg tablet 10 mcg vaginal 3XW Qty: 90 3RF Rx Instructions: 3 times a week fluticasone propionate 50 mcg/actuation spray,suspension 2 spray intranasal BEDTIME Qty: 48 3RF Rx Instructions: administer into each nostril hydrochlorothiazide 25 mg tablet 25 mg PO DAILY Qty: 90 3RF pramipexole 0.5 mg tablet See Rx Instructions .ROUTE .COMPLEX Qty: 90 3RF Dose Instruction: TAKE 1/2 TO 1 TABLET BY MOUTH AT BEDTIME. Rx Instructions: TAKE 1/2 TO 1 TABLET BY MOUTH AT BEDTIME. Eliquis 5 mg tablet 5 mg PO BID Qty: 180 3RF atorvastatin 20 mg tablet 20 mg PO DAILY Qty: 90 3RF lisinopril 5 mg tablet 5 mg PO DAILY Qty: 90 3RF diltiazem HCl 180 mg capsule,extended release 24hr 180 mg PO DAILY 0RF flecainide 50 mg tablet 50 mg PO BID 0RF cholecalciferol (vitamin D3) 125 mcg (5,000 unit) capsule 125 mcg PO DAILY 0RF Referrals: Mike Gutierrez MD [Primary Care Provider] -
[2021-12-19 08:58] LABS: Alanine Aminotransferase 18 IU/L (<35); Albumin 4.2 g/dL (3.5-5.0); Albumin Globulin Ratio 1.4 (1.0-2.8); Alkaline Phosphatase 106 U/L (38-126); Aspartate Aminotransferase 31 IU/L (14-36); BUN Creatinine Ratio 18.2 (6-22); Bilirubin Total 0.5 mg/dL (0.2-1.3); Blood Urea Nitrogen 12 mg/dL (7-17); Calcium 9.2 mg/dL (8.4-10.2); Carbon Dioxide 27 mmol/L (22-32); Chloride 108 mmol/L (98-107); Creatine Kinase 135 U/L (30-135); Estimated Glomerular Filt Rate > 60 mL/min (>60); Globulin 2.9 g/dL (1.7-4.1); Glucose 119 mg/dL (80-110); HEMOLYSIS < 15 (0-50); Lipase 100 U/L (23-300); Potassium 4.1 mmol/L (3.4-5.1); Sodium 141 mmol/L (137-145); Total Protein 7.1 g/dL (6.3-8.2)
[2021-12-19 09:09] LABS: Troponin I < 0.012 ng/mL (0.01-0.034)
[2021-12-19 09:14] LABS: CKMB % Relative Index 1.6 % (1.5-5.0); Creatine Kinase MB 2.15 ng/mL (<2.37)
[2021-12-19] MEDS: NITROGLYCERIN 0.4 MG SL TAB SL (09:40)
--- NOTE | 2021-12-19 09:45 | PC.NURSE ---
repeat ekg and repeat troponin done, nitro dose # 1 given for cp 5/10
[2021-12-19 10:11] LABS: Troponin I 0.013 ng/mL (0.01-0.034)
--- NOTE | 2021-12-19 10:53 | DI.US.S_ITS ---
PROCEDURE: US ABDOMEN LIMITED INDICATIONS: RUQ PAIN TECHNIQUE: Real-time focused scanning was performed of the abdomen, with image documentation. COMPARISON: None. FINDINGS: Liver is normal in size and homogeneous in echotexture. Gallbladder is sonographically normal. No gallstones. No gallbladder wall thickening. Gallbladder wall measures 1.0 millimeters. No pericholecystic fluid. No sonographic Arora sign. Biliary tree is nondilated. Common bile duct measures 4.8 millimeters. Pancreas is not well visualized due to bowel gas and cannot be evaluated. IMPRESSION: No sonographic evidence of cholelithiasis or cholecystitis. If there is continued clinical concern for cholecystitis, a nuclear medicine HIDA scan should be considered for further evaluation. Dictated by: Lenka Baeza MD, PhD on 12/19/2021 at 11:45 Approved by: Lenka Baeza MD, PhD on 12/19/2021 at 11:46
== END 2021-12-19 12:19 | disposition home or self-care (01) ==
PROVIDERS: Emergency Provider Emergency Medicine; PCP Internal Medicine
DX: R07.89 Other chest pain (principal)
CPT/HCPCS: 36415; 71045; 76705; 80053; 82550; 82553; 83690; 84484; 85025; 93005; 93010; 99284

== ENCOUNTER → 2022-01-22 15:01 | Outpatient (CLI) | payer MEDICARE, OTHER, SELFPAY ==
[2018-03-04 18:31] VITALS: BMI 23.7
--- NOTE | 2022-01-22 15:04 | DI.MG.S_ITS ---
UNILATERAL LEFT DIGITAL SCREENING MAMMOGRAM 3D/2D WITH CAD POST MASTECTOMY: 01/22/2022 CLINICAL: Routine screening. Personal history of right breast cancer. Comparison is made to exams dated: 01/08/2021 mammogram, 01/06/2020 mammogram, 11/04/2018 mammogram, and 11/03/2017 mammogram - [facility]. The tissue of left breast is extremely dense, which lowers the sensitivity of mammography. Current study was also evaluated with a Computer Aided Detection (CAD) system. There are benign calcifications in the left breast. No significant masses, calcifications, or other findings are seen in the breast. There has been no significant interval change. IMPRESSION: BENIGN There is no mammographic evidence of malignancy. A 1 year screening mammogram is recommended. This exam was interpreted at Station ID: [id number]. NOTE: For mammograms, a report in lay terms will be sent to the patient. Approximately 15% of breast malignancies will not be visualized mammographically. In the management of a palpable breast mass, a negative mammogram must not discourage biopsy of a clinically suspicious lesion. Electronically Signed By: Sandro sharpe/benny:01/23/2022 08:27:43 copy to: PRITI PEREZ letter sent: Normal Exam ACR BI-RADS Category 2: Benign Finding(s) 3342F
== END ==
PROVIDERS: PCP Internal Medicine; Referring Provider Internal Medicine; Visit Provider Internal Medicine
DX: Z12.31 Encounter for screening mammogram for malignant neoplasm of breast (principal); Z85.3 Personal history of malignant neoplasm of breast
CPT/HCPCS: 77063; 77067

== ENCOUNTER 2022-01-26 21:42 | Emergency (ER) | payer MEDICARE, OTHER, SELFPAY ==
[2018-03-04 18:31] VITALS: BMI 23.7
[2022-01-26 21:52] VITALS: BP 171/86; PULSE 72; RESP 20; TEMP 36.6; O2SAT 97
[2022-01-26 23:11] LABS: Appearance Urine UA SL CLOUDY; Bilirubin Urine UA NEGATIVE (NEGATIVE); Color Urine UA RED; Glucose Urine UA NEGATIVE (Negative); Ketones Urine UA NEGATIVE (NEGATIVE); Leukocyte Esterase Urine UA TRACE (NEGATIVE); Nitrite Urine UA NEGATIVE (Negative); Occult Blood Urine UA 3+ (Negative); Protein Urine UA 2+ (Negative); Specific Gravity Urine UA <=1.005 (1.000-1.035); Urobilinogen Urine UA 0.2 E.U./dL (0.2)
[2022-01-26 23:13] LABS: RBC Urine >100/HPF (0-5/HPF); WBC Urine 10-30/HPF (0-5/HPF); pH Urine UA 7.5 (4.5-8.0)
[2022-01-26 23:14] LABS: Bacteria Urine Occasional (0-1); Culture Indicated Urine Specimen Cultured; Squamous Epithelial Cell Urine None Seen (0-5/HPF)
--- NOTE | 2022-01-26 23:55 | ED.GENADULT ---
HPI - General Adult General Chief complaint: Urogenital-Female Stated complaint: Thinks bladder infection Time Seen by Provider: 01/26/22 22:53 Source: patient Mode of arrival: Ambulatory History of Present Illness HPI narrative: 81-year-old woman with a history of atrial fibrillation anticoagulated on apixaban, hyperlipidemia, hypertension who presents with urinary tract symptoms developing over the course of today. She woke this morning stating that she was somewhat fatigued and the midday she noticed some urgency that then progressed to frequency and by this evening she was beginning to notice some hematuria. She did increase her water intake today but has not found that that is been particularly helpful. She describes some mild chills but no fevers, cough, abdominal pain, flank pain. She has had no palpitations no headache no rashes. She states her last urinary tract infection was probably 20 years ago this is not a chronic problem for her. She describes no vaginal discharge. Related Data Home Medications Medication Instructions Recorded Confirmed NUTRITIONAL SUPPLEMENT (CRANBERRY) 1 cap PO Q DAY ##0 06/27/11 06/13/21 polyethylene glycol 3350 17 17 gm PO Q DAY ##0 01/28/12 06/13/21 gram/dose oral powder (Miralax) cholecalciferol (vitamin D3) 125 125 mcg PO DAILY 02/03/20 06/13/21 mcg (5,000 unit) capsule diltiazem HCl 180 mg 180 mg PO DAILY 10/04/20 06/13/21 capsule,extended release 24 hr flecainide 50 mg tablet 50 mg PO BID 10/04/20 06/13/21 Previous Rx's Medication Instructions Recorded estradiol 10 mcg vaginal tablet 10 mcg vaginal 3XW #90 tabs 11/09/20 (Vagifem) fluticasone propionate 50 2 spray intranasal BEDTIME #48 01/07/21 mcg/actuation nasal grams spray,suspension apixaban 5 mg tablet (Eliquis) 5 mg PO BID #180 tabs 07/01/21 atorvastatin 20 mg tablet 20 mg PO DAILY #90 tabs 07/01/21 hydrochlorothiazide 25 mg tablet 25 mg PO DAILY #90 tabs 07/01/21 pramipexole 0.5 mg tablet See Rx Instructions .Route 07/01/21 .COMPLEX #90 tabs lisinopril 5 mg tablet 5 mg PO DAILY #90 tabs 10/08/21 phenazopyridine 100 mg tablet 100 mg PO TID 6 doses #6 tabs 01/27/22 (Pyridium) sulfamethoxazole 800 1 tab PO BID #10 tabs 01/27/22 mg-trimethoprim 160 mg tablet (Bactrim DS) Allergies Allergy/AdvReac Type Severity Reaction Status Date / Time niacin [NIACIN] AdvReac Unknown itching Verified 06/13/21 14:03 Review of Systems Review of Systems Narrative: Remainder of complete review of systems is otherwise unremarkable except for that included in the HPI. 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 Father No problems noted. 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 Currently not drinking.) substance use type: does not use Smoking Status: Former smoker alcohol intake frequency: a few times a week Substance Use Type: does not use Exam Initial Vital Signs Initial Vital Signs: Vital Signs Temperature 97.9 F 01/26/22 21:52 Pulse Rate 72 01/26/22 21:52 Respiratory Rate 20 01/26/22 21:52 Blood Pressure 171/86 H 01/26/22 21:52 Pulse Oximetry 97 01/26/22 21:52 Oxygen Delivery Method 01/26/22 21:52 General: Healthy appearing, in no acute distress. Able to give a complete and coherent history. Well-nourished well-developed Respiratory: Full and symmetrical air movement Cardiac: Regular rate and rhythm no murmurs no bruits Abdomen: Soft, nontender, good bowel tones, no flank pain Skin: Warm and dry, no rashes Neurologic: Grossly neurologically intact with no obvious asymmetries or abnormalities Extremities: No trauma, well perfused Psych: Cooperative, appropriate insight and affect Course Orders Ordered: ED Orders 01/26/22 22:45 Urinalysis and Microscopic Stat Urine Culture Stat Vital Signs Vital signs: Vital Signs - 8 hr 01/26/22 21:52 Temperature 97.9 F Pulse Rate 72 Respiratory Rate 20 Blood Pressure 171/86 H Pulse Oximetry 97 Oxygen Delivery Method Room Air Medical Decision Making Lab Data Labs: Lab Results 01/26/22 Range/Units 22:45 Urine Color Red Urine Appearance Sl cloudy Urine pH 7.5 (4.5-8.0) Ur Specific [place] <=1.005 (1.000-1.035) Urine Protein 2+ H (Negative) Urine Glucose (UA) Negative (Negative) g/dL Urine Ketones Negative (NEGATIVE) Urine Occult Blood 3+ H (Negative) Urine Nitrate Negative (Negative) Urine Bilirubin Negative (NEGATIVE) Urine Urobilinogen 0.2 (0.2) E.U./dL Ur Leukocyte Esterase Trace H (NEGATIVE) Urine RBC >100/hpf H (0-5/HPF) Urine WBC 10-30/hpf H (0-5/HPF) Ur Squamous Epith Cells None seen (0-5/HPF) Urine Bacteria Occasional (0-1) (None) Ur Culture Indicated? Specimen cultured Urine Dip Bedside Urine Glucose Negative Bedside Urine Bilirubin - Negative Bedside Urine Ketone - Negative Urine Specific [place] 1.005 Bedside Urine Occult Blood +++ Bedside Urine pH 7.0 Bedside Urine Protein + 30 Bedside Urine Urobilinogen - Negative Bedside Urine Nitrite - Negative Bedside Urine Leukocytes + 70 Esterase Point of care testing: Urine Dip Bedside Urine Glucose Negative Bedside Urine Bilirubin - Negative Bedside Urine Ketone - Negative Urine Specific [place] 1.005 Bedside Urine Occult Blood +++ Bedside Urine pH 7.0 Bedside Urine Protein + 30 Bedside Urine Urobilinogen - Negative Bedside Urine Nitrite - Negative Bedside Urine Leukocytes + 70 Esterase MDM Narrative Medical decision making narrative: 81-year-old woman with approximately 12 hours of developing urinary tract infection symptoms including dysuria frequency and now hematuria. No fevers chills or flank pain to suggest systemic infection. She is given a dose of Septra as well as Pyridium in the emergency department and prescriptions for both of these to [facility]. At this point with no evidence of worsening infection she will be safe for home discharge. Discharge Plan Departure Patient Disposition: Home Clinical Impression: Urinary tract infection Instructions: DI for Urinary Tract Infection (UTI) Activity Restrictions/Additional Instructions: Thank you for coming in today Your history, physical and urinalysis are all absolute consistent with a developing bladder infection. At this time it does not look to be systemic such as sepsis or pyelonephritis. I have given you a prescription for 5 days of Septra as well as 2-3 days of Pyridium to help with the bladder pain and spasm. [facility] tomorrow morning with the 1st doses given this evening in the emergency department If you find that you are getting worse or develop any new symptoms, please feel free to return to the emergency department for further evaluation. Prescriptions: New sulfamethoxazole-trimethoprim [Bactrim DS] 800-160 mg tablet 1 tab PO BID Qty: 10 0RF phenazopyridine [Pyridium] 100 mg tablet 100 mg PO TID Qty: 6 0RF No Action NUTRITIONAL SUPPLEMENT (CRANBERRY) 1 cap PO Q DAY Qty: 0 polyethylene glycol 3350 [Miralax] 119 GM powder 17 gm PO Q DAY Qty: 0 estradiol [Vagifem] 10 mcg tablet 10 mcg vaginal 3XW Qty: 90 3RF Rx Instructions: 3 times a week fluticasone propionate 50 mcg/actuation spray,suspension 2 spray intranasal BEDTIME Qty: 48 3RF Rx Instructions: administer into each nostril hydrochlorothiazide 25 mg tablet 25 mg PO DAILY Qty: 90 3RF pramipexole 0.5 mg tablet See Rx Instructions .ROUTE .COMPLEX Qty: 90 3RF Dose Instruction: TAKE 1/2 TO 1 TABLET BY MOUTH AT BEDTIME. Rx Instructions: TAKE 1/2 TO 1 TABLET BY MOUTH AT BEDTIME. Eliquis 5 mg tablet 5 mg PO BID Qty: 180 3RF atorvastatin 20 mg tablet 20 mg PO DAILY Qty: 90 3RF lisinopril 5 mg tablet 5 mg PO DAILY Qty: 90 3RF diltiazem HCl 180 mg capsule,extended release 24hr 180 mg PO DAILY flecainide 50 mg tablet 50 mg PO BID cholecalciferol (vitamin D3) 125 mcg (5,000 unit) capsule 125 mcg PO DAILY Referrals: Mike Gutierrez MD [Primary Care Provider] -
[2022-01-27] MEDS: PHENAZOPYRIDINE 100 MG TABLET PO (00:08)
[2022-01-27] MEDS: TRIMETH/SULFA 160/800 (DS) TABLET 1 TAB PO (00:08)
[2022-01-27 00:27] VITALS: BP 127/79; PULSE 53; RESP 15; O2SAT 98
== END 2022-01-27 00:29 | disposition home or self-care (01) ==
PROVIDERS: Emergency Provider Emergency Medicine; PCP Internal Medicine
DX: N39.0 Urinary tract infection, site not specified (principal)
CPT/HCPCS: 81001; 81003; 87077; 87086; 87186; 99283

== ENCOUNTER → 2022-02-08 13:56 | Outpatient (CLI) | payer MEDICARE, OTHER, SELFPAY ==
[2018-03-04 18:31] VITALS: BMI 23.7
--- NOTE | 2022-02-08 13:59 | DI.RAD.S_ITS ---
PROCEDURE: XR WRIST RT MIN 3V INDICATIONS: fall TECHNIQUE: 4 views of the wrist were acquired. COMPARISON: None. FINDINGS: Bones: Subtle cortical irregularity along the distal radius noted on the oblique view. No dislocation. No suspicious bony lesions. Mild negative ulnar variance. Mild degenerative changes of the wrist most prominent at the triscaphe joint. Scaphoid view: No fracture. Soft tissues: No suspicious soft tissue calcifications. Mild soft tissue swelling. IMPRESSION: Subtle cortical irregularity of the distal radius noted on the oblique view may represent a nondisplaced fracture. Recommend correlation for point tenderness of this area. Mild degenerative changes of the wrist. Negative ulnar variance. Dictated by: Manny Samayoa D.O. on 02/08/2022 at 13:24 Approved by: Manny Samayoa D.O. on 02/08/2022 at 13:27
== END ==
PROVIDERS: PCP Internal Medicine; Referring Provider Physician Assistant; Visit Provider Physician Assistant
DX: M25.431 Effusion, right wrist (principal)
CPT/HCPCS: 73110